=== PATIENT | female | born 1935 | race Caucasian/White ===

== ENCOUNTER 2024-01-13 12:16 | Inpatient (IN) | payer MEDICARE, BC, OTHER ==
--- NOTE | 2024-01-13 12:47 | ED ---
General Adult HPI - General Chief complaint: Fall Stated complaint: AMS Time Seen by Provider: 01/13/24 12:25 Source: patient, EMS, RN notes reviewed, old records reviewed Mode of arrival: EMS - History of Present Illness Initial comments: This is an 88-year-old female who presents to the emergency department after being found down by a neighbor. Patient herself states she fell down next to her recliner but according to EMS at the time they found her she was unable to figure out how she got on the ground. Patient is on Eliquis. Patient denies any pain at this time. Patient does have severe dementia according to the neighbors. Patient denies a headache patient denies neck pain patient has numbness weakness. Patient denies any chest pain difficulty breathing shortness of breath. Patient has any abdominal pain. Patient has any extremity pain. - Related Data Home Medications Medication Instructions Recorded Confirmed Apixaban [Eliquis] 5 mg PO BID 05/16/21 01/13/24 Aspirin EC [Ecotrin Low Dose] 81 mg PO DAILY 05/16/21 01/13/24 Furosemide [Lasix] 20 mg PO DAILY 05/16/21 01/13/24 Metoprolol Tartrate [Lopressor] 50 mg PO BID 05/16/21 01/13/24 Simvastatin [Zocor] 20 mg PO HS 05/16/21 01/13/24 allopurinoL [Zyloprim] 100 mg PO DAILY 05/16/21 01/13/24 hydrALAZINE HCL [Apresoline] 25 mg PO BID 01/13/24 01/13/24 Allergies Allergy/AdvReac Type Severity Reaction Status Date / Time No Known Allergies Allergy Verified 01/13/24 15:06 Review of Systems ROS Statement: Those systems with pertinent positive or pertinent negative responses have been documented in the HPI. ROS Other: All systems not noted in ROS Statement are negative. Past Medical History Past Medical History: Atrial Fibrillation Additional Past Medical History / Comment(s): Gout approx 20 years ago History of Any Multi-Drug Resistant Organisms: None Reported Past Surgical History: No Surgical Hx Reported Past Anesthesia/Blood Transfusion Reactions: No Reported Reaction Past Psychological History: No Psychological Hx Reported Smoking Status: Never smoker Past Alcohol Use History: None Reported Past Drug Use History: None Reported General Exam - General Exam Comments Initial Comments: GENERAL: Patient is well-developed and well-nourished. Patient is nontoxic and well- hydrated and is in no acute distress. ENT: Neck is soft and supple. No significant lymphadenopathy is noted. Oropharynx is clear. Moist mucous membranes. Neck has full range of motion without eliciting any pain. EYES: The sclera were anicteric and conjunctiva were pink and moist. Extraocular movements were intact and pupils were equal round and reactive to light. Eyelids were unremarkable. PULMONARY: Unlabored respirations. Good breath sounds bilaterally. No audible rales rhonchi or wheezing was noted. CARDIOVASCULAR: There is a regular rate and rhythm without any murmurs gallops or rubs. ABDOMEN: Soft and nontender with normal bowel sounds. SKIN: Skin is clear with no lesions or rashes and otherwise unremarkable. Left side of the head in the temporal region is mildly erythematous NEUROLOGIC: Patient is alert and oriented x 2. Cranial nerves II through XII are grossly intact. Motor and sensory are also intact. Normal speech, volume and content. Symmetrical smile. MUSCULOSKELETAL: Normal extremities with adequate strength and full range of motion. LYMPHATICS: No significant lymphadenopathy is noted PSYCHIATRIC: Normal psychiatric evaluation. Course Vital Signs 01/13/24 01/13/24 12:19 17:02 Temperature 97.8 F 97.6 F Pulse Rate 126 H 117 H Respiratory 18 18 Rate Blood Pressure 137/64 143/88 O2 Sat by Pulse 96 98 Oximetry Medical Decision Making - Medical Decision Making EKG shows atrial fibrillation with rapid ventricular response at 117 bpm QRS is 81 QT is 322 QTc is 392. Patient's EKG shows no ST segment ovation or depression. Was pt. sent in by a medical professional or institution (, PA, HOB MACHINE OPERATOR, urgent care, hospital, or usp...) When possible be specific @ -No Did you speak to anyone other than the patient for history (EMS, parent, family, police, friend...)? What history was obtained from this source @ -No Did you review nursing and triage notes (agree or disagree)? Why? @ -I reviewed and agree with nursing and triage notes Were old charts reviewed (outside hosp., previous admission, EMS record, old EKG, old radiological studies, urgent care reports/EKG's, usp records)? Report findings @ -No old charts were reviewed Differential Diagnosis? @ -Differential Altered Mental Status: Hypoglycemia, DKA, hypercapnia, ETOH, overdose, CO poisoning, trauma, myxedema coma, HTN encephalopathy, infection, encephalitis, psychosis, intercranial hemorrhage, hepatic encephalopathy, meningitis, CVA, this is not meant to be an all-inclusive list EKG interpreted by me (3pts min.). @ -As above X-rays interpreted by me (1pt min.). @ -Chest x-ray shows no acute abnormality CT interpreted by me (1pt min.). @ -CT of the brain and C-spine showed no acute abnormality U/S interpreted by me (1pt. min.). @ -None done What testing was considered but not performed or refused? (CT, X-rays, U/S, labs)? Why? @ -None What meds were considered but not given or refused? Why? @ -None Did you discuss the management of the patient with other professionals (rtini garcia i.eLeigh Robbins, PA, HOB MACHINE OPERATOR, lab, RT, psych nurse, social worker health services, traveling operator, teacher, chief investment officer, case checker)? Give summary @ -[facility] Was smoking cessation discussed for >3mins.? @ -No Was critical care preformed (if so, how long)? @ -No Were there social determinants of health that impacted care today? How? (Homelessness, low income, unemployed, alcoholism, drug addiction, transportation, low edu. Level, literacy, decrease access to med. care, residential, rehab)? @ -No Was there de-escalation of care discussed even if they declined (Discuss DNR or withdrawal of care, Hospice)? DNR status @ -No What co-morbidities impacted this encounter? (DM, HTN, Smoking, COPD, CAD, Cancer, CVA, ARF, Chemo, Hep., AIDS, mental health diagnosis, sleep apnea, morbid obesity)? @ -None Was patient admitted / discharged? Hospital course, mention meds given and route, prescriptions, significant lab abnormalities, going to OR and other pertinent info. @ -Patient was started on antibiotics for the urinary tract infection. Patient was also hydrated because her lab work indicated she was very dehydrated. Patient CPK was elevated and it will be repeated in the morning. [facility] admit the patient wrote admitting orders Undiagnosed new problem with uncertain prognosis? @ -No Drug Therapy requiring intensive monitoring for toxicity (Heparin, Nitro, Insulin, Cardizem)? @ -No Were any procedures done? @ -No Diagnosis/symptom? @ -Dehydration Acute, or Chronic, or Acute on Chronic? @ -Acute Uncomplicated (without systemic symptoms) or Complicated (systemic symptoms)? @ -Complicated Side effects of treatment? @ -No Exacerbation, Progression, or Severe Exacerbation? @ -No Poses a threat to life or bodily function? How? (Chest pain, [place], [place], pneumonia, PE, COPD, DKA, ARF, appy, cholecystitis, CVA, Diverticulitis, Homicidal, Suicidal, threat to staff... and all critical care pts) @ -No Diagnosis/symptom? @ -Elevated CPK Acute, or Chronic, or Acute on Chronic? @ -Acute Uncomplicated (without systemic symptoms) or Complicated (systemic symptoms)? @ -Complicated Side effects of treatment? @ -None Exacerbation, Progression, or Severe Exacerbation] @ -No Poses a threat to life or bodily function? @ -No Diagnosis/symptom? @ -Urinary tract Acute, or Chronic, or Acute on Chronic? @ -Acute Uncomplicated (without systemic symptoms) or Complicated (systemic symptoms)? @ -Uncomplicated Side effects of treatment? @ -None Exacerbation, Progression, or Severe Exacerbation] @ -No Poses a threat to life or bodily function? @ -No - Lab Data Result diagrams: 01/13/24 12:41 01/13/24 12:41 Lab Results 01/13/24 01/13/24 01/13/24 Range/Units 12:41 12:41 16:54 WBC 15.3 H (3.8-10.6) k/uL RBC 4.74 (3.80-5.40) m/uL Hgb 14.8 (11.4-16.0) gm/dL Hct 45.4 (34.0-46.0) % MCV 95.9 (80.0-100.0) fL MCH 31.2 (25.0-35.0) pg MCHC 32.6 (31.0-37.0) g/dL RDW 13.3 (11.5-15.5) % Plt Count 236 (150-450) k/uL MPV 9.1 Neutrophils % 89 % Lymphocytes % 5 % Monocytes % 5 % Eosinophils % 0 % Basophils % 0 % Neutrophils # 13.6 H (1.3-7.7) k/uL Lymphocytes # 0.8 L (1.0-4.8) k/uL Monocytes # 0.7 (0-1.0) k/uL Eosinophils # 0.0 (0-0.7) k/uL Basophils # 0.0 (0-0.2) k/uL Sodium 144 (137-145) mmol/L Potassium 4.7 (3.5-5.1) mmol/L Chloride 109 H (98-107) mmol/L Carbon Dioxide 23 (22-30) mmol/L Anion Gap 12 mmol/L BUN 53 H (7-17) mg/dL Creatinine 1.16 H (0.52-1.04) mg/dL Est GFR (CKD-EPI)AfAm 50 (>60 ml/min/1.73 sqM) Est GFR (CKD-EPI)NonAf 43 (>60 ml/min/1.73 sqM) Glucose 169 H (74-99) mg/dL Calcium 10.3 H (8.4-10.2) mg/dL Magnesium 2.1 (1.6-2.3) mg/dL Total Bilirubin 1.7 H (0.2-1.3) mg/dL AST 67 H (14-36) U/L ALT 30 (4-34) U/L Alkaline Phosphatase 66 (38-126) U/L Creatine Kinase 649 H (30-135) U/L Total Protein 7.1 (6.3-8.2) g/dL Albumin 4.4 (3.5-5.0) g/dL Urine Color Yellow Urine Appearance Clear (Clear) Urine pH 5.5 (5.0-8.0) Ur Specific [place] 1.026 (1.001-1.035) Urine Protein 1+ H (Negative) Urine Glucose (UA) Negative (Negative) Urine Ketones 1+ H (Negative) Urine Blood Negative (Negative) Urine Nitrite Negative (Negative) Urine Bilirubin Negative (Negative) Urine Urobilinogen <2.0 (<2.0) mg/dL Ur Leukocyte Esterase Large H (Negative) Urine RBC 5 (0-5) /hpf Urine WBC 40 H (0-5) /hpf Ur Squamous Epith Cells 1 (0-4) /hpf Urine Bacteria Rare H (None) /hpf Hyaline Casts 3 H (0-2) /lpf Urine Mucus Rare H (None) /hpf Disposition Clinical Impression: Fall, UTI (urinary tract infection), Dehydration, Elevated CPK Disposition: ADMITTED IP TO THIS HOSP Referrals: Conner Lujan MD [Primary Care Provider] - 1-2 days Time of Disposition: 17:33
[2024-01-13 12:51] LABS: Basophils % (A) 0 %; Eosinophils % (A) 0 %; HCT 45.4 % (34.0-46.0); HGB 14.8 gm/dL (11.4-16.0); Lymphocytes # (A) 0.8 k/uL (1.0-4.8); Lymphocytes % (A) 5 %; MCH 31.2 pg (25.0-35.0); MCHC 32.6 g/dL (31.0-37.0); MCV 95.9 fL (80.0-100.0); Mean Platelet Volume 9.1; Monocytes # (A) 0.7 k/uL (0-1.0); Monocytes % (A) 5 %; Neutrophils # (A) 13.6 k/uL (1.3-7.7); Neutrophils % (A) 89 %; Platelet Count 236 k/uL (150-450); RBC 4.74 m/uL (3.80-5.40); RDW 13.3 % (11.5-15.5); WBC 15.3 k/uL (3.8-10.6)
[2024-01-13 13:04] LABS: African American GFR (CKD) 50 (>60 ml/min/1.73 sqM); Albumin 4.4 g/dL (3.5-5.0); Anion Gap 12 mmol/L; Blood Urea Nitrogen 53 mg/dL (7-17); Calcium 10.3 mg/dL (8.4-10.2); Carbon Dioxide 23 mmol/L (22-30); Chloride 109 mmol/L (98-107); Creatine Kinase 649 U/L (30-135); Glucose 169 mg/dL (74-99); Non-African American GFR(CKD) 43 (>60 ml/min/1.73 sqM); Sodium 144 mmol/L (137-145); Total Bilirubin 1.7 mg/dL (0.2-1.3); Total Protein 7.1 g/dL (6.3-8.2)
[2024-01-13 13:13] LABS: ALT 30 U/L (4-34)
[2024-01-13 13:18] LABS: AST 67 U/L (14-36); Alkaline Phosphatase 66 U/L (38-126); Magnesium 2.1 mg/dL (1.6-2.3); Potassium 4.7 mmol/L (3.5-5.1)
--- NOTE | 2024-01-13 13:24 | CT ---
EXAMINATION TYPE: CT brain cspine wo con CT DLP: 1412.5 mGycm, Automated exposure control for dose reduction was used. DATE OF EXAM: 01/13/2024 1:16 PM COMPARISON: None.. CLINICAL INDICATION:Female, 88 years old with history of Trauma; Fall. TECHNIQUE: Brain: Multiple axial CT images of the brain were obtained without IV contrast. Cspine: Axial CT images from the skull base to the inferior aspect of T2 we obtained without intraven ous contrast. Coronal and sagittal reformatted images were also reviewed. FINDINGS: Brain: Extra-axial spaces: No abnormal extra-axial fluid collections. Ventricular system: Within normal limits Cerebral parenchyma: Cerebral atrophy. No acute intraparenchymal hemorrhage or mass effect. The brown -white junction is well differentiated. Scattered hypoattenuating areas are seen within the periventr icular white matter. Cerebellum: Unremarkable. Mass effect: No evidence of midline shift. Intracranial vasculature: Atherosclerotic calcifications of the intracranial vessels. Soft tissues: Left lateral parietal small scalp hematoma. Calvarium/osseous structures: No depressed skull fracture. Benign hyperostosis frontalis noted. Paranasal sinuses and mastoid air cells: Clear. Visualized orbits: Bilateral aphakia Cervical spine: Fracture: None. Osseous structures: Multilevel degenerative disc disease changes with endplate spurring and disc oste ophyte complex's. Vertebral alignment: Degenerative grade 1 anterolisthesis of C3 and C4 and C7 on T1. Spinal canal/Neural Foramina: Disc osteophyte complexes at C4-C5, C5-C6, and C6-C7 with at least mild spinal canal stenosis. Facet joint uncovertebral joint arthropathy scattered throughout the cervical spine with varying degrees of neural foraminal stenosis. Neck soft tissues: Prevertebral soft tissues are within normal limits. Other: The airway is patent. The lung apices are clear. Moderate bilateral carotid bulb calcification s with mild left retropharyngeal course. IMPRESSION: 1. No acute intracranial process. 2. Nonspecific white matter changes, likely secondary to chronic small vessel ischemic disease. 3. Tiny left parietal scalp hematoma. 4. No evidence of cervical spine fracture. 5. Moderate multilevel degenerative disc disease. [facility], , 01/13/2024 1:22 PM
--- NOTE | 2024-01-13 15:04 | XR ---
EXAMINATION TYPE: XR chest 2V DATE OF EXAM: 01/13/2024 2:53 PM CLINICAL INDICATION: Female, 88 years old with history of Difficulty breathing ; [facility] COMPARISON: Chest radiographs from 05/16/2021 TECHNIQUE: XR chest 2V Frontal view of the chest. FINDINGS: Lungs/Pleura: There is no evidence of pleural effusion, focal consolidation, or pneumothorax. Pulmonary vascularity: Unremarkable. Heart/mediastinum: Cardiomediastinal silhouette is unremarkable. Musculoskeletal: No acute osseous pathology. IMPRESSION: No acute cardiopulmonary disease/process. [facility], , 01/13/2024 3:02 PM
[2024-01-13 17:08] LABS: Appearance,Urine Clear (Clear); Bacteria,Urine Rare /hpf; Bilirubin,Urine Negative (Negative); Blood,Urine Negative (Negative); Color,Urine Yellow; Glucose,Urine (UA) Negative (Negative); Hyaline Casts,Urine 3 /lpf (0-2); Ketones,Urine 1+ (Negative); Leukocyte Esterase,Urine Large (Negative); Mucus,Urine Rare /hpf; Nitrite,Urine Negative (Negative); PH, Urine 5.5 (5.0-8.0); Protein,Urine 1+ (Negative); RBC,Urine 5 /hpf (0-5); Specific Gravity,Urine 1.026 (1.001-1.035); Squamous Epithelial Cell,Urine 1 /hpf (0-4); Urobilinogen,Urine <2.0 mg/dL (<2.0); WBC,Urine 40 /hpf (0-5)
[2024-01-13] MEDS ORDERED: cefTRIAXone IN SWFI 1,000 MG/10 ML SYRINGE IVP STA (17:27)
[2024-01-13] MEDS: SODIUM CHLORIDE 0.9% 1,000 ML IV ONE ×2 (18:24→18:26)
[2024-01-13] MEDS: ATORVASTATIN 10 MG TAB PO SCH (20:49)
[2024-01-13] MEDS: METOPROLOL TARTRATE 50 MG TAB PO SCH (20:49)
[2024-01-13] MEDS: hydrALAZINE HCL 25 MG TAB PO SCH (20:49)
[2024-01-13] MEDS: APIXABAN 5 MG TAB PO SCH (20:49)
--- NOTE | 2024-01-14 08:45 | P.HPIM ---
History of Present Illness Chief complaint: Dehydration, abdominal pain, and extremity pain History of present illness; 88-year-old female with a past medical history of hypertension, hyperlipidemia, A-fib (on Eliquis) presents to the hospital after being found down on the ground by a neighbor. Patient reports she fell down next to her recliner but per the ED note EMS at the time found her and she was unable to explain how she got on the ground. Per the ED note according to the neighbors the patient has dementia. Unclear how long patient was down, patient does not remember much of the events that preceded her being on the ground. Patient denies headache, neck pain, numbness, weakness, chest pain, SOB, but does report to abdominal pain and extremity pain. Initial lab work from the ER was significant for WBC 15.3, hemoglobin 14.8, MCV 95.9, neutrophils 13.6, sodium 144, creatinine 1.16, glucose 169, calcium 10.3, T. bili 1.7, AST 67, ALT 30, creatinine kinase 649, and UA significant for large leukocyte esterase, urine WBC 40. EKG done in the ER showed heart rate of 117 bpm, no ST segment elevation or depression seen, no T-wave inversions seen. A-fib with RVR, left axis deviation, septal TX probably old. ER CXR: No acute cardiopulmonary disease/process. ER CT Head/cervical spine: No acute intracranial process, chronic small vessel ischemic disease, tiny left parietal scalp hematoma, no evidence of cervical spine fracture, and moderate multilevel degenerative disc disease. Patient admitted to internal medicine service REVIEW OF SYSTEMS: CONSTITUTIONAL: No fever, no malaise, admits weakness. HEENT: No recent visual problems or hearing problems. Denied any sore throat. CARDIOVASCULAR: No chest pain, orthopnea, PND, no palpitations, no syncope. PULMONARY: No shortness of breath, no cough, no hemoptysis. GASTROINTESTINAL: No diarrhea, no nausea, no vomiting, no abdominal pain. NEUROLOGICAL: No headaches, no weakness, no numbness. HEMATOLOGICAL: Denies any bleeding or petechiae. GENITOURINARY: Admits to burning micturition but no increase in frequency, or urgency. MUSCULOSKELETAL/RHEUMATOLOGICAL: Denies any joint pain, swelling, or any muscle pain. Admits to extremity pain. ENDOCRINE: Denies any polyuria or polydipsia. The rest of the 14-point review of systems is negative. PHYSICAL EXAMINATION: GENERAL: The patient is alert and oriented x3, not in any acute distress. Well developed, well nourished. HEENT: Pupils are round and equally reacting to light. EOMI. No scleral icterus. No conjunctival pallor. Normocephalic, atraumatic. No pharyngeal erythema. No thyromegaly. CARDIOVASCULAR: S1 and S2 present. No murmurs, rubs, or gallops. PULMONARY: Chest is clear to auscultation b/l, no wheezing or crackles. ABDOMEN: Soft, nontender, nondistended, normoactive bowel sounds. No palpable organomegaly. MUSCULOSKELETAL: No joint swelling or deformity. EXTREMITIES: No cyanosis, clubbing, or pedal edema. NEUROLOGICAL: Gross neurological examination did not reveal any focal deficits. SKIN: No rashes. Assessment & Plan: Acute: # UTI: Pending urine culture, follow-up results Currently on Rocephin 2 g IVPB q. 24 HR Continue to monitor for worsening signs of infection #Rhabdomyolysis: Mild Patient found to have CK of 649, CK from today 1141 Continue IV fluids, but monitor for worsening signs of dyspnea or shortness of breath in the setting of potential CHF exacerbation while giving fluids Continue to monitor #Unwitnessed fall: Patient does not recall how she ended up on the ground Neurology on consult, appreciate further recommendations Fall precautions Continue to monitor Chronic: #A-fib with RVR: Continue home Eliquis 5 mg p.o. twice daily Continue to monitor #Systolic CHF: Continued home Lasix 20 mg p.o. daily #Hypertension: Continue home Lasix 20 mg p.o. daily and metoprolol 50 mg p.o. twice daily, and hydralazine 25 mg p.o. twice daily #Hyperlipidemia: Continue home Lipitor 10 mg p.o. at bedtime F: NS 75 cc/h E: None N: Regular diet DVT ppx: Eliquis 5 mg p.o. twice daily GI ppx: Protonix 40 mg p.o. AC breakfast Dispo: Pending clinical course Brice Meraz MD PGY-1 FM Dictation was produced using [employer] dictation software. please excuse any grammatical, word or spelling errors. Past Medical History Past Medical History: Atrial Fibrillation Additional Past Medical History / Comment(s): Gout approx 20 years ago History of Any Multi-Drug Resistant Organisms: None Reported Past Surgical History: No Surgical Hx Reported Past Anesthesia/Blood Transfusion Reactions: No Reported Reaction Past Psychological History: No Psychological Hx Reported Smoking Status: Never smoker Past Alcohol Use History: None Reported Past Drug Use History: None Reported Medications and Allergies Home Medications Medication Instructions Recorded Confirmed Type Apixaban [Eliquis] 5 mg PO BID 05/16/21 01/13/24 History Aspirin EC [Ecotrin Low Dose] 81 mg PO DAILY 05/16/21 01/13/24 History Furosemide [Lasix] 20 mg PO DAILY 05/16/21 01/13/24 History Metoprolol Tartrate [Lopressor] 50 mg PO BID 05/16/21 01/13/24 History Simvastatin [Zocor] 20 mg PO HS 05/16/21 01/13/24 History allopurinoL [Zyloprim] 100 mg PO DAILY 05/16/21 01/13/24 History hydrALAZINE HCL [Apresoline] 25 mg PO BID 01/13/24 01/13/24 History Allergies Allergy/AdvReac Type Severity Reaction Status Date / Time No Known Allergies Allergy Verified 01/13/24 15:06 Physical Exam Vitals: Vital Signs Temp Pulse Pulse Resp BP BP Pulse Ox 01/14/24 07:48 98.3 F 95 36 H 144/81 99 01/14/24 07:00 97.8 F 84 15 126/78 96 01/14/24 04:11 97.9 F 79 17 127/84 98 01/13/24 22:22 98.8 F 74 17 140/66 98 01/13/24 21:49 80 15 142/75 97 01/13/24 20:07 97.8 F 89 17 140/85 99 01/13/24 18:27 88 18 145/75 98 01/13/24 17:02 97.6 F 117 H 18 143/88 98 01/13/24 12:19 97.8 F 126 H 18 137/64 96 Intake and Output 01/13/24 01/14/24 01/14/24 22:59 06:59 14:59 Other: Voiding Method Bedside Commode Bedside Commode Weight 79.379 kg Results CBC & Chem 7: 01/14/24 08:50 01/14/24 08:50 Labs: Abnormal Lab Results - Last 24 Hours (Table) 01/13/24 01/13/24 01/13/24 Range/Units 12:41 12:41 16:54 WBC 15.3 H (3.8-10.6) k/uL Neutrophils # 13.6 H (1.3-7.7) k/uL Lymphocytes # 0.8 L (1.0-4.8) k/uL Chloride 109 H (98-107) mmol/L BUN 53 H (7-17) mg/dL Creatinine 1.16 H (0.52-1.04) mg/dL Glucose 169 H (74-99) mg/dL Calcium 10.3 H (8.4-10.2) mg/dL Total Bilirubin 1.7 H (0.2-1.3) mg/dL AST 67 H (14-36) U/L Creatine Kinase 649 H (30-135) U/L Urine Protein 1+ H (Negative) Urine Ketones 1+ H (Negative) Ur Leukocyte Esterase Large H (Negative) Urine WBC 40 H (0-5) /hpf Urine Bacteria Rare H (None) /hpf Hyaline Casts 3 H (0-2) /lpf Urine Mucus Rare H (None) /hpf
[2024-01-14 09:25] LABS: Basophils % (A) 0 %; Eosinophils # (A) 0.1 k/uL (0-0.7); Eosinophils % (A) 1 %; HCT 37.9 % (34.0-46.0); HGB 12.2 gm/dL (11.4-16.0); Lymphocytes # (A) 1.7 k/uL (1.0-4.8); Lymphocytes % (A) 18 %; MCV 96.9 fL (80.0-100.0); Mean Platelet Volume 9.4; Monocytes # (A) 0.7 k/uL (0-1.0); Monocytes % (A) 7 %; Neutrophils # (A) 6.5 k/uL (1.3-7.7); Neutrophils % (A) 70 %; Platelet Count 188 k/uL (150-450); RBC 3.92 m/uL (3.80-5.40); RDW 13.6 % (11.5-15.5); WBC 9.2 k/uL (3.8-10.6)
[2024-01-14] MEDS: allopurinoL 100 MG TAB PO SCH (09:48)
[2024-01-14] MEDS: ASPIRIN 81 MG PO SCH (09:48)
[2024-01-14] MEDS: FUROSEMIDE 20 MG TAB PO SCH (09:48)
[2024-01-14] MEDS: SODIUM CHLORIDE 0.9% 1,000 ML IV SCH (09:49)
[2024-01-14 10:04] LABS: ALT 22 U/L (4-34); African American GFR (CKD) 66 (>60 ml/min/1.73 sqM); Albumin 3.4 g/dL (3.5-5.0); Albumin/Globulin Ratio 1.4; Anion Gap 7 mmol/L; Blood Urea Nitrogen 39 mg/dL (7-17); Calcium 9.5 mg/dL (8.4-10.2); Carbon Dioxide 22 mmol/L (22-30); Chloride 112 mmol/L (98-107); Globulin 2.5 g/dL; Glucose 147 mg/dL (74-99); Non-African American GFR(CKD) 57 (>60 ml/min/1.73 sqM); Sodium 141 mmol/L (137-145); Total Bilirubin 1.8 mg/dL (0.2-1.3); Total Protein 5.9 g/dL (6.3-8.2)
[2024-01-14 10:07] LABS: AST 74 U/L (14-36); Alkaline Phosphatase 50 U/L (38-126); Magnesium 2.1 mg/dL (1.6-2.3); Potassium 4.3 mmol/L (3.5-5.1)
[2024-01-15] MEDS: PANTOPRAZOLE 40 MG TABLET PO SCH (06:43)
[2024-01-15 08:39] LABS: HCT 39.3 % (37.2-46.3); HGB 12.7 g/dL (12.0-15.0); MCHC 32.3 g/dL (32.0-37.0); MCV 95.9 FL (80.0-97.0); Mean Platelet Volume 12.4 FL (9.5-12.2); NRBC Per 100 WBC 0 X 10*3/uL (0.00-0.01); Platelet Count 180 X 10*3/uL (140-440); RDW 13.5 % (11.5-14.5); WBC 8.47 X 10*3/uL (4.50-10.00)
[2024-01-15 09:23] LABS: ALT 20 U/L (8-44); AST 49 U/L (13-35); Albumin 3.5 g/dL (3.8-4.9); Albumin/Globulin Ratio 1.75 Ratio (1.60-3.17); Alkaline Phosphatase 71 U/L (41-126); Blood Urea Nitrogen 36.5 mg/dL (9.0-27.0); Chloride 112 mmol/L (96-109); Creatine Kinase 632 U/L (26-186); Glucose 97 mg/dL (70-110); Potassium 3.7 mmol/L (3.5-5.5); Sodium 145 mmol/L (135-145); Total Bilirubin 0.5 mg/dL (0.3-1.2); Total Protein 5.5 g/dL (6.2-8.2)
--- NOTE | 2024-01-15 10:25 | CDI ---
Documentation Clarification Form Date: 01/15/2024 10:00:11 AM From: Karol Montes De Oca RN CCDS Phone: [phone] Admit Date: 01/14/2024 01:44:00 PM Patient Name: Sandra Pro Visit Number: [id number] Discharge Date: ATTENTION: The Clinical Documentation Specialists (CDI) and [facility] Coding Staff appreciate your assistance in clarifying documentation. Please respond to the clarification below the line at the bottom and electronically sign. The CDI & [facility] Coding staff will review the response and follow-up if needed. Please note: Queries are made part of the Legal Health Record. If you have any questions, please contact the author of this message via ITS. Doctor: Laisha: Rhabdomyolysis is documented . Additional clarification regarding the type of rhabdomyolysis is requested. History/Risk Factors: 88 year old female presents to the ED via EMS after being found down on the ground by a neighbor. She was next to her recliner and unable to explain how she got there. Medical history: Dementia, Afib RVR, Systolic CHF, HTN and HLD. 01/13, HP. Clinical Indicators: VSS, 01/12: B/P 137/64, HR 126; RR 18; SpO2 96% ra Creatinine Kinase: 01/12 649; 01/13 1141; 01/14 632. Treatment: 01/12 0.9ns 1L IV Fluid bolus x 1; 01/12 01/13 0.9NS IV 100cc/hr; 01/13 0.9NS IV 75cc/hr. Please clarify the type of rhabdomyolysis, if known: [ x ] Traumatic rhabdomyolysis due to fall [ ] Traumatic rhabdomyolysis due to prolonged immobility [ ] Other, please specify [ ] Unable to Determine (Template Last Revised: May 2020) MTDD
--- NOTE | 2024-01-15 10:37 | P.CNNES ---
History of Present Illness Consult date: 01/14/24 Requesting physician: Brice Meraz Reason for Consult: Change in mental status History of Present Illness: Patient is a 88-year-old female came to the hospital by ambulance yesterday at 12:16 PM for a fall and altered mental status. EMS flowsheet not available in the chart. Patient's daughter and son-in-law were also present, who also provided with a history. Patient apparently fell and was not able to get up by herself. Patient's 2 daughters call her daily, 1 in the morning and 1 in the evening. Patient's daughter tried to call her, and she did not answer the phone. Half an hour later, patient's daughter called again, when she did not respond, they called the neighbor, who went in and found patient laying in the living room floor. They activated the life alert and EMS arrived. Patient was noted to be in atrial fibrillation with rapid ventricular rate. Patient does have history of chronic A-fib. Patient did pass out but for short period of time. Patient's daughter mentions that she is very inactive, does not do anything. She does stay well-hydrated, drinks about 3 bottles of water and 1-2 boost every day. Patient had symptoms of some UTI about a month ago with dysuria, but she did not seek medical attention. Patient lives by herself and walks by herself although it is harder to for her to walk. Her house is small and she usually gets around house well, by touching and hanging. She does have a walker, but she does not use it. Patient has history of UTIs in the past as w luda. Vital signs on arrival blood pressure 137/64, pulse rate 126, temperature 97.8. Blood test shows normal hemoglobin WBC 15.3, which came down to 9.2. Platelets are normal. Electrolytes are normal, BUN was 53 creatinine 1.16, which came down to 39 and 0.91 respectively. Calcium was up to 10.3, but now 9.5. AST was 67, ALT 30. CK was 649. UA shows large amount of leukocytes esterase and 40 WBCs and rare bacteria. EKG showed atrial fibrillation with rapid ventricular response. CT head revealed no acute intracranial process. Nonspecific white matter changes, likely secondary to chronic small vessel ischemic disease. Tiny left scalp hematoma. CT of the cervical spine showed no evidence of cervical spine fracture. Moderate multilevel degenerative disc disease. Chest x-ray revealed no acute cardiopulmonary process. Patient currently on Eliquis 5 mg twice daily, Lasix, metoprolol, aspirin 81 mg, hydralazine, simvastatin 20 mg and allopurinol. Patient has been started on ceftriaxone 2 g every 24 hours. Patient denies any tobacco or alcohol use. Denies diabetes. Patient has some visual disturbance related to her cataract surgery and is progressively getting worse, but denies any recent worsening. Review of Systems All pertinent positive and negatives mentioned in the HPI. Patient denies any chest pain, shortness of breath. No double vision. Past Medical History Past Medical History: Atrial Fibrillation Additional Past Medical History / Comment(s): Gout approx 20 years ago History of Any Multi-Drug Resistant Organisms: None Reported Past Surgical History: No Surgical Hx Reported Past Anesthesia/Blood Transfusion Reactions: No Reported Reaction Past Psychological History: No Psychological Hx Reported Smoking Status: Never smoker Past Alcohol Use History: None Reported Past Drug Use History: None Reported Medications and Allergies Home Medications Medication Instructions Recorded Confirmed Type Apixaban [Eliquis] 5 mg PO BID 05/16/21 01/13/24 History Aspirin EC [Ecotrin Low Dose] 81 mg PO DAILY 05/16/21 01/13/24 History Furosemide [Lasix] 20 mg PO DAILY 05/16/21 01/13/24 History Metoprolol Tartrate [Lopressor] 50 mg PO BID 05/16/21 01/13/24 History Simvastatin [Zocor] 20 mg PO HS 05/16/21 01/13/24 History allopurinoL [Zyloprim] 100 mg PO DAILY 05/16/21 01/13/24 History hydrALAZINE HCL [Apresoline] 25 mg PO BID 01/13/24 01/13/24 History Allergies Allergy/AdvReac Type Severity Reaction Status Date / Time No Known Allergies Allergy Verified 01/13/24 15:06 Physical Examination - Vital Signs Vital Signs: Vital Signs Temp Pulse Pulse Resp BP BP Pulse Ox 01/14/24 14:41 98.5 F 76 18 142/82 99 01/14/24 11:37 97.6 F 81 18 142/71 99 01/14/24 10:20 95 01/14/24 07:48 98.3 F 95 36 H 144/81 99 01/14/24 07:00 97.8 F 84 15 126/78 96 01/14/24 04:11 97.9 F 79 17 127/84 98 01/13/24 22:22 98.8 F 74 17 140/66 98 01/13/24 21:49 80 15 142/75 97 01/13/24 20:07 97.8 F 89 17 140/85 99 01/13/24 18:27 88 18 145/75 98 Intake and Output 01/14/24 01/14/24 01/14/24 06:59 14:59 22:59 Other: Voiding Method Bedside Commode Toilet # Voids 1 Patient is an elderly female, in no acute distress. Patient is alert awake. Patient could not tell the month or the year, although she was able to tell that een is coming. She knows her family members very well. She believes that she is in a rehab place. Speech and language functions are normal. Patient can name and repeat very well. No aphasia or dysarthria. Attention, concentration is intact and fund of knowledge is limited. Detailed cognitive function testing deferred.. On cranial nerve examination, pupils are equal, round and reacting to light, visual syed are full on confrontation, with no neglect on double simultaneous stimulation. Extraocular muscles are intact with no nystagmus. Face is symmetric, tongue protrudes to the midline. Palatal elevation and sensation normal, hearing and shoulder shrug normal, facial sensation normal. On muscle strength testing, there is no pronator drift and the strength is normal in arms and legs distally and proximally, except hip flexion, which is about 4 to 4-bilaterally.. Deep tendon reflexes are symmetric 1+ and plantars downgoing. Sensory to touch is equal with no neglect on double simultaneous stimulation. Cerebellar function showed no ataxia for [id number] testing. No ataxia for [id number] testing on either side. Tone and bulk of muscles normal. Gait deferred.. On general examination, there is no carotid bruit or murmur, S1-S2 audible. Chest is clear on consultation. Abdomen is soft nontender. No organomegaly, bowel sounds present. Peripheral pulses are present. No peripheral edema. Results - Laboratory Findings CBC and BMP: 01/15/24 04:51 01/15/24 04:51 Abnormal Lab Findings: Abnormal Labs 01/13/24 01/13/24 01/13/24 12:41 12:41 16:54 WBC 15.3 H Neutrophils # 13.6 H Lymphocytes # 0.8 L Chloride 109 H BUN 53 H Creatinine 1.16 H Glucose 169 H Calcium 10.3 H Total Bilirubin 1.7 H AST 67 H Creatine Kinase 649 H Total Protein Albumin Urine Protein 1+ H Urine Ketones 1+ H Ur Leukocyte Esterase Large H Urine WBC 40 H Urine Bacteria Rare H Hyaline Casts 3 H Urine Mucus Rare H 01/14/24 01/14/24 04:10 08:50 WBC Neutrophils # Lymphocytes # Chloride 112 H BUN 39 H Creatinine Glucose 147 H Calcium Total Bilirubin 1.8 H AST 74 H Creatine Kinase 1141 A* Total Protein 5.9 L Albumin 3.4 L Urine Protein Urine Ketones Ur Leukocyte Esterase Urine WBC Urine Bacteria Hyaline Casts Urine Mucus Assessment and Plan Assessment: * Syncope and fall, likely due to vasovagal versus orthostasis. Reasons multifactorial as mentioned below * Acute UTI * Dehydration * Acute kidney injury, improving * Atrial fibrillation with rapid ventricular rate * Rhabdomyolysis due to fall * Memory disturbance, possible mild cognitive impairment. Plan: * Patient is being treated for acute UTI, currently on ceftriaxone 2 g every 24 hours. * Continue Eliquis 5 mg twice daily for atrial fibrillation * B12, folate, TSH. * Check orthostatics. * Carotid Doppler. * Patient probably may have underlying mild cognitive impairment. Recommend patient to follow-up in the neurology office for further evaluation of possible underlying cognitive impairment. * PT OT. * Neurology will follow. Thank you for the consult.
--- NOTE | 2024-01-15 14:34 | CA ---
Transthoracic Echo Report Name: Sandra Pro Age: 88 Gender: F : 1935 Exam Date: 01/15/2024 10:35 Exam Location: [facility] Ht (in): 67 Wt (lb): 175 Ordering Physician: Brice Meraz MD Attending/Referring Phys: Body Technician Hallie Ny RDCS Procedure CPT: Indications: chf Cardiac Hx: Technical Quality: Fair Contrast 1: Total Dose (mL): Contrast 2: Total Dose (mL): MEASUREMENTS (Male / Female) Normal Values 2D ECHO LV Diastolic Diameter PLAX 3.4 cm 4.2 - 5.9 / 3.9 - 5.3 cm LV Systolic Diameter PLAX 2.0 cm IVS Diastolic Thickness 1.1 cm 0.6 - 1.0 / 0.6 - 0.9 cm LVPW Diastolic Thickness 1.3 cm 0.6 - 1.0 / 0.6 - 0.9 cm LV Relative Wall Thickness 0.7 RV Internal Dim ED PLAX 2.3 cm LVOT Diameter 1.7 cm LA Systolic Diameter LX 5.3 cm 3.0 - 4.0 / 2.7 - 3.8 cm LV Diastolic Volume MOD BP 32.3 cm??? 67 - 155 / 56 - 104 cm??? LV Systolic Volume MOD BP 13.7 cm??? 22 - 58 / 19 - 49 cm??? LV Ejection Fraction MOD BP 57.5 % >= 55 % LV Cardiac Index MOD BP 1036.3 cm???/min???m??? LV Diastolic Volume MOD 4C 31.1 cm??? LV Systolic Volume MOD 4C 12.5 cm??? LV Ejection Fraction MOD 4C 59.8 % LV Cardiac Index MOD 4C 1036.2 cm???/min???m??? LV Diastolic Length 4C 5.6 cm LV Systolic Length 4C 4.6 cm LV Diastolic Volume MOD 2C 32.0 cm??? LV Systolic Volume MOD 2C 13.3 cm??? LV Ejection Fraction MOD 2C 58.4 % LV Cardiac Index MOD 2C 1042.3 cm???/min???m??? LV Diastolic Length 2C 6.0 cm LV Systolic Length 2C 5.6 cm LA Volume 90.0 cm??? 18 - 58 / 22 - 52 cm??? LA Volume Index 46.0 cm???/m??? 16 - 28 cm???/m??? M-MODE Aortic Root Diameter MM 2.6 cm LA Systolic Diameter MM 5.2 cm LA Ao Ratio MM 2.0 AV Cusp Separation MM 1.0 cm DOPPLER AV Peak Velocity 193.5 cm/s AV Peak Gradient 15.0 mmHg AV Mean Velocity 140.7 cm/s AV Mean Gradient 8.8 mmHg AV Velocity Time Integral 43.7 cm LVOT Peak Velocity 72.0 cm/s LVOT Peak Gradient 2.1 mmHg LVOT Velocity Time Integral 18.2 cm LVOT Stroke Volume 39.0 cm??? LVOT Stroke Volume Index 20.4 ml/m??? LVOT Cardiac Index 2175.1 cm???/min???m??? AV Area Cont Eq vti 0.9 cm??? AV Area Cont Eq pk 0.8 cm??? TR Peak Velocity 278.6 cm/s TR Peak Gradient 31.0 mmHg Right Ventricular Systolic Press 39.9 mmHg FINDINGS Left Ventricle Left ventricular ejection fraction is estimated at 55-60 %. Mildly increased septal wall thickness. Moderately increased posterior wall thickness. Normal left ventricular systolic function with no obvious regional wall motion abnormalities. Left ventricular cavity size normal. Right Ventricle Mild right ventricular dilatation. Mild pulmonary hypertension. Right Atrium Severe right atrial dilatation. Left Atrium Severely increased left atrial diameter. Severely increased left atrial volume. Mildly increased left atrial area. Mitral Valve Structurally normal mitral valve. Moderate mitral regurgitation. No mitral stenosis. Mitral annular calcification. Aortic Valve Diffuse thickening of the aortic valve cusps with reduced excursion. Mild aortic stenosis with a peak gradient of 15 mmHg and a mean gradient of 9 mmHg. Mild aortic regurgitation. Tricuspid Valve Structurally normal tricuspid valve. Moderate tricuspid regurgitation. No tricuspid stenosis. Pulmonic Valve Structurally normal pulmonic valve. Mild pulmonic regurgitation. No pulmonic stenosis. Pericardium Minimal pericardial effusion (normal variant). Aorta Normal size aortic root and proximal ascending aorta. CONCLUSIONS Left ventricular ejection fraction 55-60% Mildly increased left ventricular wall thickness RVSP 40 Moderate to severely dilated left and right atrium Mild aortic stenosis Mild aortic regurgitation Moderate mitral regurgitation Moderate tricuspid regurgitation Previewed by: Dr. Raffy Rosas DO (Electronically Signed) Final Date: 15 January 2024 14:33
--- NOTE | 2024-01-15 14:56 | US ---
EXAMINATION TYPE: US carotid duplex BILAT DATE OF EXAM: 01/15/2024 COMPARISON: NONE CLINICAL INDICATION: Female, 88 years old with history of syncope; syncope TECHNIQUE: Grayscale, color Doppler and spectral Doppler evaluation of the bilateral carotid systems and vertebral arteries.Indirect Doppler criteria was utilized. FINDINGS: EXAM MEASUREMENTS: RIGHT: Peak Systolic Velocity (PSV) cm/sec ----- Right CCA: 75.4 ----- Right ICA: 80.3 ----- Right ECA: 166 ICA/CCA ratio: 1.1 RIGHT: End Diastole cm/sec ----- Right CCA: 0 ----- Right ICA: 14.8 ----- Right ECA: 8.9 LEFT: Peak Systolic Velocity (PSV) cm/sec ----- Left CCA: 63.8 ----- Left ICA: 60.8 ----- Left ECA: 135 ICA/CCA ratio: 1.0 LEFT: End Diastole cm/sec ----- Left CCA: 1.01 ----- Left ICA: 4.05 ----- Left ECA: 0 VERTEBRALS (direction of flow): Right Vertebral: Antegrade Left Vertebral: Antegrade Rhythm: Normal PRACTICE ADMINISTRATOR NOTES: Bilateral plaque visualized. No significant stenosis seen IMPRESSION: Right: Less than 50% stenosis of the carotid bifurcation. Normal (no stenosis)=ICA PSV < 125 cm/s: ra pedro < 2.0: ICA EDV<40 cm/s. Left: Less than 50% stenosis of the carotid bifurcation. Normal (no stenosis)=ICA PSV < 125 cm/s: rat io < 2.0: ICA EDV<40 cm/s. Criteria for Assigning % of Stenosis / Diameter reduction (Estimation based on the indirect measurements of the internal carotid artery velocities (ICA PSV). 1. Normal (no stenosis)=ICA PSV < 125 cm/s: ratio < 2.0: ICA EDV<40 cm/s. 2. Less than 50% stenosis=ICA PSV < 125 cm/s: ratio < 2.0: ICA EDV<40 cm/s. 3. 50 to 69% stenosis=ICA PSV of 125 to 230 cm/s: ration 2.0 ? 4.0: ICA EDV 40-100 cm/s. 4. Greater than 70% stenosis to near occlusion= ICA PSV > 230 cm/s: ratio > 4.0: ICA EDV > 100 cm/s. 5. Near occlusion= ICA PSV velocities may be low or undetectable: variable ratio and ICA EDV. 6. Total occlusion=unable to detect flow. [facility], , 01/15/2024 12:47 PM
--- NOTE | 2024-01-15 14:57 | P.CRDCN ---
History of Present Illness History of present illness: HISTORY OF PRESENTING ILLNESS This is a pleasant 88-year-old with past medical history significant for atrial fibrillation, gout, dementia. Patient is a poor historian and much of the histo ry is supplied by chart. Patient normally has family members checking in on her and had attempted to call her however not answer the phone and therefore a neighbor came and checked on patient and she was found to be lying on the floor. EMS arrived and patient was found to be in A. fib with some RVR. Apparently she did lose consciousness temporarily while in the EMS. She does have a history of urinary tract infections and has been having some dysuria and felt this would go away on its own. She usually is somewhat weak eating something to help support her. She believes she fell over unclear how. Initial EKG shows A. fib with RVR however heart rates have been controlled since. She denies any recent chest pain or pressure. Currently today she feels somewhat better. She has seen Dr. Gibson in the past. She denies any hematochezia or melena. White blood cell count 15.3, BUN 53, creatinine 1.1, total bilirubin 1.7, calcium 10.3, AST 67, TSH 2.2, leukocyte esterase large and 40 white blood cells in the urine. Creatinine kinase 649, 1141. REVIEW OF SYSTEMS At the time of my exam: CONSTITUTIONAL: Denies fever or chills. CARDIOVASCULAR: Denies chest pain, shortness of breath, orthopnea, PND or palpitations. RESPIRATORY: Denies cough. GASTROINTESTINAL: Denies abdominal pain, diarrhea, constipation, nausea or vomiting. MUSCULOSKELETAL: Denies myalgias. NEUROLOGIC: Denies numbness, tingling or weakness. ENDOCRINE: Denies fatigue, weight change, polydipsia or polyurina. GENITOURINARY: Denies burning, hematuria or urgency with micturation. HEMATOLOGIC: Denies history of anemia or bleeding. PHYSICAL EXAMINATION Vital signs reviewed. CONSTITUTIONAL: No apparent distress. HEENT: Head is normocephalic. Pupils are equal, round. Sclerae anicteric. Mucous membranes of the mouth are moist. No JVD. No carotid bruit. CHEST EXAMINATION: Lungs are clear to auscultation. No chest wall tenderness is noted on palpation or with deep breathing. HEART EXAMINATION: Regular rate and rhythm. S1, S2 heard. No murmurs, gallops or rub. ABDOMEN: Soft, nontender. Positive bowel sounds. EXTREMITIES: 2+ peripheral pulses, no lower extremity edema and no calf tenderness. NEUROLOGIC EXAMINATION: Patient is awake, alert poor historian ASSESSMENT Fall being found on the ground, unclear history of mechanical versus syncope Urinary tract infection A. fib with RVR improved Hypertension Chronic diastolic heart failure PLAN Main presentation is of fall and question syncope. Likely related to urinary tract infection and weakness. Assess fall risk however continue with anticoagulation for now. Check repeat 2-D echo. Continue to monitor on monitor and likely outpatient monitor. No significant angina-type symptoms. A. fib better controlled on home metoprolol. Past Medical History Past Medical History: Atrial Fibrillation Additional Past Medical History / Comment(s): Gout approx 20 years ago History of Any Multi-Drug Resistant Organisms: None Reported Past Surgical History: No Surgical Hx Reported Past Anesthesia/Blood Transfusion Reactions: No Reported Reaction Past Psychological History: No Psychological Hx Reported Smoking Status: Never smoker Past Alcohol Use History: None Reported Past Drug Use History: None Reported Medications and Allergies Home Medications Medication Instructions Recorded Confirmed Type Apixaban [Eliquis] 5 mg PO BID 05/16/21 01/13/24 History Aspirin EC [Ecotrin Low Dose] 81 mg PO DAILY 05/16/21 01/13/24 History Furosemide [Lasix] 20 mg PO DAILY 05/16/21 01/13/24 History Metoprolol Tartrate [Lopressor] 50 mg PO BID 05/16/21 01/13/24 History Simvastatin [Zocor] 20 mg PO HS 05/16/21 01/13/24 History allopurinoL [Zyloprim] 100 mg PO DAILY 05/16/21 01/13/24 History hydrALAZINE HCL [Apresoline] 25 mg PO BID 01/13/24 01/13/24 History Allergies Allergy/AdvReac Type Severity Reaction Status Date / Time No Known Allergies Allergy Verified 01/13/24 15:06 Physical Exam Vitals: Vital Signs Temp Pulse Pulse Pulse Pulse Resp BP 01/15/24 11:10 98.4 F 79 73 72 135/82 01/15/24 08:00 17 01/15/24 07:10 97.6 F 88 17 01/15/24 02:00 97.4 F L 73 18 BP BP BP Pulse Ox 01/15/24 11:10 120/72 132/80 98 01/15/24 08:00 01/15/24 07:10 164/98 98 01/15/24 02:00 154/71 95 Intake and Output 01/14/24 01/15/24 01/15/24 22:59 06:59 14:59 Intake Total 118 Balance 118 Intake: Oral 118 Other: Voiding Method Toilet Toilet # Voids 1 Results 01/15/24 04:51 01/15/24 04:51 Cardiac Enzymes 01/15/24 Range/Units 04:51 AST 49 H (13-35) U/L CBC 01/15/24 Range/Units 04:51 WBC 8.47 (4.50-10.00) X 10*3/uL RBC 4.10 (4.10-5.20) X 10*6/uL Hgb 12.7 (12.0-15.0) g/dL Hct 39.3 (37.2-46.3) % Plt Count 180 (140-440) X 10*3/uL Comprehensive Metabolic Panel 01/15/24 Range/Units 04:51 Sodium 145 (135-145) mmol/L Potassium 3.7 (3.5-5.5) mmol/L Chloride 112 H (96-109) mmol/L Carbon Dioxide 22.0 (21.6-31.8) mmol/L BUN 36.5 H (9.0-27.0) mg/dL Creatinine 1.0 (0.6-1.5) mg/dL Glucose 97 (70-110) mg/dL Calcium 9.0 (8.7-10.3) mg/dL AST 49 H (13-35) U/L ALT 20 (8-44) U/L Alkaline Phosphatase 71 (41-126) U/L Total Protein 5.5 L (6.2-8.2) g/dL Albumin 3.5 L (3.8-4.9) g/dL Current Medications Generic Name Dose Route Start Last Admin Trade Name Freq PRN Reason Stop Dose Admin Allopurinol 100 mg 01/14/24 09:00 01/15/24 09:24 Allopurinol 100 Mg Tab PO 100 mg DAILY SLADE Administration Apixaban 5 mg 01/13/24 21:00 01/15/24 09:24 Apixaban 5 Mg Tab PO 5 mg BID SLADE Administration Protocol Aspirin 81 mg 01/14/24 09:00 01/15/24 09:24 Aspirin 81 Mg PO 81 mg DAILY SLADE Administration Atorvastatin Calcium 10 mg 01/13/24 21:00 01/14/24 19:48 Atorvastatin 10 Mg Tab PO 10 mg HS SLADE Administration Furosemide 20 mg 01/14/24 09:00 01/15/24 09:23 Furosemide 20 Mg Tab PO 20 mg DAILY SLADE Administration Hydralazine HCl 25 mg 01/13/24 21:00 01/15/24 09:23 Hydralazine Hcl 25 Mg Tab PO 25 mg BID SLADE Administration Ceftriaxone Sodium 2 gm/ 50 mls @ 100 mls/hr 01/14/24 18:00 01/15/24 11:03 Sodium Chloride IVPB 100 mls/hr Q24HR SLADE Administration Protocol Sodium Chloride 1,000 mls @ 75 mls/hr 01/14/24 09:30 01/14/24 19:49 Saline 0.9% IV 75 mls/hr .[id number] Administration Metoprolol Tartrate 50 mg 01/13/24 21:00 01/15/24 09:24 Metoprolol Tartrate 50 Mg Tab PO 50 mg BID SLADE Administration Pantoprazole Sodium 40 mg 01/15/24 07:30 01/15/24 06:43 Pantoprazole 40 Mg Tablet PO 40 mg [id number] SLADE Administration Intake and Output 01/14/24 01/15/24 01/15/24 22:59 06:59 14:59 Intake Total 118 Balance 118 Intake: Oral 118 Other: Voiding Method Toilet Toilet # Voids 1 01/15/24 04:51 01/15/24 04:51
--- NOTE | 2024-01-15 17:04 | P.PN ---
Subjective Chief complaint: Dehydration, abdominal pain, and extremity pain History of present illness; 88-year-old female with a past medical history of hypertension, hyperlipidemia, A-fib (on Eliquis) presents to the hospital after being found down on the ground by a neighbor. Patient reports she fell down next to her recliner but per the ED note EMS at the time found her and she was unable to explain how she got on the ground. Per the ED note according to the neighbors the patient has dementia. Unclear how long patient was down, patient does not remember much of the events that preceded her being on the ground. Patient denies headache, neck pain, numbness, weakness, chest pain, SOB, but does report to abdominal pain and extremity pain. Initial lab work from the ER was significant for WBC 15.3, hemoglobin 14.8, MCV 95.9, neutrophils 13.6, sodium 144, creatinine 1.16, glucose 169, calcium 10.3, T. bili 1.7, AST 67, ALT 30, creatinine kinase 649, and UA significant for large leukocyte esterase, urine WBC 40. EKG done in the ER showed heart rate of 117 bpm, no ST segment elevation or depression seen, no T-wave inversions seen. A-fib with RVR, left axis deviation, septal NE probably old. ER CXR: No acute cardiopulmonary disease/process. ER CT Head/cervical spine: No acute intracranial process, chronic small vessel ischemic disease, tiny left parietal scalp hematoma, no evidence of cervical spine fracture, and moderate multilevel degenerative disc disease. Subjective: 01/15/2024: Patient seen at bedside. No significant overnight events. Patient reports she feels slightly better than yesterday. CK decreased from yesterday. Pertinent positives and negatives discussed above, a complete review of systems was preformed and all the other sytems were negative. Vitals Signs Reveiwed. General: non toxic, no distress, appears at stated age, normal weight Derm: no unusual rashes/lesions, warm Head: atraumatic, normocephalic, symmetric Eyes: EOMI, no lid lag, anicteric sclera, pupils equal round reactive to light ENT: Nose and ears atraumatic Neck: No cervical lymphadenopathy, trachea midline, supple Mouth: no lip lesion, mucus membranes moist Cardiovascular: S1S2 reg, no murmur, positive dorsalis pedis pulse bilateral, no edema Lungs: Decreased air entry bilaterally, no rhonchi, no rales, no accessory muscle use Abdominal: soft, nontender to palpation, no guarding Ext: muscle strength 5 out of 5 in all 4 extremities grossly, no gross muscle atrophy, no contractures, Neuro: CN II-XI grossly intact, no gross focal neuro deficits Psych: Alert, oriented, appropriate affect Data Reveiwed Today: Patient Labs: WBC 8.47, hemoglobin 12.7, MCV 95.9, creatinine 1.0, AST 49, ALT 20, creatinine kinase 632, B12 42, folate 22.2, and TSH 2.250. Imaging: Echo from today showed EF of 55 to 60%, mildly increased left ventricular wall thickness, RVSP 40, moderate to severely dilated left and right atrium, mild aortic stenosis and regurg, moderate mitral regurg, and moderate tricuspid regurgitation. Assessment & Plan: Acute: # UTI: Pending urine culture, follow-up results Currently on Rocephin 2 g IVPB q. 24 HR (day 3) Continue to monitor for worsening signs of infection #Rhabdomyolysis: Mild Patient found to have CK of 649, CK from today 1141 Continue IV fluids, but monitor for worsening signs of dyspnea or shortness of breath in the setting of potential CHF exacerbation while giving fluids Continue to monitor #Unwitnessed fall: Patient does not recall how she ended up on the ground Neurology on consult, appreciate further recommendations Fall precautions Continue to monitor #A-fib with RVR: Continue home Eliquis 5 mg p.o. twice daily Cardiology on consult Echo showed EF of 55 to 60%, mildly increased left ventricular wall thickness, rest as above Continue to monitor ,Chronic: #Systolic CHF: Continued home Lasix 20 mg p.o. daily #Hypertension: Continue home Lasix 20 mg p.o. daily and metoprolol 50 mg p.o. twice daily, and hydralazine 25 mg p.o. twice daily #Hyperlipidemia: Continue home Lipitor 10 mg p.o. at bedtime F: NS 75 cc/h E: None N: Regular diet DVT ppx: Eliquis 5 mg p.o. twice daily GI ppx: Protonix 40 mg p.o. AC breakfast Dispo: Pending clinical course Brice Meraz MD PGY-1 FM Code Status: No code Objective - Vital Signs Vital signs: Vital Signs Temp 97.4 F L 01/15/24 02:00 Pulse 73 01/15/24 02:00 Resp 18 01/15/24 02:00 BP 154/71 01/15/24 02:00 Pulse Ox 95 01/15/24 02:00 FiO2 Intake & Output 01/14/24 01/15/24 01/15/24 18:59 06:59 18:59 Intake Total 118 Balance 118 Intake: Oral 118 Other: Voiding Method Toilet Toilet # Voids 2 1 - Labs CBC & Chem 7: 01/15/24 04:51 01/15/24 04:51 Labs: Abnormal Lab Results - Last 24 Hours (Table) 01/14/24 01/14/24 01/15/24 Range/Units 04:10 08:50 04:51 MPV 12.4 H (9.5-12.2) FL Chloride 112 H (98-107) mmol/L BUN 39 H (7-17) mg/dL Glucose 147 H (74-99) mg/dL Total Bilirubin 1.8 H (0.2-1.3) mg/dL AST 74 H (14-36) U/L Creatine Kinase 1141 A* (26-186) U/L Total Protein 5.9 L (6.3-8.2) g/dL Albumin 3.4 L (3.5-5.0) g/dL
[2024-01-16] MEDS: NYSTATIN 100,000 UNIT/GM POWD 15 GM TOPICAL SCH (06:29)
[2024-01-16 10:36] LABS: HCT 35.6 % (37.2-46.3); HGB 11.6 g/dL (12.0-15.0); MCH 31.2 pg (27.0-32.0); MCHC 32.6 g/dL (32.0-37.0); MCV 95.7 FL (80.0-97.0); Mean Platelet Volume 12.3 FL (9.5-12.2); NRBC Per 100 WBC 0 X 10*3/uL (0.00-0.01); Platelet Count 169 X 10*3/uL (140-440); RBC 3.72 X 10*6/uL (4.10-5.20); RDW 13.6 % (11.5-14.5); WBC 7.09 X 10*3/uL (4.50-10.00)
[2024-01-16 11:01] LABS: BUN/Creat Ratio 27.44 Ratio (12.00-20.00); Blood Urea Nitrogen 24.7 mg/dL (9.0-27.0); Calcium 8.7 mg/dL (8.7-10.3); Carbon Dioxide 21.9 mmol/L (21.6-31.8); Chloride 109 mmol/L (96-109); Glucose 95 mg/dL (70-110); Potassium 3.5 mmol/L (3.5-5.5); Sodium 143 mmol/L (135-145)
[2024-01-16 11:06] LABS: Creatine Kinase 297 U/L (26-186)
--- NOTE | 2024-01-16 11:38 | P.PN ---
Subjective Progress Note Date: 01/15/24 Patient was seen for follow-up. Patient is laying in the bed, offers no complaints. Objective - Vital Signs Vital signs: Vital Signs Temp 97.5 F L 01/15/24 15:00 Pulse 62 01/15/24 17:52 Resp 24 01/15/24 17:52 BP 120/72 01/15/24 15:00 Pulse Ox 98 01/15/24 15:00 FiO2 Intake & Output 01/15/24 01/15/24 01/16/24 06:59 18:59 06:59 Intake Total 118 Balance 118 Intake: Oral 118 Other: Voiding Method Toilet Toilet # Voids 1 3 - Exam Unchanged. Patient is pleasant laying in bed. - Labs CBC & Chem 7: 01/16/24 04:50 01/16/24 04:50 Labs: Abnormal Lab Results - Last 24 Hours (Table) 01/15/24 01/15/24 Range/Units 04:51 04:51 MPV 12.4 H (9.5-12.2) FL Chloride 112 H (96-109) mmol/L BUN 36.5 H (9.0-27.0) mg/dL Est GFR (CKD-EPI) 55 L (>=60) BUN/Creatinine Ratio 36.50 H (12.00-20.00) Ratio AST 49 H (13-35) U/L Creatine Kinase 632 H (26-186) U/L Total Protein 5.5 L (6.2-8.2) g/dL Albumin 3.5 L (3.8-4.9) g/dL Assessment and Plan Assessment: * Syncope and fall, likely due to vasovagal versus orthostasis. Reasons multifactorial as mentioned below * Acute UTI * Dehydration * Acute kidney injury, improving * Atrial fibrillation with rapid ventricular rate * Rhabdomyolysis due to fall * Memory disturbance, possible mild cognitive impairment. Plan: * Patient is being treated for acute UTI, currently on ceftriaxone 2 g every 24 hours. * Continue Eliquis 5 mg twice daily for atrial fibrillation * B12 482, folate 22.20, TSH 2.25. All normal. * Orthostatics were checked, negative. Supine blood pressure 132/80, sitting 135/82 and standing 120/72. * Carotid Doppler revealed less than 50% stenosis of carotid bifurcations. Antegrade flow in both vertebral arteries. * D echo revealed LVEF 55 to 60%. Mildly increased left ventricular wall thickness. Moderate to severely dilated left and right atrium. Mild AAS moderate MR, moderate TR. Cardiology consulted for abnormal 2D echo. * Patient probably may have underlying mild cognitive impairment. Recommend patient to follow-up in the neurology office for further evaluation of possi ble underlying cognitive impairment. * PT OT. * Neurologically clear for discharge, pending medical clearance.
--- NOTE | 2024-01-16 14:18 | P.PN ---
Subjective Progress Note Date: 01/16/24 HISTORY OF PRESENTING ILLNESS This is a pleasant 88-year-old with past medical history significant for atrial fibrillation, gout, dementia. Patient is a poor historian and much of the history is supplied by chart. Patient normally has family members checking in on her and had attempted to call her however not answer the phone and therefore a neighbor came and checked on patient and she was found to be lying on the floor. EMS arrived and patient was found to be in A. fib with some RVR. Apparently she did lose consciousness temporarily while in the EMS. She does have a history of urinary tract infections and has been having some dysuria and felt this would go away on its own. She usually is somewhat weak eating something to help support her. She believes she fell over unclear how. Initial EKG shows A. fib with RVR however heart rates have been controlled since. She denies any recent chest pain or pressure. Currently today she feels somewhat better. She has seen Dr. Gibson in the past. She denies any hematochezia or melena. White blood cell count 15.3, BUN 53, creatinine 1.1, total bilirubin 1.7, calcium 10.3, AST 67, TSH 2.2, leukocyte esterase large and 40 white blood cells in the urine. Creatinine kinase 649, 1141. 01/15 Patient is seen and examined. Echocardiogram reveals EF of 55 to 60%, mild increased left ventricular wall thickness, RVSP 40, moderate to severe dilated left and right atrium, mild AAS, mild AR, moderate MR, moderate TR. Blood pressure 151/79, heart rate 79, pulse ox 94% on room air. Repeat blood work reveals WBC 7, HGB11.6. Chemistry is pending. PHYSICAL EXAMINATION Vital signs reviewed. CONSTITUTIONAL: No apparent distress. HEENT: Head is normocephalic. Pupils are equal, round. Sclerae anicteric. Mucous membranes of the mouth are moist. No JVD. No carotid bruit. CHEST EXAMINATION: Lungs are clear to auscultation. No chest wall tenderness is noted on palpation or with deep breathing. HEART EXAMINATION: Regular rate and rhythm. S1, S2 heard. No murmurs, gallops or rub. ABDOMEN: Soft, nontender. Positive bowel sounds. EXTREMITIES: 2+ peripheral pulses, no lower extremity edema and no calf tenderness. NEUROLOGIC EXAMINATION: Patient is awake, alert poor historian ASSESSMENT Fall being found on the ground, unclear history of mechanical versus syncope Urinary tract infection A. fib with RVR improved Hypertension Chronic diastolic heart failure PLAN Main presentation is of fall and question syncope. Likely related to urinary tract infection and weakness. Assess fall risk however continue with anticoagulation for now. Continue to monitor on monitor and likely outpatient monitor. No significant angina-type symptoms. A. fib better controlled on home metoprolol. 30-day event monitor to be picked [facility] at [facility] office today. Patient is cleared for discharge and may follow-up in the office in 56 weeks. Nurse practitioner note has been reviewed, I agree with documented findings and plan of care. Patient was seen and examined. Objective - Vital Signs Vital signs: Vital Signs Temp 97.6 F 01/16/24 06:55 Pulse 79 01/16/24 06:55 Resp 16 01/16/24 06:55 BP 151/79 01/16/24 06:55 Pulse Ox 94 L 01/16/24 06:55 FiO2 Intake & Output 01/15/24 01/16/24 01/16/24 18:59 06:59 18:59 Intake Total 118 540 Balance 118 540 Intake: Oral 118 540 Other: Voiding Method Toilet Toilet # Voids 3 2 - Labs CBC & Chem 7: 01/16/24 04:50 01/16/24 04:50 Labs: Abnormal Lab Results - Last 24 Hours (Table) 01/15/24 Range/Units 04:51 Chloride 112 H (96-109) mmol/L BUN 36.5 H (9.0-27.0) mg/dL Est GFR (CKD-EPI) 55 L (>=60) BUN/Creatinine Ratio 36.50 H (12.00-20.00) Ratio AST 49 H (13-35) U/L Creatine Kinase 632 H (26-186) U/L Total Protein 5.5 L (6.2-8.2) g/dL Albumin 3.5 L (3.8-4.9) g/dL Microbiology - Last 24 Hours (Table) 01/14/24 16:54 Urine Culture - Final Urine,Clean Catch
--- NOTE | 2024-01-16 17:59 | P.PN ---
Subjective Chief complaint: Dehydration, abdominal pain, and extremity pain History of present illness; 88-year-old female with a past medical history of hypertension, hyperlipidemia, A-fib (on Eliquis) presents to the hospital after being found down on the ground by a neighbor. Patient reports she fell down next to her recliner but per the ED note EMS at the time found her and she was unable to explain how she got on the ground. Per the ED note according to the neighbors the patient has dementia. Unclear how long patient was down, patient does not remember much of the events that preceded her being on the ground. Patient denies headache, neck pain, numbness, weakness, chest pain, SOB, but does report to abdominal pain and extremity pain. Initial lab work from the ER was significant for WBC 15.3, hemoglobin 14.8, MCV 95.9, neutrophils 13.6, sodium 144, creatinine 1.16, glucose 169, calcium 10.3, T. bili 1.7, AST 67, ALT 30, creatinine kinase 649, and UA significant for large leukocyte esterase, urine WBC 40. EKG done in the ER showed heart rate of 117 bpm, no ST segment elevation or depression seen, no T-wave inversions seen. A-fib with RVR, left axis deviation, septal MN probably old. ER CXR: No acute cardiopulmonary disease/process. ER CT Head/cervical spine: No acute intracranial process, chronic small vessel ischemic disease, tiny left parietal scalp hematoma, no evidence of cervical spine fracture, and moderate multilevel degenerative disc disease. Subjective: 01/15/2024: Patient seen at bedside. No significant overnight events. Patient reports she feels slightly better than yesterday. CK decreased from yesterday. 01/15/2024: Patient seen at bedside and no significant overnight events. Patient's urine culture came back negative so we discontinue antibiotics. CK continues to decrease and creatinine/kidney function remains strong. Pertinent positives and negatives discussed above, a complete review of systems was preformed and all the other sytems were negative. Vitals Signs Reveiwed. General: non toxic, no distress, appears at stated age, normal weight Derm: no unusual rashes/lesions, warm Head: atraumatic, normocephalic, symmetric Eyes: EOMI, no lid lag, anicteric sclera, pupils equal round reactive to light ENT: Nose and ears atraumatic Neck: No cervical lymphadenopathy, trachea midline, supple Mouth: no lip lesion, mucus membranes moist Cardiovascular: S1S2 reg, no murmur, positive dorsalis pedis pulse bilateral, no edema Lungs: Decreased air entry bilaterally, no rhonchi, no rales, no accessory muscle use Abdominal: soft, nontender to palpation, no guarding Ext: muscle strength 5 out of 5 in all 4 extremities grossly, no gross muscle atrophy, no contractures, Neuro: CN II-XI grossly intact, no gross focal neuro deficits Psych: Alert, oriented, appropriate affect Data Reveiwed Today: Patient Labs: WBC 7.09, hemoglobin 11.6, MCV 95.7, creatinine 0.9, and creatinine kinase 297. Imaging: Carotid Doppler showed less than 50% stenosis at the carotid bifurcations. Anterograde flow in both vertebral arteries. Assessment & Plan: Acute: # UTI: Resolved Urine culture came back negative Discontinued antibiotics #Rhabdomyolysis: Mild CK has continued to downtrend Continue IV fluids, but monitor for worsening signs of dyspnea or shortness of breath in the setting of potential CHF exacerbation while giving fluids Continue to monitor #Unwitnessed fall: Patient does not recall how she ended up on the ground Neurology on consult, have cleared from a neurological standpoint for discharge Fall precautions Continue to monitor #A-fib with RVR: Continue home Eliquis 5 mg p.o. twice daily Cardiology on consult, have cleared for discharge from a Cardiologic standpoint and recommend 30-day event monitor to be picked up in the [facility] office. Echo showed EF of 55 to 60%, mildly increased left ventricular wall thickness Continue to monitor Chronic: #Systolic CHF: Continued home Lasix 20 mg p.o. daily #Hypertension: Continue home Lasix 20 mg p.o. daily and metoprolol 50 mg p.o. twice daily, and hydralazine 25 mg p.o. twice daily #Hyperlipidemia: Continue home Lipitor 10 mg p.o. at bedtime F: NS 75 cc/h E: None N: Regular diet DVT ppx: Eliquis 5 mg p.o. twice daily GI ppx: Protonix 40 mg p.o. AC breakfast Dispo: Likely discharge tomorrow when bed opens up at [facility]. Brice Meraz MD PGY-1 FM Code Status: No code Objective - Vital Signs Vital signs: Vital Signs Temp 97.4 F L 01/16/24 13:53 Pulse 56 L 01/16/24 15:56 Resp 18 01/16/24 13:53 BP 135/81 01/16/24 15:56 Pulse Ox 99 01/16/24 13:53 FiO2 Intake & Output 01/15/24 01/16/24 01/16/24 18:59 06:59 18:59 Intake Total 118 540 400 Balance 118 540 400 Intake: Oral 118 540 400 Other: Voiding Method Toilet Toilet Toilet # Voids 3 2 5 - Labs CBC & Chem 7: 01/16/24 04:50 01/16/24 04:50 Labs: Abnormal Lab Results - Last 24 Hours (Table) 01/16/24 01/16/24 Range/Units 04:50 04:50 RBC 3.72 L (4.10-5.20) X 10*6/uL Hgb 11.6 L (12.0-15.0) g/dL Hct 35.6 L (37.2-46.3) % MPV 12.3 H (9.5-12.2) FL Anion Gap 12.10 H (4.00-12.00) mmol/L BUN/Creatinine Ratio 27.44 H (12.00-20.00) Ratio Creatine Kinase 297 H (26-186) U/L Microbiology - Last 24 Hours (Table) 01/14/24 16:54 Urine Culture - Final Urine,Clean Catch
[2024-01-17 07:40] VITALS: RESP 17
[2024-01-17 07:42] VITALS: BP 141/85; PULSE 89; TEMP 97.4
[2024-01-17] MEDS ORDERED: ZINC OXIDE PASTE (Z-GUARD) 1 APPLIC TOPICAL PRN (13:32)
--- NOTE | 2024-01-17 13:48 | P.DS ---
Providers Date of admission: 01/14/24 13:44 Attending physician: Josr Mello Consults: 01/14/24 11:08 Consult Physician Routine Consulting Provider: Ashley Hoskins Consult Reason/Comments: change in mental status Do you want consulting provider notified?: Yes 01/14/24 11:13 Consult Physician Routine Consulting Provider: Raffy Rosas Consult Reason/Comments: chf Do you want consulting provider notified?: Yes [facility] care [facility]: [facility] Course: Discharge Diagnosis: UTI Rhabdomyolysis Unwitnessed fall A-fib with RVR Systolic CHF Hypertension Hyperlipidemia Hospital Course: Chief complaint: Dehydration, abdominal pain, and extremity pain History of present illness; 88-year-old female with a past medical history of hypertension, hyperlipidemia, A-fib (on Eliquis) presents to the hospital after being found down on the ground by a neighbor. Patient reports she fell down next to her recliner but per the ED note EMS at the time found her and she was unable to explain how she got on the ground. Per the ED note according to the neighbors the patient has dementia. Unclear how long patient was down, patient does not remember much of the events that preceded her being on the ground. Patient denies headache, neck pain, numbness, weakness, chest pain, SOB, but does report to abdominal pain and extremity pain. Initial lab work from the ER was significant for WBC 15.3, hemoglobin 14.8, MCV 95.9, neutrophils 13.6, sodium 144, creatinine 1.16, glucose 169, calcium 10.3, T. bili 1.7, AST 67, ALT 30, creatinine kinase 649, and UA significant for large leukocyte esterase, urine WBC 40. EKG done in the ER showed heart rate of 117 bpm, no ST segment elevation or depression seen, no T-wave inversions seen. A-fib with RVR, left axis deviation, septal NE probably old. ER CXR: No acute cardiopulmonary disease/process. ER CT Head/cervical spine: No acute intracranial process, chronic small vessel ischemic disease, tiny left parietal scalp hematoma, no evidence of cervical spine fracture, and moderate multilevel degenerative disc disease. Subjective: 01/15/2024: Patient seen at bedside. No significant overnight events. Patient reports she feels slightly better than yesterday. CK decreased from yesterday. 01/15/2024: Patient seen at bedside and no significant overnight events. Patient's urine culture came back negative so we discontinue antibiotics. CK continues to decrease and creatinine/kidney function remains strong. While admitted to the hospital the patient was seen by cardiology who got an echocardiogram which showed EF 55 to 60%, mildly increased left ventricular wall thickness, RVSP 40, moderate to severely dilated left and right atrium, mild aortic stenosis, mild aortic regurg, moderate mitral regurg, moderate tricuspid regurg. Patient also received a carotid Doppler study which showed on the right less than 50% stenosis of the carotid bifurcation, and less than 50% stenosis of the carotid bifurcation on the left. Patient was cleared from a cardiology standpoint with the request the patient wears a 30-day event monitor upon discharge. Patient was also seen by neurology who tested orthostatics, B12, folate, and TSH and were happy with the results so they cleared her from a neurological standpoint. Patient was also found to have an acute UTI while admitted she received Rocephin 2 g IVPB daily, never complained of any urinary symptoms, initially had a white count of 15.3 on admission which decreased to 9.2 on the second day of admission and remained within normal limits throughout her stay, as well as never had a fever while admitted so the Rocephin was eventually discontinued as it appeared the patient had cleared the UTI. Patient is medically and hemodynamically stable for discharge to [facility] for acute rehab. 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 Vital signs reveiwed and stable: General: non toxic, no distress, appears at stated age, normal weight Derm: no unusual rashes/lesions, warm Head: atraumatic, normocephalic, symmetric Eyes: EOMI, no lid lag, anicteric sclera, pupils equal round reactive to light ENT: Nose and ears atraumatic Neck: No cervical lymphadenopathy, trachea midline, supple Mouth: no lip lesion, mucus membranes moist Cardiovascular: S1S2 reg, no murmur, positive dorsalis pedis pulse bilateral, no edema Lungs: Decreased air entry bilaterally, no rhonchi, no rales, no accessory muscle use Abdominal: soft, nontender to palpation, no guarding Ext: muscle strength 5 out of 5 in all 4 extremities grossly, no gross muscle atrophy, no contractures, Neuro: CN II-XI grossly intact, no gross focal neuro deficits Psych: Alert, oriented, appropriate affect A total of greater than 30 minutes were spent preparing this complex discarge summary. Patient was discharged on 01/17/2024, 13: 11. Plan - Discharge Summary New Discharge Prescriptions: Continue allopurinoL [Zyloprim] 100 mg PO DAILY Simvastatin [Zocor] 20 mg PO HS Furosemide [Lasix] 20 mg PO DAILY Apixaban [Eliquis] 5 mg PO BID Metoprolol Tartrate [Lopressor] 50 mg PO BID Aspirin EC [Ecotrin Low Dose] 81 mg PO DAILY hydrALAZINE HCL [Apresoline] 25 mg PO BID Discharge Medication List Apixaban [Eliquis] 5 mg PO BID 05/16/21 [History] Aspirin EC [Ecotrin Low Dose] 81 mg PO DAILY 05/16/21 [History] Furosemide [Lasix] 20 mg PO DAILY 05/16/21 [History] Metoprolol Tartrate [Lopressor] 50 mg PO BID 05/16/21 [History] Simvastatin [Zocor] 20 mg PO HS 05/16/21 [History] allopurinoL [Zyloprim] 100 mg PO DAILY 05/16/21 [History] hydrALAZINE HCL [Apresoline] 25 mg PO BID 01/13/24 [History] Follow up Appointment(s)/Referral(s): [facility] [Provider Group] - 6 Weeks Conner Lujan MD [Primary Care Provider] - 1-2 days Patient Instructions/Handouts: Dehydration (DC) Activity/Diet/Wound Care/Special Instructions: 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
--- NOTE | 2024-02-02 15:28 | CDI ---
Documentation Clarification Form Date: 02/02/2024 03:08:25 PM From: Shraddha Sequeira RN, CCDS Phone: [phone] Admit Date: 01/14/2024 01:44:00 PM Patient Name: Sandra Pro Visit Number: [id number] Discharge Date: 01/17/2024 02:48:00 PM ATTENTION: The Clinical Documentation Specialists (CDI) and [facility] Coding Staff appreciate your assistance in clarifying documentation. Please respond to the clarification below the line at the bottom and electronically sign. The CDI & [facility] Coding staff will review the response and follow-up if needed. Please note: Queries are made part of the Legal Health Record. If you have any questions, please contact the author of this message via ITS. Doctor Marielos Interiano The patient had the documented symptom of Altered Mental Status in the progress notes. Additional clarification regarding the etiology/cause of this symptom is requested. History/Risk Factors: HTN, HLD, A fib on Eliquis. Presents after being found down on the ground. Admitted with UTI, unwitnessed fall and rhabdomyolysis. Clinical Indicators: ED: "Alert and oriented x2. Fall. AMS." Neurology: "came to the hospital by ambulance for a fall and altered mental status." 01/14 IM: "unwitnessed fall: Patient does not recall how she ended up on the ground. Alert, oriented, appropriate affect. Dehydration, abdominal pain, and extremity pain." Labs: 01/12 UA: large leukocyte esterase, 40 WBC, rare bacteria, hyaline casts, urine mucus Treatment: IV Rocephin 2gm Q24H 01/13-01/15; 1L 0.9 NS IV bolus x1 on 01/12 then 75mL/hr 01/13-01/16 Please clarify the etiology of the symptom of Altered Mental Status: [ ] Metabolic Encephalopathy due to UTI and dehydration [ x] Other condition (please specify)___toxic encephalopathy secondary to UTI [ ] Unable to determine MTDD
== END 2024-01-17 14:48 | DRG 564 ==
LOC: EC 12:16 → 6NMEDSUR 17:36 → OBSVTOIN 01-14 13:44
PROVIDERS: ADMIT Hospitalist; ATTEND Hospitalist
DX: T79.6XXA Traumatic ischemia of muscle, initial encounter (principal); G92.8 Other toxic encephalopathy; I48.20 Chronic atrial fibrillation, unspecified; N39.0 Urinary tract infection, site not specified; N17.9 Acute kidney failure, unspecified; I50.42 Chronic combined systolic (congestive) and diastolic (congestive) heart failure; E86.0 Dehydration; I11.0 Hypertensive heart disease with heart failure; E78.5 Hyperlipidemia, unspecified; W18.30XA Fall on same level, unspecified, initial encounter; Z66 Do not resuscitate; I08.1 Rheumatic disorders of both mitral and tricuspid valves; M10.9 Gout, unspecified; Z79.01 Long term (current) use of anticoagulants; Z79.899 Other long term (current) drug therapy; I25.2 Old myocardial infarction; Z79.82 Long term (current) use of aspirin; Z87.440 Personal history of urinary (tract) infections
CPT/HCPCS: 12002; 36415; 70450; 71046; 72125; 80048; 80053; 81001; 82550; 82607; 82746; 83735; 84443; 85025; 85027; 87086; 93005; 93306; 93880; 99283; 99285

== ENCOUNTER 2024-02-18 17:07 | Inpatient (IN) | payer MEDICARE, BC, OTHER ==
--- NOTE | 2024-02-18 17:46 | ED ---
General Adult HPI - General Chief complaint: Altered Mental Status Stated complaint: AMS Time Seen by Provider: 02/18/24 17:15 Source: patient, EMS, RN notes reviewed, old records reviewed Mode of arrival: EMS Limitations: altered mental status - History of Present Illness Initial comments: 88-year-old female from fdc for evaluation of confusion, hallucination and increased weakness. History from the patient is noncontributory. Family is apparently on their way to the emergency department at the time my initial evaluation. Patient had apparently been started on tramadol and Xanax last dose was given at 8 AM this morning. No further history available. - Related Data Home Medications Medication Instructions Recorded Confirmed Apixaban [Eliquis] 5 mg PO BID@0800,199905/16/21 02/18/24 Aspirin EC [Ecotrin Low Dose] 81 mg PO DAILY@0800 05/16/21 02/18/24 Furosemide [Lasix] 20 mg PO DAILY@0800 05/16/21 02/18/24 Metoprolol Tartrate [Lopressor] 50 mg PO BID@08,199905/16/21 02/18/24 Simvastatin [Zocor] 20 mg PO HS@199905/16/21 02/18/24 allopurinoL [Zyloprim] 100 mg PO DAILY@0800 05/16/21 02/18/24 hydrALAZINE HCL [Apresoline] 25 mg PO BID@0800,199901/13/24 02/18/24 ALPRAZolam [Xanax] 0.25 mg PO TID PRN 02/18/24 02/18/24 Acetaminophen [Tylenol] 650 mg PO Q4H PRN MDD 4000mg 02/18/24 02/18/24 Caldesene Powder 1 applic TOPICAL TID 02/18/24 02/18/24 Carbamide Peroxide [Debrox Otic] 10 drops BOTH EARS WE@79902/18/24 02/18/24 Ciprofloxacin HCl [Cipro] 500 mg PO BID@0802/18/24 02/18/24 Ensure 1 can PO BID@08,199902/18/24 02/18/24 Magnesium Hydroxide [Milk of 2,400 mg PO DAILY PRN 02/18/24 02/18/24 Magnesia] Melatonin 3 mg PO HS PRN 02/18/24 02/18/24 Menthol-Zinc Oxide Oint 1 applic TOPICAL TID 02/18/24 02/18/24 [Calmoseptine Ointment] Ocusoft Lid Pad Scrub 1 pad BOTH EYES DAILY@0800 02/18/24 02/18/24 Refresh Classic Pf 1.4-0.6% 2 drops BOTH EYES Q12H PRN 02/18/24 02/18/24 Sennosides [Senokot] 8.6 mg PO BID@0800,199902/18/24 02/18/24 bisacodyL [Dulcolax] 10 mg RECTAL DAILY PRN 02/18/24 02/18/24 traMADol HCL 25 mg PO Q8H PRN 02/18/24 02/18/24 Allergies Allergy/AdvReac Type Severity Reaction Status Date / Time No Known Allergies Allergy Verified 02/18/24 17:19 Review of Systems ROS Statement: Those systems with pertinent positive or pertinent negative responses have been documented in the HPI. ROS Other: All systems not noted in ROS Statement are negative. Past Medical History Past Medical History: Atrial Fibrillation, Heart Failure, Hypertension Additional Past Medical History / Comment(s): Gout approx 20 years ago History of Any Multi-Drug Resistant Organisms: None Reported Past Surgical History: No Surgical Hx Reported Past Anesthesia/Blood Transfusion Reactions: No Reported Reaction Past Psychological History: Anxiety Smoking Status: Never smoker Past Alcohol Use History: None Reported Past Drug Use History: None Reported General Exam Limitations: altered mental status General appearance: alert, anxious Head exam: Present: atraumatic, normocephalic Eye exam: Present: normal appearance, PERRL ENT exam: Present: mucous membranes dry Neck exam: Present: normal inspection. Absent: tenderness, meningismus Respiratory exam: Present: normal lung sounds bilaterally. Absent: respiratory distress, wheezes Cardiovascular Exam: Present: regular rate, irregular rhythm GI/Abdominal exam: Present: soft. Absent: distended, tenderness, guarding Neurological exam: Present: alert. Absent: oriented X3 Psychiatric exam: Present: agitated (Patient appears to be hallucinating) Skin exam: Present: warm, dry, intact Course Vital Signs 02/18/24 17:14 Temperature 97.4 F L Pulse Rate 74 Respiratory 20 Rate Blood Pressure 150/78 O2 Sat by Pulse 96 Oximetry Medical Decision Making - Medical Decision Making Was pt. sent in by a medical professional or institution ([facility], [facility], urgent care, hospital, or fdc...) When possible be specific @ -No Did you speak to anyone other than the patient for history (EMS, parent, family, police, friend...)? What history was obtained from this source @ -Patient's daughter Did you review nursing and triage notes (agree or disagree)? Why? @ -I reviewed and agree with nursing and triage notes Were old charts reviewed (outside hosp., previous admission, EMS record, old EKG, old radiological studies, urgent care reports/EKG's, fdc records)? Report findings @ -No old charts were reviewed Differential Altered Mental Status: Hypoglycemia, DKA, hypercapnia, ETOH, overdose, CO poisoning, trauma, myxedema coma, HTN encephalopathy, infection, encephalitis, psychosis, intercranial hemorrhage, hepatic encephalopathy, meningitis, CVA, this is not meant to be an all-inclusive list EKG interpreted by me (3pts min.). @ -[EKG: Atrial fibrillation rate of 89, QRS duration 85, QTc [address] segment changes X-rays interpreted by me (1pt min.). @ -Chest x-ray, mild CHF CT interpreted by me (1pt min.). @CT brain negative for intracranial hemorrhage or mass effect U/S interpreted by me (1pt. min.). @ -None done What testing was considered but not performed or refused? (CT, X-rays, U/S, labs)? Why? @ -None What meds were considered but not given or refused? Why? @ -None Did you discuss the management of the patient with other professionals (professionals i.e. [facility], [facility], lab, RT, psych nurse, high school social science teacher, engineering faculty member, teacher, commercial loan collection officer, case specialist)? Give summary @ -Dr. Bianchi will admit Was smoking cessation discussed for >3mins.? @ -No Was critical care preformed (if so, how long)? @ -No Were there social determinants of health that impacted care today? How? (Homelessness, low income, unemployed, alcoholism, drug addiction, transportation, low edu. Level, literacy, decrease access to med. care, fpc, rehab)? @ -No Was there de-escalation of care discussed even if they declined (Discuss DNR or withdrawal of care, Hospice)? DNR status @ -DNR What co-morbidities impacted this encounter? (DM, HTN, Smoking, COPD, CAD, Cancer, CVA, ARF, Chemo, Hep., AIDS, mental health diagnosis, sleep apnea, morbid obesity)? @ -Dementia Was patient admitted / discharged? Hospital course, mention meds given and route, prescriptions, significant lab abnormalities, going to OR and other pertinent info. @ -88-year-old female with steady decline over the past 1 month, worsening agitation and confusion over the past 3 days. Patient's daughter is able to giv e a detailed history. She was recently treated for UTI. Currently there is no signs of UTI. Normal CBC, normal CMP, negative head CT. Patient will be trialed on Seroquel and will be admitted. She may require higher level of care than the home where she currently resides. Undiagnosed new problem with uncertain prognosis? @ -No Drug Therapy requiring intensive monitoring for toxicity (Heparin, Nitro, Insulin, Cardizem)? @ -No Were any procedures done? @ -No Diagnosis/symptom? @Altered mental status, worsening agitation and hallucination Acute, or Chronic, or Acute on Chronic? @Acute Uncomplicated (without systemic symptoms) or Complicated (systemic symptoms)? @ -Default Side effects of treatment? @ -No Exacerbation, Progression, or Severe Exacerbation? @ -No Poses a threat to life or bodily function? How? (Chest pain, USA, ND, pneumonia, PE, COPD, DKA, ARF, appy, cholecystitis, CVA, Diverticulitis, Homicidal, Suicidal, threat to staff... and all critical care pts) @Yes, delirium in the elderly - Lab Data Result diagrams: 02/18/24 17:47 02/18/24 17:47 Lab Results 02/18/24 02/18/24 02/18/24 Range/Units 17:47 17:47 17:47 WBC 7.2 (3.8-10.6) k/uL RBC 4.14 (3.80-5.40) m/uL Hgb 12.8 (11.4-16.0) gm/dL Hct 38.9 (34.0-46.0) % MCV 93.9 (80.0-100.0) fL MCH 30.8 (25.0-35.0) pg MCHC 32.9 (31.0-37.0) g/dL RDW 13.8 (11.5-15.5) % Plt Count 228 (150-450) k/uL MPV 8.7 Neutrophils % 63 % Lymphocytes % 23 % Monocytes % 8 % Eosinophils % 3 % Basophils % 1 % Neutrophils # 4.6 (1.3-7.7) k/uL Lymphocytes # 1.6 (1.0-4.8) k/uL Monocytes # 0.6 (0-1.0) k/uL Eosinophils # 0.2 (0-0.7) k/uL Basophils # 0.0 (0-0.2) k/uL PT 11.7 (10.0-12.5) sec INR 1.1 (<1.2) APTT 27.2 (22.0-30.0) sec Sodium 138 (137-145) mmol/L Potassium 3.9 (3.5-5.1) mmol/L Chloride 107 (98-107) mmol/L Carbon Dioxide 25 (22-30) mmol/L Anion Gap 6 mmol/L BUN 37 H (7-17) mg/dL Creatinine 1.40 H (0.52-1.04) mg/dL Est GFR (CKD-EPI)AfAm 39 (>60 ml/min/1.73 sqM) Est GFR (CKD-EPI)NonAf 34 (>60 ml/min/1.73 sqM) Glucose 92 (74-99) mg/dL Calcium 9.8 (8.4-10.2) mg/dL Total Bilirubin 0.8 (0.2-1.3) mg/dL AST 35 (14-36) U/L ALT 22 (4-34) U/L Alkaline Phosphatase 82 (38-126) U/L Total Protein 6.5 (6.3-8.2) g/dL Albumin 3.9 (3.5-5.0) g/dL Urine Color Urine Appearance (Clear) Urine pH (5.0-8.0) Ur Specific [place] (1.001-1.035) Urine Protein (Negative) Urine Glucose (UA) (Negative) Urine Ketones (Negative) Urine Blood (Negative) Urine Nitrite (Negative) Urine Bilirubin (Negative) Urine Urobilinogen (<2.0) mg/dL Ur Leukocyte Esterase (Negative) 11/20/24 Range/Units 18:53 WBC (3.8-10.6) k/uL RBC (3.80-5.40) m/uL Hgb (11.4-16.0) gm/dL Hct (34.0-46.0) % MCV (80.0-100.0) fL MCH (25.0-35.0) pg MCHC (31.0-37.0) g/dL RDW (11.5-15.5) % Plt Count (150-450) k/uL MPV Neutrophils % % Lymphocytes % % Monocytes % % Eosinophils % % Basophils % % Neutrophils # (1.3-7.7) k/uL Lymphocytes # (1.0-4.8) k/uL Monocytes # (0-1.0) k/uL Eosinophils # (0-0.7) k/uL Basophils # (0-0.2) k/uL PT (10.0-12.5) sec INR (<1.2) APTT (22.0-30.0) sec Sodium (137-145) mmol/L Potassium (3.5-5.1) mmol/L Chloride (98-107) mmol/L Carbon Dioxide (22-30) mmol/L Anion Gap mmol/L BUN (7-17) mg/dL Creatinine (0.52-1.04) mg/dL Est GFR (CKD-EPI)AfAm (>60 ml/min/1.73 sqM) Est GFR (CKD-EPI)NonAf (>60 ml/min/1.73 sqM) Glucose (74-99) mg/dL Calcium (8.4-10.2) mg/dL Total Bilirubin (0.2-1.3) mg/dL AST (14-36) U/L ALT (4-34) U/L Alkaline Phosphatase (38-126) U/L Total Protein (6.3-8.2) g/dL Albumin (3.5-5.0) g/dL Urine Color Colorless Urine Appearance Clear (Clear) Urine pH 6.0 (5.0-8.0) Ur Specific [place] 1.012 (1.001-1.035) Urine Protein Negative (Negative) Urine Glucose (UA) Negative (Negative) Urine Ketones Negative (Negative) Urine Blood Negative (Negative) Urine Nitrite Negative (Negative) Urine Bilirubin Negative (Negative) Urine Urobilinogen <2.0 (<2.0) mg/dL Ur Leukocyte Esterase Negative (Negative) Disposition Clinical Impression: Altered mental status, Dementia, Delirium Disposition: ADMITTED IP TO THIS [facility] Condition: Stable Is patient prescribed a controlled substance at d/c from ED?: No Referrals: Laura Terrazas MD [Primary Care Provider] - 1-2 days Time of Disposition: 20:26
[2024-02-18 17:59] LABS: Basophils % (A) 1 %; Eosinophils # (A) 0.2 k/uL (0-0.7); Eosinophils % (A) 3 %; HCT 38.9 % (34.0-46.0); HGB 12.8 gm/dL (11.4-16.0); Lymphocytes # (A) 1.6 k/uL (1.0-4.8); Lymphocytes % (A) 23 %; MCH 30.8 pg (25.0-35.0); MCHC 32.9 g/dL (31.0-37.0); MCV 93.9 fL (80.0-100.0); Mean Platelet Volume 8.7; Monocytes # (A) 0.6 k/uL (0-1.0); Monocytes % (A) 8 %; Neutrophils # (A) 4.6 k/uL (1.3-7.7); Neutrophils % (A) 63 %; Platelet Count 228 k/uL (150-450); RBC 4.14 m/uL (3.80-5.40); RDW 13.8 % (11.5-15.5); WBC 7.2 k/uL (3.8-10.6)
[2024-02-18 18:07] LABS: ALT 22 U/L (4-34); AST 35 U/L (14-36); African American GFR (CKD) 39 (>60 ml/min/1.73 sqM); Albumin 3.9 g/dL (3.5-5.0); Alkaline Phosphatase 82 U/L (38-126); Anion Gap 6 mmol/L; Blood Urea Nitrogen 37 mg/dL (7-17); Calcium 9.8 mg/dL (8.4-10.2); Carbon Dioxide 25 mmol/L (22-30); Chloride 107 mmol/L (98-107); Glucose 92 mg/dL (74-99); Non-African American GFR(CKD) 34 (>60 ml/min/1.73 sqM); Potassium 3.9 mmol/L (3.5-5.1); Sodium 138 mmol/L (137-145); Total Bilirubin 0.8 mg/dL (0.2-1.3); Total Protein 6.5 g/dL (6.3-8.2)
[2024-02-18 18:10] LABS: INR 1.1 (<1.2); Partial Thromboplastin Time 27.2 sec (22.0-30.0); Prothrombin Time 11.7 sec (10.0-12.5)
[2024-02-18] MEDS: SODIUM CHLORIDE 0.9% 500 ML 500 ML IV ONE (18:16)
[2024-02-18] MEDS: LORazepam 2 MG/ML INJ IV STA (18:16)
--- NOTE | 2024-02-18 18:50 | XR ---
EXAMINATION TYPE: XR chest 1V portable DATE OF EXAM: 02/18/2024 6:41 PM COMPARISON: Prior chest radiograph dated 01/13/2024. CLINICAL INDICATION: Female, 88 years old with history of altered mental status; [facility] TECHNIQUE: XR chest 1V portable Frontal view of the chest. FINDINGS: Cardiomegaly, stable from prior study. Slight prominence of the interstitial markings bilaterally. Small partially layering left pleural effusion, new from prior study. No sizable right-sided pleural effusion. No acute focal consolidation. Next line pneumothorax. IMPRESSION: Cardiomegaly, likely pulmonary vascular congestion and small left pleural effusion. [facility], , 02/18/2024 6:47 PM
--- NOTE | 2024-02-18 18:58 | CT ---
EXAMINATION TYPE: CT brain wo con DATE OF EXAM: 02/18/2024 6:39 PM COMPARISON: Previous study dated 01/13/2024.. CLINICAL INDICATION: Female, 88 years old with history of Altered mental status, ams TECHNIQUE: Brain: Axial CT images of the brain were obtained with coronal and sagittal reformats created and rev iewed. Contrast used: None. Oral contrast used: None. CT DLP: 1096.4 mGycm, Automated exposure control for dose reduction was used. FINDINGS: Brain: No acute cranial hemorrhage, significant midline shift or evidence of acute mass effect. Ventricles a nd sulci mildly prominent compatible with mild generalized cerebral volume loss. Questionable/apparen t gas foci within the right frontal extra-axial space (axial series image 30) is essentially unchange d from prior study and is of unknown clinical significance, recommend clinical correlation. Basal cis terns appear patent. Patchy periventricular and subcortical white matter hypoattenuation likely refle ct chronic microvascular ischemic disease. No depressed calvarial fracture. Paulson-white matter differe ntiation appears generally preserved. No large scalp hematoma. Paranasal sinuses and mastoid air cell s are grossly patent. Previous bilateral cataract lens extraction noted. IMPRESSION: No acute intracranial abnormality. [facility], , 02/18/2024 6:55 PM
[2024-02-18 19:23] LABS: Appearance,Urine Clear (Clear); Bilirubin,Urine Negative (Negative); Blood,Urine Negative (Negative); Color,Urine Colorless; Glucose,Urine (UA) Negative (Negative); Ketones,Urine Negative (Negative); Leukocyte Esterase,Urine Negative (Negative); Nitrite,Urine Negative (Negative); Protein,Urine Negative (Negative); Specific Gravity,Urine 1.012 (1.001-1.035); Urobilinogen,Urine <2.0 mg/dL (<2.0)
[2024-02-18] MEDS ORDERED: NALOXONE 0.4 MG/ML 1 ML VIAL IV PRN (20:23)
[2024-02-18] MEDS: QUEtiapine 25 MG TAB PO SCH (21:20)
[2024-02-19] MEDS ORDERED: MELATONIN 3 MG TABLET PO PRN (07:56)
[2024-02-19] MEDS ORDERED: ALPRAZolam 0.25 MG TAB PO PRN (07:56)
[2024-02-19] MEDS ORDERED: bisacodyL 10 MG SUPP RECTAL PRN (07:56)
[2024-02-19] MEDS ORDERED: MAGNESIUM HYDROXIDE 2,400 MG/30 ML CUP PO PRN (07:56)
[2024-02-19] MEDS ORDERED: ARTIFICIAL TEARS-HYPROMELLOSE DROPS 15 ML BTL BOTH EYES PRN (07:56)
[2024-02-19] MEDS: APIXABAN 5 MG TAB PO SCH (08:43)
[2024-02-19] MEDS: hydrALAZINE HCL 25 MG TAB PO SCH (08:43)
[2024-02-19] MEDS: ASPIRIN 81 MG PO SCH (08:43)
[2024-02-19] MEDS: FUROSEMIDE 20 MG TAB PO SCH (08:44)
[2024-02-19] MEDS: allopurinoL 100 MG TAB PO SCH (08:44)
[2024-02-19] MEDS: SENNOSIDES 8.6 MG TAB PO SCH (08:44)
[2024-02-19] MEDS ORDERED: NON FORMULARY DRUG (Caldesene Powder 1 APPLIC) TOPICAL SCH (09:00)
[2024-02-19] MEDS: [UNRECOGNIZED DRUG - OTHER] BOTH EYES SCH (09:35)
[2024-02-19] MEDS: NON FORMULARY DRUG (Ensure 1 CAN Ml) PO SCH (09:35)
[2024-02-19] MEDS: HALOPERIDOL LACTATE 5 MG/ML 1 ML VIAL IM STA (11:03)
[2024-02-19] MEDS ORDERED: OLANZapine ODT 5 MG TAB PO PRN (14:08)
--- NOTE | 2024-02-19 14:18 | P.CN ---
Psychiatric Consult - . Consult date: 02/19/24 Consult:: 02/19/24 14:10 IDENTIFYING DATA: This patient is a 88-year-old female currently living at an assisted living facility REASON FOR REFERRAL: Psychiatry was consulted for confusion and agitation HISTORY OF PRESENT ILLNESS: The patient presented to the hospital with altered mental status. Patient currently stays at [facility] and has had increasing confusion, hallucinations and weakness. Notably recently was treated for a UTI. CT head showed no acute changes. Chest x-ray revealed cardiomegaly. Urinalysis was negative for UTI. EKG showed A-fib, QTc within normal limits. Attempted to interview patient in her room however had not received as needed Haldol and was sedated. Daughter and her were at bedside and provided all of the history. Daughter states patient was doing well, living independently up until January 16 when she fell at home and had to be hospitalized. She states patient was discharged to [facility] however was agitated there so she was transferred to [facility] and was doing well for a few weeks however began exhibiting agitation as well. Daughter states patient 2 days ago was started on Xanax 0.25 mg and tramadol as well and received Ativan overnight. Daughter states that patient has had some memory issues however prior to December was independent with her ADLs. She denied any past psychiatric history and described patient as being resilient, not crying after losing 2 s pouses or 2 grandkids. PAST PSYCHIATRIC HISTORY: Patient has no past psych history. Patient has never been on any psychiatric medications. Patient has never been patient. Patient never had any psychiatric outpatient follow-up. Patient never had any history of suicide attempts in the past. PAST MEDICAL HISTORY: A-fib, hypertension. ALLERGIES: as per EMR. CHEMICAL DEPENDENCY HISTORY: as per HPI. FAMILY PSYCHIATRIC/SUBSTANCE USE HISTORY: Denies SOCIAL HISTORY: Patient was recently living independently however has been staying at [facility] assisted living. Patient has 3 daughters. Patient is . MENTAL STATUS EXAM: General Appearance: Patient appears to be stated age is somnolent. Patient appears to have fair hygiene and grooming wearing hospital gown. Behavior: Patient is calmly lying in bed, in a deep sleep. Speech: Unable to assess Mood/Affect: Labile affect as patient reportedly has been pulling at lines and aggressive with staff Suicidality/Homicidality: Able to assess Perceptions: Patient reportedly has had hallucinations Though content/process: Able to assess Judgment and insight: Poor IMPRESSIONS: Delirium, likely prolonged PLAN: -At this time patient DOES NOT meet criteria for inpatient psychiatric admission. -Delirium precautions recommended with patient including - avoiding use of narcotics and [employer] sedatives, limit anticholinergic medications when possible, frequent re-orientation, minimize use of restraints, open window shades during the day and close them at night -Would recommend the following medication changes/additions: Will discontinue Xanax as this was recently added and will worsen confusion. Will increase Seroquel to 25 mg daily and 50 mg at bedtime and add Zyprexa p.o./IM 5 mg twice daily as needed for acute safety concerns -Communicated plan to patient's nurse -Will continue to follow along -Please contact with any questions. 02/19/24 14:15
--- NOTE | 2024-02-19 16:29 | P.CNNES ---
History of Present Illness Consult date: 02/19/24 Requesting physician: Kumar Bianchi Reason for Consult: mental status changes History of Present Illness: This is an 88-year-old woman who presents from nursing facility for evaluation of confusion and hallucination and increased weakness. History is obtained from medical record. According to the emergency department physician's note patient was apparently started on tramadol and Xanax and last dose was given was 8 AM yesterday morning seems to the patient has been declining over the past 1 month with worsening agitation confusion over the past 3 days and she was recently treated for urinary tract infection. According to the nursing staff the patient was very agitated restless as a result she was given Haldol 2 mg IM once in the morning and upon seeing her she was severely sleepy. She also received Ativan 1 mg once yesterday in the ED. My colleague, Dr. Hoskins seen the patient her recent hospital visit on 01/16/2024 and he stated the patient syncope and fall was likely due to vasovagal versus orthostatic and she had acute urinary tract infection as well as acute kidney injury. Refer to his note for further details. Some of the workup during this hospital visit consisted of: Reviewed the lab workup and that her creatinine and BUN is mildly elevated Urinalysis is unremarkable for any acute tract infection CT head is reported as no acute intracranial abnormality. I personally reviewed the CT and agree with the report. Review of Systems As per HPI. Past Medical History Past Medical History: Atrial Fibrillation, Heart Failure, Hypertension Additional Past Medical History / Comment(s): Gout approx 20 years ago History of Any Multi-Drug Resistant Organisms: None Reported Past Surgical History: No Surgical Hx Reported Past Anesthesia/Blood Transfusion Reactions: No Reported Reaction Past Psychological History: Anxiety Smoking Status: Never smoker Past Alcohol Use History: None Reported Past Drug Use History: None Reported Medications and Allergies Home Medications Medication Instructions Recorded Confirmed Type Apixaban [Eliquis] 5 mg PO BID@0805/16/21 02/18/24 History Aspirin EC [Ecotrin Low Dose] 81 mg PO DAILY@0800 05/16/21 02/18/24 History Furosemide [Lasix] 20 mg PO DAILY@0800 05/16/21 02/18/24 History Metoprolol Tartrate [Lopressor] 50 mg PO BID@05/16/21 02/18/24 History Simvastatin [Zocor] 20 mg PO HS@199905/16/21 02/18/24 History allopurinoL [Zyloprim] 100 mg PO DAILY@0805/16/21 02/18/24 History hydrALAZINE HCL [Apresoline] 25 mg PO BID@799,199901/13/24 02/18/24 History ALPRAZolam [Xanax] 0.25 mg PO TID PRN 02/18/24 02/18/24 History Acetaminophen [Tylenol] 650 mg PO Q4H PRN MDD 4000mg 02/18/24 02/18/24 History Caldesene Powder 1 applic TOPICAL TID 02/18/24 02/18/24 History Carbamide Peroxide [Debrox Otic] 10 drops BOTH EARS WE@0802/18/24 02/18/24 History Ciprofloxacin HCl [Cipro] 500 mg PO BID@799,199902/18/24 02/18/24 History Ensure 1 can PO BID@799,199902/18/24 02/18/24 History Magnesium Hydroxide [Milk of 2,400 mg PO DAILY PRN 02/18/24 02/18/24 History Magnesia] Melatonin 3 mg PO HS PRN 02/18/24 02/18/24 History Menthol-Zinc Oxide Oint 1 applic TOPICAL TID 02/18/24 02/18/24 History [Calmoseptine Ointment] Ocusoft Lid Pad Scrub 1 pad BOTH EYES DAILY@0800 02/18/24 02/18/24 History Refresh Classic Pf 1.4-0.6% 2 drops BOTH EYES Q12H PRN 02/18/24 02/18/24 History Sennosides [Senokot] 8.6 mg PO BID@08,199902/18/24 02/18/24 History bisacodyL [Dulcolax] 10 mg RECTAL DAILY PRN 02/18/24 02/18/24 History traMADol HCL 25 mg PO Q8H PRN 02/18/24 02/18/24 History Allergies Allergy/AdvReac Type Severity Reaction Status Date / Time No Known Allergies Allergy Verified 02/18/24 17:19 Physical Examination - Vital Signs Vital Signs: Vital Signs Temp Pulse Pulse Resp BP BP BP 02/19/24 15:14 97.4 F L 92 16 121/61 02/19/24 13:37 73 17 02/19/24 10:19 73 17 02/19/24 07:00 97.3 F L 73 17 161/86 02/19/24 04:36 97.4 F L 107 H 19 141/88 02/18/24 22:54 98.4 F 100 18 96/59 02/18/24 22:33 88 18 93/61 02/18/24 17:14 97.4 F L 74 20 150/78 Pulse Ox 02/19/24 15:14 92 L 02/19/24 13:37 02/19/24 10:19 02/19/24 07:00 100 02/19/24 04:36 93 L 02/18/24 22:54 94 L 02/18/24 22:33 93 L 02/18/24 17:14 96 Intake and Output 02/19/24 02/19/24 02/19/24 06:59 14:59 22:59 Intake Total 0 Balance 0 Intake: Oral 0 Other: Voiding Method External Catheter External Catheter # Voids 0 Weight 70.307 kg General: Lying in bed and does not appear in acute distress. Neuro: Severely limited since severely drowsy and recently received antipsychotic (Haldol) and yesterday recently Benzo (Ativan). With painful stimuli she says ouch. Results - Laboratory Findings CBC and BMP: 02/18/24 17:47 02/18/24 17:47 Abnormal Lab Findings: Abnormal Labs 02/18/24 17:47 BUN 37 H Creatinine 1.40 H Assessment and Plan Assessment: This is an 88-year-old woman who presents to the emergency department from her nursing facility because of hallucination, confusion agitation over the past 3 days. It seems that she was declining over the past 1 month. She had a recent urinary tract infection. She had a syncopal episode and my colleague felt was due to vasovagal versus orthostatic as well as had urinary tract infection. Acute confusion, agitation and hallucination: Unsure if patient has underlying dementia. Has a component of metabolic encephalopathy Recent syncopal episode and my colleague felt was due to vasovagal versus orthostatic Recent acute urinary tract infection Reported history of disturbance and it was felt also by my colleague possible mild cognitive impairment Atrial fibrillation on Eliquis Hypertension Plan: I ordered a routine EEG. Patient had a recent TSH, vitamin B12, folate and it does not need to be repeated. Recommend neuropsych evaluation as an outpatient Psychiatry is consulted and they started the patient on Zyprexa 5 mg 1 tablet twice daily as needed for agitation as well as Seroquel milligram nightly and 25 mg daily. Defer the rest of the medical management to primary other specialist. Thank you for the consultation. Time with Patient: Greater than 30
--- NOTE | 2024-02-19 16:40 | P.HPIM ---
History of Present Illness H&P Date: 02/19/24 Sandra Pro, is an 88-year-old female who was brought into [facility] emergency room, due to mental status changes confusion and agitation. She was evaluated in the emergency room vital examination on presentation revealed a temperature of 97.4 pulse 74 respiration 20 blood pressure 150/78 pulse ox 96% on room air Laboratory data reveals a white blood count of 7.2 hemoglobin 12.8 platelet count 228 BUN 37 creatinine 1.4 Testing in the emergency room revealed chest x-ray done in the emergency room revealed cardiomegaly with pulmonary vascular congestion and small left pleural effusion, CT scan of the brain without contrast done in the emergency room revealed no acute intracranial abnormality Patient was admitted to medical floor for further evaluation and treatment Past Medical History Past Medical History: Atrial Fibrillation, Heart Failure, Hypertension Additional Past Medical History / Comment(s): Gout approx 20 years ago History of Any Multi-Drug Resistant Organisms: None Reported Past Surgical History: No Surgical Hx Reported Past Anesthesia/Blood Transfusion Reactions: No Reported Reaction Past Psychological History: Anxiety Smoking Status: Never smoker Past Alcohol Use History: None Reported Past Drug Use History: None Reported Medications and Allergies Home Medications Medication Instructions Recorded Confirmed Type Apixaban [Eliquis] 5 mg PO BID@0800,199905/16/21 02/18/24 History Aspirin EC [Ecotrin Low Dose] 81 mg PO DAILY@0800 05/16/21 02/18/24 History Furosemide [Lasix] 20 mg PO DAILY@0800 05/16/21 02/18/24 History Metoprolol Tartrate [Lopressor] 50 mg PO BID@08,199905/16/21 02/18/24 History Simvastatin [Zocor] 20 mg PO HS@199905/16/21 02/18/24 History allopurinoL [Zyloprim] 100 mg PO DAILY@0800 05/16/21 02/18/24 History hydrALAZINE HCL [Apresoline] 25 mg PO BID@799,199901/13/24 02/18/24 History ALPRAZolam [Xanax] 0.25 mg PO TID PRN 02/18/24 02/18/24 History Acetaminophen [Tylenol] 650 mg PO Q4H PRN MDD 4000mg 02/18/24 02/18/24 History Caldesene Powder 1 applic TOPICAL TID 02/18/24 02/18/24 History Carbamide Peroxide [Debrox Otic] 10 drops BOTH EARS WE@0800 02/18/24 02/18/24 History Ciprofloxacin HCl [Cipro] 500 mg PO BID@08,199902/18/24 02/18/24 History Ensure 1 can PO BID@08,199902/18/24 02/18/24 History Magnesium Hydroxide [Milk of 2,400 mg PO DAILY PRN 02/18/24 02/18/24 History Magnesia] Melatonin 3 mg PO HS PRN 02/18/24 02/18/24 History Menthol-Zinc Oxide Oint 1 applic TOPICAL TID 02/18/24 02/18/24 History [Calmoseptine Ointment] Ocusoft Lid Pad Scrub 1 pad BOTH EYES DAILY@0800 02/18/24 02/18/24 History Refresh Classic Pf 1.4-0.6% 2 drops BOTH EYES Q12H PRN 02/18/24 02/18/24 History Sennosides [Senokot] 8.6 mg PO BID@0800,199902/18/24 02/18/24 History bisacodyL [Dulcolax] 10 mg RECTAL DAILY PRN 02/18/24 02/18/24 History traMADol HCL 25 mg PO Q8H PRN 02/18/24 02/18/24 History Allergies Allergy/AdvReac Type Severity Reaction Status Date / Time No Known Allergies Allergy Verified 02/18/24 17:19 Physical Exam Vitals: Vital Signs Temp Pulse Pulse Resp BP BP Pulse Ox 02/19/24 04:36 97.4 F L 107 H 19 141/88 93 L 02/18/24 22:54 98.4 F 100 18 96/59 94 L 02/18/24 22:33 88 18 93/61 93 L 02/18/24 17:14 97.4 F L 74 20 150/78 96 Intake and Output 02/18/24 02/19/24 02/19/24 22:59 06:59 14:59 Other: Voiding Method External Catheter # Voids 0 Weight 70.307 kg 70.307 kg In general patient is alert, confused in no distress HEENT head normocephalic and atraumatic Neck is supple no JVD no goiter no lymphadenopathy no carotid bruit Chest examination is clear to auscultation no crackles no wheezing Cardiac exam reveals irregular heart sounds S1 and S2 with 3/6 systolic murmur in the left sternal border Abdomen is soft nontender no organomegaly with normal bowel sounds Extremity exam reveals no edema no cyanosis or clubbing Neurological examination reveals no gross focal deficits Results CBC & Chem 7: 02/18/24 17:47 02/18/24 17:47 Labs: Abnormal Lab Results - Last 24 Hours (Table) 02/18/24 Range/Units 17:47 BUN 37 H (7-17) mg/dL Creatinine 1.40 H (0.52-1.04) mg/dL Assessment and Plan Plan: Acute confusion with agitation Recent admission with syncopal episode 1 month ago Recent urinary tract infection, resolved urine now is clear Underlying history of atrial fibrillation Underlying history of hypertension At this time patient was seen and examined Home medications reviewed and reordered Neurology consultation and psychiatry consultation requested Will follow closely recheck labs in the a.m. For DVT prophylaxis patient is on Eliquis
[2024-02-19] MEDS: OLANZapine 10 MG VIAL IM PRN (17:04)
[2024-02-19] MEDS: ATORVASTATIN 10 MG TAB PO SCH (22:20)
[2024-02-19] MEDS: QUEtiapine 50 MG TAB PO SCH (22:21)
[2024-02-20 08:48] LABS: Basophils # (A) 0.02 X 10*3/uL (0.00-0.10); Basophils % (A) 0.2 %; Eosinophils # (A) 0.08 X 10*3/uL (0.04-0.35); Eosinophils % (A) 0.8 %; HCT 40.9 % (37.2-46.3); HGB 12.9 g/dL (12.0-15.0); Lymphocytes # (A) 1.19 X 10*3/uL (0.90-5.00); Lymphocytes % (A) 11.9 %; MCH 30.6 pg (27.0-32.0); MCHC 31.5 g/dL (32.0-37.0); MCV 97.1 FL (80.0-97.0); Monocytes # (A) 0.77 X 10*3/uL (0.20-1.00); Monocytes % (A) 7.7 %; NRBC Per 100 WBC 0 X 10*3/uL (0.00-0.01); Neutrophils # (A) 7.92 X 10*3/uL (1.80-7.70); Neutrophils % (A) 79.1 %; Platelet Count 220 X 10*3/uL (140-440); RBC 4.21 X 10*6/uL (4.10-5.20); RDW 14.1 % (11.5-14.5); WBC 10.01 X 10*3/uL (4.50-10.00)
[2024-02-20 09:00] LABS: ALT 22 U/L (8-44); AST 33 U/L (13-35); Albumin 3.7 g/dL (3.8-4.9); Albumin/Globulin Ratio 1.76 Ratio (1.60-3.17); Alkaline Phosphatase 82 U/L (41-126); BUN/Creat Ratio 25.18 Ratio (12.00-20.00); Blood Urea Nitrogen 27.7 mg/dL (9.0-27.0); Calcium 9.6 mg/dL (8.7-10.3); Carbon Dioxide 20.3 mmol/L (21.6-31.8); Chloride 109 mmol/L (96-109); Globulin 2.1 g/dL (1.6-3.3); Glucose 90 mg/dL (70-110); Sodium 145 mmol/L (135-145); Total Bilirubin 0.7 mg/dL (0.3-1.2); Total Protein 5.8 g/dL (6.2-8.2)
--- NOTE | 2024-02-20 09:11 | P.PN ---
Subjective Progress Note Date: 02/20/24 Sandra Pro, is an 88-year-old female who was brought into [facility] emergency room, due to mental status changes confusion and agitation. She was evaluated in the emergency room vital examination on presentation revealed a temperature of 97.4 pulse 74 respiration 20 blood pressure 150/78 pulse ox 96% on room air Laboratory data reveals a white blood count of 7.2 hemoglobin 12.8 platelet count 228 BUN 37 creatinine 1.4 Testing in the emergency room revealed chest x-ray done in the emergency room revealed cardiomegaly with pulmonary vascular congestion and small left pleural effusion, CT scan of the brain without contrast done in the emergency room revealed no acute intracranial abnormality Patient was admitted to medical floor for further evaluation and treatment On 02/20/2024 patient remains confused in bed. Patient was evaluated by psychiatry services Xiao and Seroquel had been added. EEG also ordered per neurology. Current vital signs temp 97.7, heart 62, respiratory rate 132/78 with a pulse ox of 96% on room air Objective - Vital Signs Vital signs: Vital Signs Temp 97.7 F 02/20/24 07:40 Pulse 62 02/20/24 07:40 Resp 20 02/20/24 07:40 BP 132/78 02/20/24 07:40 Pulse Ox 96 02/20/24 07:40 FiO2 Intake & Output 02/19/24 02/20/24 02/20/24 18:59 06:59 18:59 Intake Total 0 0 Output Total 600 350 Balance -600 -350 Intake: Oral 0 0 Output: Urine 600 350 Uretheral (Caba) 600 Other: Voiding Method External Catheter Indwelling Catheter - Exam In general patient is alert, confused in no distress HEENT head normocephalic and atraumatic Neck is supple no JVD no goiter no lymphadenopathy no carotid bruit Chest examination is clear to auscultation no crackles no wheezing Cardiac exam reveals irregular heart sounds S1 and S2 with 3/6 systolic murmur in the left sternal border Abdomen is soft nontender no organomegaly with normal bowel sounds Extremity exam reveals no edema no cyanosis or clubbing Neurologica confused - Labs CBC & Chem 7: 02/20/24 02:55 02/20/24 02:55 Labs: Abnormal Lab Results - Last 24 Hours (Table) 02/20/24 02/20/24 Range/Units 02:55 02:55 WBC 10.01 H (4.50-10.00) X 10*3/uL MCV 97.1 H (80.0-97.0) FL MCHC 31.5 L (32.0-37.0) g/dL Neutrophils # 7.92 H (1.80-7.70) X 10*3/uL Carbon Dioxide 20.3 L (21.6-31.8) mmol/L Anion Gap 15.70 H (4.00-12.00) mmol/L BUN 27.7 H (9.0-27.0) mg/dL Est GFR (CKD-EPI) 49 L (>=60) BUN/Creatinine Ratio 25.18 H (12.00-20.00) Ratio Total Protein 5.8 L (6.2-8.2) g/dL Albumin 3.7 L (3.8-4.9) g/dL Assessment and Plan Assessment: Acute confusion with agitation Recent admission with syncopal episode 1 month ago Recent urinary tract infection, resolved urine now is clear Underlying history of atrial fibrillation Underlying history of hypertension At this time patient was seen and examined Home medications reviewed and reordered Neurology consultation and psychiatry consultation requested Will follow closely recheck labs in the a.m. For DVT prophylaxis patient is on Eliquis
[2024-02-20] MEDS: QUEtiapine 25 MG TAB PO SCH (10:21)
--- NOTE | 2024-02-20 14:33 | P.PN ---
Subjective Progress Note Date: 02/20/24 I am following up with the patient and she continues to be confused per the nursing staff aids. Objective - Vital Signs Vital signs: Vital Signs Temp 97.4 F L 02/20/24 12:37 Pulse 89 02/20/24 12:37 Resp 20 02/20/24 14:00 BP 120/74 02/20/24 12:37 Pulse Ox 99 02/20/24 12:37 FiO2 Intake & Output 02/19/24 02/20/24 02/20/24 18:59 06:59 18:59 Intake Total 0 0 Output Total 600 350 225 Balance -600 -350 -225 Intake: Oral 0 0 Output: Urine 600 350 225 Uretheral (Caba) 600 Other: Voiding Method External Catheter Indwelling Catheter Indwelling Catheter - Exam General: Does not appear in acute distress. Neuro: Very Limited. Is stupor but would briefly open her eye. She would garble then close her eyes eye and fall asleep. No jerking of extremities. Some of the workup during this hospital visit consisted of: Reviewed the lab workup and that her creatinine and BUN is mildly elevated Urinalysis is unremarkable for any acute tract infection CT head is reported as no acute intracranial abnormality. I personally reviewed the CT and agree with the report. - Labs CBC & Chem 7: 02/20/24 02:55 02/20/24 02:55 Labs: Abnormal Lab Results - Last 24 Hours (Table) 02/20/24 02/20/24 Range/Units 02:55 02:55 WBC 10.01 H (4.50-10.00) X 10*3/uL MCV 97.1 H (80.0-97.0) FL MCHC 31.5 L (32.0-37.0) g/dL Neutrophils # 7.92 H (1.80-7.70) X 10*3/uL Carbon Dioxide 20.3 L (21.6-31.8) mmol/L Anion Gap 15.70 H (4.00-12.00) mmol/L BUN 27.7 H (9.0-27.0) mg/dL Est GFR (CKD-EPI) 49 L (>=60) BUN/Creatinine Ratio 25.18 H (12.00-20.00) Ratio Total Protein 5.8 L (6.2-8.2) g/dL Albumin 3.7 L (3.8-4.9) g/dL Assessment and Plan Assessment: This is an 88-year-old woman who presents to the emergency department from her nursing facility because of hallucination, confusion agitation over the past 3 days. It seems that she was declining over the past 1 month. She had a recent urinary tract infection. She had a syncopal episode and my colleague felt was due to vasovagal versus orthostatic as well as had urinary tract infection. Acute confusion, agitation and hallucination: Unsure if patient has underlying dementia. Has a component of metabolic encephalopathy Recent syncopal episode and my colleague felt was due to vasovagal versus orthostatic Recent acute urinary tract infection Reported history of disturbance and it was felt also by my colleague possible mild cognitive impairment Atrial fibrillation on Eliquis Hypertension Plan: Pending routine EEG. Patient had a recent TSH, vitamin B12, folate and it does not need to be repeated. Recommend neuropsych evaluation as an outpatient Psychiatry is consulted and they started the patient on Zyprexa 5 mg 1 tablet twice daily as needed for agitation as well as Seroquel milligram nightly and 25 mg daily. Defer the rest of the medical management to primary other specialist. Time with Patient: Less than 30
--- NOTE | 2024-02-20 14:43 | P.PN ---
Progress Note - Text Progress Note Date: 02/20/24 IDENTIFYING DATA: Patient is an 88-year-old female currently living at an assisted living facility REASON FOR CONSULT: Confusion and agitation INTERVAL HISTORY: Patient seen and evaluated. Daughter at bedside. Patient has refused her medications and continues to have poor oral intake. She received as needed Zyprexa 5 IM yesterday however has not received any thus far today. Patient very somnolent on examination. Daughter states that she is looking into a memory care facility for patient. MENTAL STATUS EXAM: General Appearance: Patient appears to be stated age. Patient appears to have poor hygiene and grooming wearing hospital gown with no eye contact. Behavior: Patient is calmly lying in bed, asleep. Mood/Affect: Unable to assess Suicidality/Homicidality: Unable to assess Perceptions: Reportedly was having hallucinations Judgment and insight: Poor IMPRESSIONS: Delirium, prolonged Dementia, unspecified PLAN: -At this time patient DOES NOT meet criteria for inpatient psychiatric admission. -Delirium precautions recommended with patient including - avoiding use of narcotics and [employer] sedatives, limit anticholinergic medications when possible, frequent re-orientation, minimize use of restraints, open window shades during the day and close them at night -Would recommend the following medication changes/additions: Continue to offer Seroquel 25 mg daily and 50 mg at bedtime, Zyprexa 5 mg p.o./IM as needed 3 times daily for acute safety concerns. Please avoid benzodiazepines given patient's altered mentation and worsening confusion -Will continue to follow along -Please contact with any questions.
[2024-02-20] MEDS: traMADol 50 MG TAB PO PRN (20:03)
--- NOTE | 2024-02-20 23:16 | EEG ---
ELECTROENCEPHALOGRAM REPORT CLINICAL HISTORY: This is an 88-year-old woman with altered mental status. The video EEG is obtained to evaluate for seizure epileptiform activity. RELEVANT MEDICATIONS: 1. Zyprexa. 2. Seroquel. EEG TYPE: A routine 21-channel EEG with video using the 10/20 electrode placement system. DESCRIPTION: Wakefulness is only obtained. During awake state, the background consists of low-to- moderate voltage of 7 hertz activity intermixed with delta activity. There is no physiological stage 2 sleep architecture. There is no focal slowing. There is diffuse myogenic artifact seen mostly in the bilateral frontal region. Interictal and ictal is none. ACTIVATION PROCEDURE: Photic stimulation and hyperventilation are not performed. CLINICAL INTERPRETATION: This is an abnormal routine EEG. The background slowing is suggestive of moderate encephalopathy. Otherwise, there is no focal slowing, epileptiform discharge, or seizure on the EEG. Clinical correlation is recommended. KAVON / ASTER: [id number] / MTDD
--- NOTE | 2024-02-21 10:03 | P.PN ---
Subjective Progress Note Date: 02/21/24 Sandra Pro, is an 88-year-old female who was brought into [facility] emergency room, due to mental status changes confusion and agitation. She was evaluated in the emergency room vital examination on presentation revealed a temperature of 97.4 pulse 74 respiration 20 blood pressure 150/78 pulse ox 96% on room air Laboratory data reveals a white blood count of 7.2 hemoglobin 12.8 platelet count 228 BUN 37 creatinine 1.4 Testing in the emergency room revealed chest x-ray done in the emergency room revealed cardiomegaly with pulmonary vascular congestion and small left pleural effusion, CT scan of the brain without contrast done in the emergency room revealed no acute intracranial abnormality Patient was admitted to medical floor for further evaluation and treatment On 02/20/2024 patient remains confused in bed. Patient was evaluated by psychiatry services Xiao and Seroquel had been added. EEG also ordered per neurology. Current vital signs temp 97.7, heart 62, respiratory rate 132/78 with a pulse ox of 96% on room air On 02/21/2024 patient remains confused in bed more sleepy today. Patient's grand granddaughter at bedside. Per patient's granddaughter patient is less agitated since the initiation of Seroquel. Neurology and psychiatry services are following. Family requesting patient be started on antibiotics because she was getting treated for UTI outpatient. UA was negative but due to sudden change of mental status changes will start on Rocephin obtain urine culture. Blood culture also will be ordered. Will also start patient on gentle hydration due to poor oral intake. Current vital signs temp 98.1, heart rate 84, respiratory rate 20, blood pressure 124/89 with a pulse ox of 99% on room air Objective - Vital Signs Vital signs: Vital Signs Temp 98.1 F 02/20/24 15:00 Pulse 97 02/20/24 19:44 Resp 18 02/20/24 19:44 BP 154/78 02/20/24 19:44 Pulse Ox 95 02/21/24 08:20 FiO2 Intake & Output 02/20/24 02/21/24 02/21/24 18:59 06:59 18:59 Output Total 225 500 Balance -225 -500 Output: Urine 225 500 Uretheral (Caba) 200 Other: Voiding Method Indwelling Catheter Indwelling Catheter # Bowel Movements 0 - Exam In general patient is alert, confused in no distress HEENT head normocephalic and atraumatic Neck is supple no JVD no goiter no lymphadenopathy no carotid bruit Chest examination is clear to auscultation no crackles no wheezing Cardiac exam reveals irregular heart sounds S1 and S2 with 3/6 systolic murmur in the left sternal border Abdomen is soft nontender no organomegaly with normal bowel sounds Extremity exam reveals no edema no cyanosis or clubbing Neurologica confused - Labs CBC & Chem 7: 02/20/24 02:55 02/20/24 02:55 Assessment and Plan Assessment: Acute confusion with agitation Recent admission with syncopal episode 1 month ago Recent urinary tract infection, resolved urine now is clear Underlying history of atrial fibrillation Underlying history of hypertension At this time patient was seen and examined Home medications reviewed and reordered Neurology consultation and psychiatry consultation requested Will follow closely recheck labs in the a.m. For DVT prophylaxis patient is on Eliquis
[2024-02-21] MEDS: SODIUM CHLORIDE 0.9% 1,000 ML IV SCH ×2 (10:33→16:59)
[2024-02-21 10:41] LABS: ALT 15 U/L (8-44); AST 26 U/L (13-35); Albumin 3.8 g/dL (3.8-4.9); Albumin/Globulin Ratio 1.65 Ratio (1.60-3.17); Alkaline Phosphatase 78 U/L (41-126); BUN/Creat Ratio 21.62 Ratio (12.00-20.00); Blood Urea Nitrogen 34.6 mg/dL (9.0-27.0); Calcium 10.2 mg/dL (8.7-10.3); Carbon Dioxide 18.8 mmol/L (21.6-31.8); Chloride 109 mmol/L (96-109); Globulin 2.3 g/dL (1.6-3.3); Glucose 133 mg/dL (70-110); Potassium 4.4 mmol/L (3.5-5.5); Sodium 145 mmol/L (135-145); Total Bilirubin 0.9 mg/dL (0.3-1.2); Total Protein 6.1 g/dL (6.2-8.2)
[2024-02-21 10:47] LABS: Basophils # (A) 0.03 X 10*3/uL (0.00-0.10); Basophils % (A) 0.3 %; Eosinophils # (A) 0.01 X 10*3/uL (0.04-0.35); Eosinophils % (A) 0.1 %; HGB 12.9 g/dL (12.0-15.0); Lymphocytes # (A) 1.69 X 10*3/uL (0.90-5.00); MCH 30.7 pg (27.0-32.0); MCHC 31.5 g/dL (32.0-37.0); MCV 97.6 FL (80.0-97.0); Mean Platelet Volume 12.3 FL (9.5-12.2); Monocytes # (A) 1.13 X 10*3/uL (0.20-1.00); Monocytes % (A) 10.7 %; NRBC Per 100 WBC 0 X 10*3/uL (0.00-0.01); Neutrophils # (A) 7.67 X 10*3/uL (1.80-7.70); Neutrophils % (A) 72.7 %; Platelet Count 228 X 10*3/uL (140-440); RDW 14.5 % (11.5-14.5); WBC 10.55 X 10*3/uL (4.50-10.00)
--- NOTE | 2024-02-21 15:23 | P.PN ---
Subjective Progress Note Date: 02/21/24 I am following up with the patient and she is accompanied with her sister. Patient states that she believes that the patient has underlying history of dementia over the past few years in which the patient has retained long-term memory but her short-term memory is being affected. It seems that the patient had a syncopal episode about a month ago according to the sister but was doing well other than that and was doing well up until 4 days ago in which she drastically declined and now she is very confused agitated restless. Also the sister stated that recently she had an episode that she bended to her knees and she was shaken and now she has no movement of her legs Objective - Vital Signs Vital signs: Vital Signs Temp 98.1 F 02/20/24 15:00 Pulse 97 02/20/24 19:44 Resp 16 02/21/24 10:44 BP 135/84 02/21/24 10:44 Pulse Ox 93 L 02/21/24 10:44 FiO2 Intake & Output 02/20/24 02/21/24 02/21/24 18:59 06:59 18:59 Output Total 225 500 25 Balance -225 -500 -25 Output: Urine 225 500 25 Uretheral (Caba) 200 Other: Voiding Method Indwelling Catheter Indwelling Catheter Indwelling Catheter # Bowel Movements 0 - Exam General: Does not appear in acute distress. Neuro: Very Limited. Severely drowsy but briefly responding appropriately to her name and she followed very minimal few simple commands such as showing a thumbs up and sticking her tongue otherwise she is severely encephalopathic. No jerking of the any extremities Some of the workup during this hospital visit consisted of: Reviewed the lab workup and that her creatinine and BUN is mildly elevated Urinalysis is unremarkable for any acute tract infection CT head is reported as no acute intracranial abnormality. I personally reviewed the CT and agree with the report. Routine EEG is abnormal. The Background slowing suggestive of moderate encephalopathy. Otherwise there is no focal slowing, OptiForm discharge or seizure on the EEG - Labs CBC & Chem 7: 02/21/24 05:26 02/21/24 05:26 Labs: Abnormal Lab Results - Last 24 Hours (Table) 02/21/24 02/21/24 Range/Units 05:26 05:26 WBC 10.55 H (4.50-10.00) X 10*3/uL MCV 97.6 H (80.0-97.0) FL MCHC 31.5 L (32.0-37.0) g/dL MPV 12.3 H (9.5-12.2) FL Monocytes # 1.13 H (0.20-1.00) X 10*3/uL Eosinophils # 0.01 L (0.04-0.35) X 10*3/uL Carbon Dioxide 18.8 L (21.6-31.8) mmol/L Anion Gap 17.20 H (4.00-12.00) mmol/L BUN 34.6 H (9.0-27.0) mg/dL Creatinine 1.6 H (0.6-1.5) mg/dL Est GFR (CKD-EPI) 31 L (>=60) BUN/Creatinine Ratio 21.62 H (12.00-20.00) Ratio Glucose 133 H (70-110) mg/dL Total Protein 6.1 L (6.2-8.2) g/dL Assessment and Plan Assessment: This is an 88-year-old woman who presents to the emergency department from her nursing facility because of hallucination, confusion agitation over the past 3 days. It seems that she was declining over the past 1 month. She had a recent urinary tract infection. She had a syncopal episode and my colleague felt was due to vasovagal versus orthostatic as well as had urinary tract infection. Recent Episode of leg shaking with confusion unsure if patient had seizure-like activity especially with her underlying history of dementia Acute confusion, agitation and hallucination: Unsure if patient has underlying dementia. Has a component of metabolic encephalopathy Recent syncopal episode and my colleague felt was due to vasovagal versus orthostatic Recent acute urinary tract infection Reported history of disturbance and it was felt also by my colleague possible mild cognitive impairment. 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 Atrial fibrillation on Eliquis Hypertension Plan: Start the patient empirically on Vimpat 50 mg twice daily. I will avoid Keppra because of side effects of mood irritability especially with the patient restlessness. I will get a repeat EEG and that is to be scheduled on 02/23/2024. Patient had a recent TSH, vitamin B12, folate and it does not need to be repeated. Recommend neuropsych evaluation as an outpatient Psychiatry is consulted and they started the patient on Zyprexa 5 mg 1 tablet twice daily as needed for agitation as well as Seroquel milligram nightly and 25 mg daily. Defer the rest of the medical management to primary other specialist. The plan is discussed with patient's sister who is at bedside. Time with Patient: Less than 30
[2024-02-21] MEDS: Lacosamide IV (ages 17+ yrs) 200 MG/20 ML ML IVP SCH (16:27)
[2024-02-22 08:02] LABS: African American GFR (CKD) 45 (>60 ml/min/1.73 sqM); Non-African American GFR(CKD) 39 (>60 ml/min/1.73 sqM)
[2024-02-22] MEDS: ACETAMINOPHEN TAB 325 MG TAB PO PRN (08:05)
--- NOTE | 2024-02-22 11:39 | P.PN ---
Subjective Progress Note Date: 02/22/24 I am following-up with patient and per her nurse, she is showing some improvement today compared to yesterday. Objective - Vital Signs Vital signs: Vital Signs Temp 100.5 F H 02/22/24 07:25 Pulse 100 02/22/24 07:25 Resp 18 02/22/24 07:25 BP 135/72 02/22/24 07:25 Pulse Ox 95 02/22/24 07:25 FiO2 Intake & Output 02/21/24 02/22/24 02/22/24 18:59 06:59 18:59 Intake Total 0 Output Total 325 50 Balance -325 -50 Intake: Oral 0 Output: Urine 325 50 Other: Voiding Method Indwelling Catheter Indwelling Catheter - Exam General: Does not appear in acute distress. Neuro: Very Limited. Moderate to Severely drowsy but seems a bit more awakeable today. Is oriented to self. She was able to identify objects such as a cup, phone and for the pen she said pencil. She is able to follow few simple commands such as sticking her tongue out smiling showed me minimal thumbs up. Otherwise rest of examination is limited. Some of the workup during this hospital visit consisted of: Reviewed the lab workup and that her creatinine and BUN is mildly elevated Urinalysis is unremarkable for any acute tract infection CT head is reported as no acute intracranial abnormality. I personally reviewed the CT and agree with the report. Routine EEG is abnormal. The Background slowing suggestive of moderate encephalopathy. Otherwise there is no focal slowing, OptiForm discharge or seizure on the EEG - Labs CBC & Chem 7: 02/21/24 05:26 02/22/24 07:27 Labs: Abnormal Lab Results - Last 24 Hours (Table) 02/22/24 Range/Units 07:27 Creatinine 1.26 H (0.52-1.04) mg/dL Assessment and Plan Assessment: This is an 88-year-old woman who presents to the emergency department from her nursing facility because of hallucination, confusion agitation over the past 3 days. It seems that she was declining over the past 1 month. She had a recent urinary tract infection. She had a syncopal episode and my colleague felt was due to vasovagal versus orthostatic as well as had urinary tract infection. Recent Episode of leg shaking with confusion unsure if patient had seizure-like activity especially with her underlying history of dementia---today there is slight improvement Acute confusion, agitation and hallucination: Unsure if patient has underlying dementia. Has a component of metabolic encephalopathy Recent syncopal episode and my colleague felt was due to vasovagal versus orthostatic Recent acute urinary tract infection Reported history of disturbance and it was felt also by my colleague possible mild cognitive impairment. 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 Atrial fibrillation on Eliquis Hypertension Plan: Start the patient empirically on Vimpat 50 mg twice daily on 02/21/2024. I will avoid Keppra because of side effects of mood irritability especially with the patient restlessness. I will get a repeat EEG and that is to be scheduled on 02/23/2024. I will get MRI brain. Patient had a recent TSH, vitamin B12, folate and it does not need to be repeated. Recommend neuropsych evaluation as an outpatient Psychiatry is consulted and they started the patient on Zyprexa 5 mg 1 tablet twice daily as needed for agitation as well as Seroquel milligram nightly and 25 mg daily. Defer the rest of the medical management to primary other specialist. The plan is discussed with patient's nurse. Dr. Hunter will resume neurology service tomorrow A.M. Time with Patient: Less than 30
--- NOTE | 2024-02-22 15:45 | P.PN ---
Subjective Progress Note Date: 02/22/24 Sandra Pro, is an 88-year-old female who was brought into [facility] emergency room, due to mental status changes confusion and agitation. She was evaluated in the emergency room vital examination on presentation revealed a temperature of 97.4 pulse 74 respiration 20 blood pressure 150/78 pulse ox 96% on room air Laboratory data reveals a white blood count of 7.2 hemoglobin 12.8 platelet count 228 BUN 37 creatinine 1.4 Testing in the emergency room revealed chest x-ray done in the emergency room revealed cardiomegaly with pulmonary vascular congestion and small left pleural effusion, CT scan of the brain without contrast done in the emergency room revealed no acute intracranial abnormality Patient was admitted to medical floor for further evaluation and treatment On 02/20/2024 patient remains confused in bed. Patient was evaluated by psychiatry services Zyprexa and Seroquel had been added. EEG also ordered per neurology. Current vital signs temp 97.7, heart 62, respiratory rate 132/78 with a pulse ox of 96% on room air On 02/21/2024 patient remains confused in bed more sleepy today. Patient's grand granddaughter at bedside. Per patient's granddaughter patient is less agitated since the initiation of Seroquel. Neurology and psychiatry services are following. Family requesting patient be started on antibiotics because she was getting treated for UTI outpatient. UA was negative but due to sudden change of mental status changes will start on Rocephin obtain urine culture. Blood culture also will be ordered. Will also start patient on gentle hydration due to poor oral intake. Current vital signs temp 98.1, heart rate 84, respiratory rate 20, blood pressure 124/89 with a pulse ox of 99% on room air On 02/22/2024 patient was seen and examined on the medical floor she is somnolent responsive answering few questions by yes or no, no new episodes of agitation today, she remains on Zyprexa 5 mg twice daily as needed and Seroquel 50 mg at bedtime and 25 mg in the morning, patient is also maintained on IV ceftriaxone for urinary tract infection Objective - Vital Signs Vital signs: Vital Signs Temp 100.5 F H 02/22/24 07:25 Pulse 100 02/22/24 07:25 Resp 18 02/22/24 07:25 BP 135/72 02/22/24 07:25 Pulse Ox 95 02/22/24 07:25 FiO2 Intake & Output 02/21/24 02/22/24 02/22/24 18:59 06:59 18:59 Intake Total 0 Output Total 325 50 Balance -325 -50 Intake: Oral 0 Output: Urine 325 50 Other: Voiding Method Indwelling Catheter Indwelling Catheter - Exam In general patient is alert, confused in no distress HEENT head normocephalic and atraumatic Neck is supple no JVD no goiter no lymphadenopathy no carotid bruit Chest examination is clear to auscultation no crackles no wheezing Cardiac exam reveals irregular heart sounds S1 and S2 with 3/6 systolic murmur in the left sternal border Abdomen is soft nontender no organomegaly with normal bowel sounds Extremity exam reveals no edema no cyanosis or clubbing Neurologica confused - Labs CBC & Chem 7: 02/21/24 05:26 02/22/24 07:27 Labs: Abnormal Lab Results - Last 24 Hours (Table) 02/22/24 Range/Units 07:27 Creatinine 1.26 H (0.52-1.04) mg/dL Assessment and Plan Assessment: Acute confusion with agitation Recent admission with syncopal episode 1 month ago Recent urinary tract infection, resolved urine now is clear Underlying history of atrial fibrillation Underlying history of hypertension At this time patient was seen and examined Home medications reviewed and reordered Neurology consultation and psychiatry consultation requested Will follow closely recheck labs in the a.m. For DVT prophylaxis patient is on Eliquis
[2024-02-22] MEDS: SODIUM CHLORIDE 0.9% 1,000 ML IV STA (16:12)
[2024-02-23 08:59] LABS: Basophils # (A) 0.01 X 10*3/uL (0.00-0.10); Basophils % (A) 0.1 %; Eosinophils # (A) 0.24 X 10*3/uL (0.04-0.35); Eosinophils % (A) 2.6 %; HCT 35.9 % (37.2-46.3); HGB 11.3 g/dL (12.0-15.0); Lymphocytes # (A) 1.66 X 10*3/uL (0.90-5.00); Lymphocytes % (A) 18.1 %; MCH 30.7 pg (27.0-32.0); MCHC 31.5 g/dL (32.0-37.0); MCV 97.6 FL (80.0-97.0); Mean Platelet Volume 12.5 FL (9.5-12.2); Monocytes # (A) 0.94 X 10*3/uL (0.20-1.00); Monocytes % (A) 10.2 %; NRBC Per 100 WBC 0 X 10*3/uL (0.00-0.01); Neutrophils # (A) 6.32 X 10*3/uL (1.80-7.70); Neutrophils % (A) 68.8 %; Platelet Count 194 X 10*3/uL (140-440); RBC 3.68 X 10*6/uL (4.10-5.20); RDW 14.3 % (11.5-14.5); WBC 9.19 X 10*3/uL (4.50-10.00)
[2024-02-23 09:45] LABS: ALT 16 U/L (8-44); AST 25 U/L (13-35); Albumin 3.3 g/dL (3.8-4.9); Albumin/Globulin Ratio 1.65 Ratio (1.60-3.17); Alkaline Phosphatase 62 U/L (41-126); BUN/Creat Ratio 33.09 Ratio (12.00-20.00); Blood Urea Nitrogen 36.4 mg/dL (9.0-27.0); Calcium 9.4 mg/dL (8.7-10.3); Carbon Dioxide 23.4 mmol/L (21.6-31.8); Chloride 114 mmol/L (96-109); Glucose 112 mg/dL (70-110); Potassium 3.5 mmol/L (3.5-5.5); Sodium 149 mmol/L (135-145); Total Bilirubin 0.5 mg/dL (0.3-1.2); Total Protein 5.3 g/dL (6.2-8.2)
--- NOTE | 2024-02-23 10:20 | MR ---
EXAMINATION TYPE: MR brain wo con DATE OF EXAM: 02/23/2024 COMPARISON: NONE CLINICAL INDICATION: Female, 88 years old with history of altered mental status PHH, Altered mental s tatus. TECHNIQUE: T1-weighted sagittal, T2, FLAIR, and diffusion axial, and T2 coronal coronal views of the brain are submitted. FINDINGS: There is no evidence of acute ischemia. Moderate degenerative change. Abnormal signal in the white matter is nonspecific but most typical of remote microvascular ischemia. There is no midline shift or mass effect. Mild changes of chronic sinusitis. Orbits are symmetric. Mastoid air cells are clear. Craniocervical junction maintained.. IMPRESSION: 1. No acute intracranial process. 2. Degenerative remote ischemic changes. [facility], , 02/23/2024 10:18 AM
--- NOTE | 2024-02-23 14:26 | P.PN ---
Subjective Progress Note Date: 02/23/24 Principal diagnosis: Altered Mental Satus with Leg Shaking Episode Ms. Pro is an 88-year-old female with history of atrial fibrillation (on Eliquis) congestive heart failure, hypertension, gout, and anxiety. She was admitted to [facility] on February 19 with symptoms of confusion as well as agitation. Chest x-ray revealed evidence of cardiomegaly with congestion and left-sided effusion of minimal nature. She suffered an episode of syncope 1 month ago. She has had a recent urinary tract infection but now as of February 17 her urinalysis was read is clean. She has recently been changed on some medications that she discontinued Xanax and is now been prescribed Seroquel as well as Zyprexa by psychiatry. When seen by neurology on February 18 she had recently been started on Ultram as well as Xanax with some declining function for about the past month which have been increased over the past 3 days. She has completed her urinary tract infection antibiotics on January 15. February 21 she appeared much slightly improved but had an episode of leg shaking while walking with physical therapy this was also while she was bending over and could have represented orthostatic process. She was she was started on Vimpat at that time and an EEG was performed today which is pending at this time. New Exam: The patient appears moderately to severely confused. She has difficulty remembering my name after approximately 1 minute. She is not aware she is in the hospital. She is able to follow some simple commands but has difficulties with others. She does not appear significantly dysarthric or aphasic at this time. Neurologic exam reveals normal cranial nerves with normal strength in her arms. Legs may be slightly weak at 4+/5. Sensory examination is intact there is no evident, there is no evidence of dysmetria on [id number], and reflex examination reveals 1+ symmetric reflexes. Studies: MRI of the brain from February 22 reveals evidence of small vessel disease without acute change. Other laboratories include thyroid-stimulating hormone of 2.75 B12 level of 4.82 and folate level 22.2. New Conclusion Ms. Pro is an 88-year-old female with recent evidence of altered mental status as well as leg shaking episodes possibly concerning for seizure. Today she is moderately severely confused. MRI does not reveal any evidence of vascular disease and EEG is pending. Plan: 1. I will read her EEG shortly and dictate results. Number next the patient has been placed on Seroquel 25 mg during the day and 50 mg nightly to regulate her sleep. Number next the patient continues on Rocephin 1 g every 24 hours as well as Vimpat 50 mg twice daily for possible seizure prophylaxis. Number next neurology will continue to follow the patient on a daily basis as of now. Objective - Vital Signs Vital signs: Vital Signs Temp 97.2 F L 02/23/24 14:00 Pulse 84 02/23/24 14:00 Resp 17 02/23/24 14:00 BP 141/82 02/23/24 14:00 Pulse Ox 99 02/23/24 14:00 FiO2 Intake & Output 02/22/24 02/23/24 02/23/24 18:59 06:59 18:59 Intake Total 60 Output Total 1550 450 400 Balance -1550 -390 -400 Intake: Oral 60 Output: Urine 1550 450 400 Other: Voiding Method Indwelling Catheter # Bowel Movements 0 - Labs CBC & Chem 7: 02/23/24 05:20 02/23/24 05:20 Labs: Abnormal Lab Results - Last 24 Hours (Table) 02/23/24 02/23/24 Range/Units 05:20 05:20 RBC 3.68 L (4.10-5.20) X 10*6/uL Hgb 11.3 L (12.0-15.0) g/dL Hct 35.9 L (37.2-46.3) % MCV 97.6 H (80.0-97.0) FL MCHC 31.5 L (32.0-37.0) g/dL MPV 12.5 H (9.5-12.2) FL Sodium 149 H (135-145) mmol/L Chloride 114 H (96-109) mmol/L BUN 36.4 H (9.0-27.0) mg/dL Est GFR (CKD-EPI) 49 L (>=60) BUN/Creatinine Ratio 33.09 H (12.00-20.00) Ratio Glucose 112 H (70-110) mg/dL Total Protein 5.3 L (6.2-8.2) g/dL Albumin 3.3 L (3.8-4.9) g/dL Microbiology - Last 24 Hours (Table) 02/21/24 11:33 Blood Culture - Preliminary Blood 02/21/24 15:35 Urine Culture - Final Urine,Catheterized
[2024-02-23 15:01] VITALS: BMI 30.2
--- NOTE | 2024-02-23 17:49 | P.PN ---
Subjective Progress Note Date: 02/23/24 Sandra Pro, is an 88-year-old female who was brought into [facility] emergency room, due to mental status changes confusion and agitation. She was evaluated in the emergency room vital examination on presentation revealed a temperature of 97.4 pulse 74 respiration 20 blood pressure 150/78 pulse ox 96% on room air Laboratory data reveals a white blood count of 7.2 hemoglobin 12.8 platelet count 228 BUN 37 creatinine 1.4 Testing in the emergency room revealed chest x-ray done in the emergency room revealed cardiomegaly with pulmonary vascular congestion and small left pleural effusion, CT scan of the brain without contrast done in the emergency room revealed no acute intracranial abnormality Patient was admitted to medical floor for further evaluation and treatment On 02/20/2024 patient remains confused in bed. Patient was evaluated by psychiatry services Zyprexa and Seroquel had been added. EEG also ordered per neurology. Current vital signs temp 97.7, heart 62, respiratory rate 132/78 with a pulse ox of 96% on room air On 02/21/2024 patient remains confused in bed more sleepy today. Patient's grand granddaughter at bedside. Per patient's granddaughter patient is less agitated since the initiation of Seroquel. Neurology and psychiatry services are following. Family requesting patient be started on antibiotics because she was getting treated for UTI outpatient. UA was negative but due to sudden change of mental status changes will start on Rocephin obtain urine culture. Blood culture also will be ordered. Will also start patient on gentle hydration due to poor oral intake. Current vital signs temp 98.1, heart rate 84, respiratory rate 20, blood pressure 124/89 with a pulse ox of 99% on room air On 02/22/2024 patient was seen and examined on the medical floor she is somnolent responsive answering few questions by yes or no, no new episodes of agitation today, she remains on Zyprexa 5 mg twice daily as needed and Seroquel 50 mg at bedtime and 25 mg in the morning, patient is also maintained on IV ceftriaxone for urinary tract infection On 02/23/2024 patient was seen and examined on the medical floor, she is more alert and oriented today there is no fever or chills no headache or dizziness no chest pain no shortness of breath no cough no nausea or vomiting no abdominal pain no diarrhea no urinary symptoms, sodium is elevated at 149 will change IV fluid to 0.45 at 75 cc/h, will do a trial of removing Caba catheter, MRI of the brain within normal limits discussed with patient and her family in details, EEG done today is still pending, will recheck in a.m. Objective - Vital Signs Vital signs: Vital Signs Temp 97.2 F L 02/23/24 14:00 Pulse 84 02/23/24 14:00 Resp 17 02/23/24 14:00 BP 141/82 02/23/24 14:00 Pulse Ox 99 02/23/24 14:00 FiO2 Intake & Output 02/22/24 02/23/24 02/23/24 18:59 06:59 18:59 Intake Total 60 Output Total 1550 450 400 Balance -1550 -390 -400 Intake: Oral 60 Output: Urine 1550 450 400 Other: Voiding Method Indwelling Catheter # Bowel Movements 0 - Exam In general patient is alert, confused in no distress HEENT head normocephalic and atraumatic Neck is supple no JVD no goiter no lymphadenopathy no carotid bruit Chest examination is clear to auscultation no crackles no wheezing Cardiac exam reveals irregular heart sounds S1 and S2 with 3/6 systolic murmur in the left sternal border Abdomen is soft nontender no organomegaly with normal bowel sounds Extremity exam reveals no edema no cyanosis or clubbing Neurologica confused - Labs CBC & Chem 7: 02/23/24 05:20 02/23/24 05:20 Labs: Abnormal Lab Results - Last 24 Hours (Table) 02/23/24 02/23/24 Range/Units 05:20 05:20 RBC 3.68 L (4.10-5.20) X 10*6/uL Hgb 11.3 L (12.0-15.0) g/dL Hct 35.9 L (37.2-46.3) % MCV 97.6 H (80.0-97.0) FL MCHC 31.5 L (32.0-37.0) g/dL MPV 12.5 H (9.5-12.2) FL Sodium 149 H (135-145) mmol/L Chloride 114 H (96-109) mmol/L BUN 36.4 H (9.0-27.0) mg/dL Est GFR (CKD-EPI) 49 L (>=60) BUN/Creatinine Ratio 33.09 H (12.00-20.00) Ratio Glucose 112 H (70-110) mg/dL Total Protein 5.3 L (6.2-8.2) g/dL Albumin 3.3 L (3.8-4.9) g/dL Microbiology - Last 24 Hours (Table) 02/21/24 11:33 Blood Culture - Preliminary Blood 02/21/24 15:35 Urine Culture - Final Urine,Catheterized Assessment and Plan Assessment: Acute confusion with agitation Recent admission with syncopal episode 1 month ago Recent urinary tract infection, resolved urine now is clear Underlying history of atrial fibrillation Underlying history of hypertension At this time patient was seen and examined Home medications reviewed and reordered Neurology consultation and psychiatry consultation requested Will follow closely recheck labs in the a.m. For DVT prophylaxis patient is on Eliquis
[2024-02-23] MEDS: SODIUM CHLORIDE 0.45% 1,000 ML IV SCH (18:47)
[2024-02-23] MEDS: LACTULOSE 20 GM/30 ML CUP PO ONE (18:47)
[2024-02-24 05:28] LABS: Basophils % (A) 1 %; Eosinophils # (A) 0.3 k/uL (0-0.7); Eosinophils % (A) 4 %; HCT 40.4 % (34.0-46.0); HGB 12.3 gm/dL (11.4-16.0); Hypochromasia Marked; Lymphocytes # (A) 1.5 k/uL (1.0-4.8); Lymphocytes % (A) 23 %; MCH 31.8 pg (25.0-35.0); MCHC 30.5 g/dL (31.0-37.0); Macrocytosis Slight; Mean Platelet Volume 9.5; Monocytes # (A) 0.5 k/uL (0-1.0); Monocytes % (A) 7 %; Neutrophils # (A) 4.1 k/uL (1.3-7.7); Neutrophils % (A) 62 %; Platelet Count 166 k/uL (150-450); RBC 3.88 m/uL (3.80-5.40); RDW 13.7 % (11.5-15.5); WBC 6.5 k/uL (3.8-10.6)
[2024-02-24 05:29] LABS: MCV 104.1 fL (80.0-100.0)
[2024-02-24 05:40] LABS: ALT 23 U/L (4-34); AST 34 U/L (14-36); African American GFR (CKD) 70 (>60 ml/min/1.73 sqM); Albumin 2.9 g/dL (3.5-5.0); Albumin/Globulin Ratio 1.2; Alkaline Phosphatase 64 U/L (38-126); Anion Gap 7 mmol/L; Blood Urea Nitrogen 33 mg/dL (7-17); Calcium 9.3 mg/dL (8.4-10.2); Carbon Dioxide 18 mmol/L (22-30); Chloride 115 mmol/L (98-107); Globulin 2.5 g/dL; Glucose 92 mg/dL (74-99); Non-African American GFR(CKD) 61 (>60 ml/min/1.73 sqM); Potassium 3.2 mmol/L (3.5-5.1); Sodium 140 mmol/L (137-145); Total Bilirubin 0.7 mg/dL (0.2-1.3); Total Protein 5.4 g/dL (6.3-8.2)
--- NOTE | 2024-02-24 10:17 | P.PN ---
Subjective Progress Note Date: 02/24/24 Sandra Pro, is an 88-year-old female who was brought into [facility] emergency room, due to mental status changes confusion and agitation. She was evaluated in the emergency room vital examination on presentation revealed a temperature of 97.4 pulse 74 respiration 20 blood pressure 150/78 pulse ox 96% on room air Laboratory data reveals a white blood count of 7.2 hemoglobin 12.8 platelet count 228 BUN 37 creatinine 1.4 Testing in the emergency room revealed chest x-ray done in the emergency room revealed cardiomegaly with pulmonary vascular congestion and small left pleural effusion, CT scan of the brain without contrast done in the emergency room revealed no acute intracranial abnormality Patient was admitted to medical floor for further evaluation and treatment On 02/20/2024 patient remains confused in bed. Patient was evaluated by psychiatry services Zyprexa and Seroquel had been added. EEG also ordered per neurology. Current vital signs temp 97.7, heart 62, respiratory rate 132/78 with a pulse ox of 96% on room air On 02/21/2024 patient remains confused in bed more sleepy today. Patient's grand granddaughter at bedside. Per patient's granddaughter patient is less agitated since the initiation of Seroquel. Neurology and psychiatry services are following. Family requesting patient be started on antibiotics because she was getting treated for UTI outpatient. UA was negative but due to sudden change of mental status changes will start on Rocephin obtain urine culture. Blood culture also will be ordered. Will also start patient on gentle hydration due to poor oral intake. Current vital signs temp 98.1, heart rate 84, respiratory rate 20, blood pressure 124/89 with a pulse ox of 99% on room air On 02/22/2024 patient was seen and examined on the medical floor she is somnolent responsive answering few questions by yes or no, no new episodes of agitation today, she remains on Zyprexa 5 mg twice daily as needed and Seroquel 50 mg at bedtime and 25 mg in the morning, patient is also maintained on IV ceftriaxone for urinary tract infection On 02/23/2024 patient was seen and examined on the medical floor, she is more alert and oriented today there is no fever or chills no headache or dizziness no chest pain no shortness of breath no cough no nausea or vomiting no abdominal pain no diarrhea no urinary symptoms, sodium is elevated at 149 will change IV fluid to 0.45 at 75 cc/h, will do a trial of removing Caba catheter, MRI of the brain within normal limits discussed with patient and her family in details, EEG done today is still pending, will recheck in a.m. On 02/24/2024 patient remains on the medical floor she is alert remains confused. Patient nydia on fluid and IV Rocephin neurology and psychiatry services are following. PT and OT services consulted social work consulted for discharge planning. Patient denies chest pain or shortness of breath. Patient denies nausea vomiting or diarrhea. Patient denies any urinary burning or frequency Objective - Vital Signs Vital signs: Vital Signs Temp 98.3 F 02/24/24 07:49 Pulse 109 H 02/24/24 07:49 Resp 16 02/24/24 07:49 BP 137/83 02/24/24 07:49 Pulse Ox 96 02/24/24 07:49 FiO2 Intake & Output 02/23/24 02/24/24 02/24/24 18:59 06:59 18:59 Output Total 600 Balance -600 Weight 70.307 kg Output: Urine 600 Other: Voiding Method Diaper External Catheter # Voids 0 - Exam In general patient is alert, confused in no distress HEENT head normocephalic and atraumatic Neck is supple no JVD no goiter no lymphadenopathy no carotid bruit Chest examination is clear to auscultation no crackles no wheezing Cardiac exam reveals irregular heart sounds S1 and S2 with 3/6 systolic murmur in the left sternal border Abdomen is soft nontender no organomegaly with normal bowel sounds Extremity exam reveals no edema no cyanosis or clubbing Neurologica confused - Labs CBC & Chem 7: 02/24/24 05:04 02/24/24 05:04 Labs: Abnormal Lab Results - Last 24 Hours (Table) 02/24/24 02/24/24 Range/Units 05:04 05:04 MCV 104.1 H D (80.0-100.0) fL MCHC 30.5 L (31.0-37.0) g/dL Potassium 3.2 L (3.5-5.1) mmol/L Chloride 115 H (98-107) mmol/L Carbon Dioxide 18 L (22-30) mmol/L BUN 33 H (7-17) mg/dL Total Protein 5.4 L (6.3-8.2) g/dL Albumin 2.9 L (3.5-5.0) g/dL Microbiology - Last 24 Hours (Table) 02/21/24 11:33 Blood Culture - Preliminary Blood Assessment and Plan Assessment: Acute confusion with agitation Recent admission with syncopal episode 1 month ago Recent urinary tract infection, resolved urine now is clear Underlying history of atrial fibrillation Underlying history of hypertension At this time patient was seen and examined Home medications reviewed and reordered Neurology consultation and psychiatry consultation requested Will follow closely recheck labs in the a.m. For DVT prophylaxis patient is on Eliquis
[2024-02-24] MEDS ORDERED: Potassium Replacement Protocol 1 EACH MISC MISCELLANE PRN (12:29)
--- NOTE | 2024-02-24 12:49 | P.PN ---
Subjective Progress Note Date: 02/24/24 Principal diagnosis: Altered Mental Status/ Possible Seizure Ms. Pro is an 88-year-old female with history of atrial fibrillation (on Eliquis) congestive heart failure, hypertension, gout, and anxiety. She was admitted to [facility] on February 19 with symptoms of confusion as well as agitation. Chest x-ray revealed evidence of cardiomegaly with congestion and left-sided effusion of minimal nature. She suffered an episode of syncope 1 month ago. She has had a recent urinary tract infection but now as of February 17 her urinalysis was read is clean. She has recently been changed on some medications that she discontinued Xanax and is now been prescribed Seroquel as well as Zyprexa by psychiatry. When seen by neurology on February 18 she had recently been started on Ultram as well as Xanax with some declining function for about the past month which have been increased over the past 3 days. She has completed her urinary tract infection antibiotics on January 15. February 21 she appeared much slightly improved but had an episode of leg shaking while walking with physical therapy this was also while she was bending over and could have represented orthostatic process. She was started on Vimpat 50 mg twice daily at that time and an EEG was performed On February 22, which showed a background rhythm of 9 to 10 Hz alpha to low beta rhythm without reactivity or epileptiform discharges. On examination today February 23, the family notes that the patient is more confused than yesterday. She did not sleep well last night and is tired this morning. She appears very sleepy and is difficult to arouse though this can be achieved. She is not oriented to hospital and not able to follow more than simple commands. Exam: The patient is somewhat difficult to arouse but is able to stay awake when verbally stimulated. She does not know she is at the hospital though she is able to speak well as an name objects as well as follow simple commands. Cranial nerves II through XII appear intact confrontation bilaterally. Motor examination reveals roughly 4-5 roughly 4+/5 strength with her bilateral upper extremities. Bilateral lower extremities are approximately 3 out of 5 bilaterally. Sensory examination does not reveal any evidence sensory deficit is on [id number]. Reflex exmination feels trace reflexes bilaterally. Pertinent studies: EEG from yesterday revealed a background rhythm of 9 to 10 Hz without reactivity or photic driving. This is indicative of possible mild encephalopathy but no epileptiform activity is noted. MRI of the brain revealed small vessel disease with no evidence of acute infarction. Conclusion: Ms. Pro is a 88-year-old female with history of atrial fibrillation, CHF, hypertension, and gout. She recently had an urinary tract infection for which she was treated with antibiotics. She was admitted to [facility] on February 19 with confusion as well as agitation and suffered 1 episo de of leg shaking while bending over. EEG did not reveal any evidence of epileptiform activity. She was placed on Seroquel 25 mg every morning and 2050 mg nightly with difficult sleep at night. She is also on Vimpat 50 mg twice daily for seizure prophylaxis. Plan: 1. I will taper her Vimpat at 50 mg daily for the next 3 days and then discontinue 2. I will discontinue her a.m. and p.m. Seroquel and prescribed 75 mg of Seroquel in the p.m. to help regulate her sleep and an effect effort to Keppra more awake during the day. 3. Neurology will continue to follow her in house and make further recommendations as needed. Objective - Vital Signs Vital signs: Vital Signs Temp 98.3 F 02/24/24 07:49 Pulse 109 H 02/24/24 07:49 Resp 16 02/24/24 07:49 BP 137/83 02/24/24 07:49 Pulse Ox 96 02/24/24 07:49 FiO2 Intake & Output 02/23/24 02/24/24 02/24/24 18:59 06:59 18:59 Output Total 600 0 Balance -600 0 Weight 70.307 kg Output: Urine 600 Post Void Residual 0 Other: Voiding Method Diaper Diaper External Catheter External Catheter # Voids 0 - Labs CBC & Chem 7: 02/24/24 05:04 02/24/24 05:04 Labs: Abnormal Lab Results - Last 24 Hours (Table) 02/24/24 02/24/24 Range/Units 05:04 05:04 MCV 104.1 H D (80.0-100.0) fL MCHC 30.5 L (31.0-37.0) g/dL Potassium 3.2 L (3.5-5.1) mmol/L Chloride 115 H (98-107) mmol/L Carbon Dioxide 18 L (22-30) mmol/L BUN 33 H (7-17) mg/dL Total Protein 5.4 L (6.3-8.2) g/dL Albumin 2.9 L (3.5-5.0) g/dL Microbiology - Last 24 Hours (Table) 02/21/24 11:33 Blood Culture - Preliminary Blood
[2024-02-24] MEDS: POTASSIUM CHLORIDE ER 20 MEQ TAB.ER PO SCH (14:03)
--- NOTE | 2024-02-24 14:52 | EEG ---
ELECTROENCEPHALOGRAM REPORT CURRENT MEDICATIONS: Include, 1. Acetaminophen. 2. Allopurinol. 3. Eliquis. 4. Artificial tears. 5. Aspirin. 6. Lipitor. 7. Dulcolax. 8. Rocephin. 9. Lasix. 10.Hydralazine. 11.Vimpat. 12.Milk of magnesia. 13.Zyprexa. 14.Seroquel. 15.Senokot. 16.Ultram. CHARACTERIZATION OF RECORD: This 24-minute electroencephalogram was characterized by the background rhythm of 9 to 10 Hertz alpha to low beta rhythm with some superimposed 6 to 7 Hertz theta rhythm. This rhythm was not occipitally dominant nor reactive to eye opening or eye closure. Photic stimulation was performed, it did not result in driving response in any frequency. No distinct sleep features were noted during this electroencephalogram. During this electroencephalogram, there was no evidence of focal slowing, focal spikes, sharp waves, or epileptiform discharges. CONCLUSION: This is a mildly abnormal electroencephalogram secondary to mild background slowing possibly consistent with the patient's stated age. There were no epileptiform discharges noted. MMODL / IJN: [id number] /
[2024-02-24] MEDS: NYSTATIN 100,000 UNIT/ML SUSP 500,000 UNIT/5 ML CUP PO SCH (17:29)
[2024-02-24] MEDS: QUEtiapine 25 MG TAB PO SCH (20:12)
[2024-02-25 08:41] LABS: Basophils # (A) 0.04 X 10*3/uL (0.00-0.10); Basophils % (A) 0.6 %; Eosinophils # (A) 0.35 X 10*3/uL (0.04-0.35); Eosinophils % (A) 4.8 %; HCT 38.1 % (37.2-46.3); HGB 12.4 g/dL (12.0-15.0); Lymphocytes # (A) 1.57 X 10*3/uL (0.90-5.00); Lymphocytes % (A) 21.7 %; MCH 31.5 pg (27.0-32.0); MCHC 32.5 g/dL (32.0-37.0); MCV 96.7 FL (80.0-97.0); Mean Platelet Volume 12.4 FL (9.5-12.2); Monocytes % (A) 9.7 %; NRBC Per 100 WBC 0 X 10*3/uL (0.00-0.01); Neutrophils # (A) 4.54 X 10*3/uL (1.80-7.70); Neutrophils % (A) 62.9 %; Platelet Count 200 X 10*3/uL (140-440); RBC 3.94 X 10*6/uL (4.10-5.20); RDW 13.7 % (11.5-14.5); WBC 7.22 X 10*3/uL (4.50-10.00)
[2024-02-25] MEDS: Lacosamide IV (ages 17+ yrs) 200 MG/20 ML ML IVP SCH (09:07)
[2024-02-25] MEDS: CARBAMIDE PEROXIDE 6.5% DROPS 15 ML BTL BOTH EARS SCH (09:08)
--- NOTE | 2024-02-25 09:09 | P.PN ---
Subjective Progress Note Date: 02/25/24 Principal diagnosis: Altered Mental Status/ Possible Seizure Ms. Pro is an 88-year-old female with history of atrial fibrillation (on Eliquis) congestive heart failure, hypertension, gout, and anxiety. She was admitted to [facility] on February 19 with symptoms of confusion as well as agitation. Chest x-ray revealed evidence of cardiomegaly with congestion and left-sided effusion of minimal nature. She suffered an episode of syncope 1 month ago. She has had a recent urinary tract infection but now as of February 17 her urinalysis was read is clean. She has recently been changed on some medications that she discontinued Xanax and is now been prescribed Seroquel as well as Zyprexa by psychiatry. When seen by neurology on February 18 she had recently been started on Ultram as well as Xanax with some declining function for about the past month which have been increased over the past 3 days. She has completed her urinary tract infection antibiotics on January 15. February 21 she appeared much slightly improved but had an episode of leg shaking while walking with physical therapy this was also while she was bending over and could have represented orthostatic process. She was started on Vimpat 50 mg twice daily at that time and an EEG was performed On February 22, which showed a background rhythm of 9 to 10 Hz alpha to low beta rhythm without reactivity or epileptiform discharges. On examination February 23, the family notes that the patient is more confused than yesterday. She did not sleep well last night and is tired this morning. She appears very sleepy and is difficult to arouse though this can be achieved. She is not oriented to hospital and not able to follow more than simple commands.. She was also started on Seroquel at 75 mg nightly to regulate her sleep.Her EEG from February 22 was read as negative, therefore her Vimpat was tapered with 50 mg every morning x 3 days On examination today February 05, 2024, she is sleepy and somewhat poorly responsive although she is arousable. She will moan and attempt to make answers to questions. She is able to follow some simple commands such as raise her arms however, she is not able to follow more complex commands such as show thumbs up. Her neurologic exam is grossly nonfocal. Her nurse did say that she slept well last night with the addition of Seroquel 75 mg nightly. She was able to eat her breakfast this morning. We will continue with the current plan of Seroquel 75 mg nightly and tapering the Vimpat. She has 2 more days of Vimpat including today. Neurology will continue to follow her and make recommendations as needed. Objective - Vital Signs Vital signs: Vital Signs Temp 98.3 F 02/25/24 07:50 Pulse 94 02/25/24 07:50 Resp 14 02/25/24 07:50 BP 121/77 02/25/24 07:50 Pulse Ox 97 02/25/24 07:50 FiO2 Intake & Output 02/24/24 02/25/24 02/25/24 18:59 06:59 18:59 Output Total 650 1000 Balance -650 -1000 Output: Urine 650 1000 Post Void Residual 0 Other: Voiding Method Diaper Diaper External Catheter External Catheter - Labs CBC & Chem 7: 02/25/24 03:59 02/24/24 05:04 Labs: Abnormal Lab Results - Last 24 Hours (Table) 02/25/24 Range/Units 03:59 RBC 3.94 L (4.10-5.20) X 10*6/uL MPV 12.4 H (9.5-12.2) FL Microbiology - Last 24 Hours (Table) 02/21/24 11:33 Blood Culture - Preliminary Blood
[2024-02-25 09:10] LABS: ALT 19 U/L (8-44); AST 30 U/L (13-35); Albumin 3.4 g/dL (3.8-4.9); Albumin/Globulin Ratio 1.55 Ratio (1.60-3.17); Alkaline Phosphatase 69 U/L (41-126); BUN/Creat Ratio 27.67 Ratio (12.00-20.00); Blood Urea Nitrogen 24.9 mg/dL (9.0-27.0); Calcium 9.7 mg/dL (8.7-10.3); Carbon Dioxide 21.4 mmol/L (21.6-31.8); Chloride 110 mmol/L (96-109); Globulin 2.2 g/dL (1.6-3.3); Glucose 89 mg/dL (70-110); Sodium 142 mmol/L (135-145); Total Bilirubin 0.5 mg/dL (0.3-1.2); Total Protein 5.6 g/dL (6.2-8.2)
--- NOTE | 2024-02-25 11:03 | P.PN ---
Subjective Progress Note Date: 02/25/24 Sandra Pro, is an 88-year-old female who was brought into [facility] emergency room, due to mental status changes confusion and agitation. She was evaluated in the emergency room vital examination on presentation revealed a temperature of 97.4 pulse 74 respiration 20 blood pressure 150/78 pulse ox 96% on room air Laboratory data reveals a white blood count of 7.2 hemoglobin 12.8 platelet count 228 BUN 37 creatinine 1.4 Testing in the emergency room revealed chest x-ray done in the emergency room revealed cardiomegaly with pulmonary vascular congestion and small left pleural effusion, CT scan of the brain without contrast done in the emergency room revealed no acute intracranial abnormality Patient was admitted to medical floor for further evaluation and treatment On 02/20/2024 patient remains confused in bed. Patient was evaluated by psychiatry services Zyprexa and Seroquel had been added. EEG also ordered per neurology. Current vital signs temp 97.7, heart 62, respiratory rate 132/78 with a pulse ox of 96% on room air On 02/21/2024 patient remains confused in bed more sleepy today. Patient's grand granddaughter at bedside. Per patient's granddaughter patient is less agitated since the initiation of Seroquel. Neurology and psychiatry services are following. Family requesting patient be started on antibiotics because she was getting treated for UTI outpatient. UA was negative but due to sudden change of mental status changes will start on Rocephin obtain urine culture. Blood culture also will be ordered. Will also start patient on gentle hydration due to poor oral intake. Current vital signs temp 98.1, heart rate 84, respiratory rate 20, blood pressure 124/89 with a pulse ox of 99% on room air On 02/22/2024 patient was seen and examined on the medical floor she is somnolent responsive answering few questions by yes or no, no new episodes of agitation today, she remains on Zyprexa 5 mg twice daily as needed and Seroquel 50 mg at bedtime and 25 mg in the morning, patient is also maintained on IV ceftriaxone for urinary tract infection On 02/23/2024 patient was seen and examined on the medical floor, she is more alert and oriented today there is no fever or chills no headache or dizziness no chest pain no shortness of breath no cough no nausea or vomiting no abdominal pain no diarrhea no urinary symptoms, sodium is elevated at 149 will change IV fluid to 0.45 at 75 cc/h, will do a trial of removing Caba catheter, MRI of the brain within normal limits discussed with patient and her family in details, EEG done today is still pending, will recheck in a.m. On 02/24/2024 patient remains on the medical floor she is alert remains confused. Patient nydia on fluid and IV Rocephin neurology and psychiatry services are following. PT and OT services consulted social work consulted for discharge planning. Patient denies chest pain or shortness of breath. Patient denies nausea vomiting or diarrhea. Patient denies any urinary burning or frequency On 02/25/2024 patient is resting comfortably in bed. Patient was started on prophylactic Vimpat per neurology services. DC planning in place to return to [facility] unit. At this time patient denies chest pain or shortness of breath. Patient denies nausea vomiting or diarrhea. Patient denies any urinary burning or frequency Objective - Vital Signs Vital signs: Vital Signs Temp 98.3 F 02/25/24 07:50 Pulse 94 02/25/24 07:50 Resp 14 02/25/24 07:50 BP 121/77 02/25/24 07:50 Pulse Ox 97 02/25/24 07:50 FiO2 Intake & Output 02/24/24 02/25/24 02/25/24 18:59 06:59 18:59 Output Total 650 1000 Balance -650 -1000 Output: Urine 650 1000 Post Void Residual 0 Other: Voiding Method Diaper Diaper Diaper External Catheter External Catheter External Catheter - Exam In general patient is alert, confused in no distress HEENT head normocephalic and atraumatic Neck is supple no JVD no goiter no lymphadenopathy no carotid bruit Chest examination is clear to auscultation no crackles no wheezing Cardiac exam reveals irregular heart sounds S1 and S2 with 3/6 systolic murmur in the left sternal border Abdomen is soft nontender no organomegaly with normal bowel sounds Extremity exam reveals no edema no cyanosis or clubbing Neurologica confused - Labs CBC & Chem 7: 02/25/24 03:59 02/25/24 03:59 Labs: Abnormal Lab Results - Last 24 Hours (Table) 02/25/24 02/25/24 Range/Units 03:59 03:59 RBC 3.94 L (4.10-5.20) X 10*6/uL MPV 12.4 H (9.5-12.2) FL Chloride 110 H (96-109) mmol/L Carbon Dioxide 21.4 L (21.6-31.8) mmol/L BUN/Creatinine Ratio 27.67 H (12.00-20.00) Ratio Total Protein 5.6 L (6.2-8.2) g/dL Albumin 3.4 L (3.8-4.9) g/dL Albumin/Globulin Ratio 1.55 L (1.60-3.17) Ratio Microbiology - Last 24 Hours (Table) 02/21/24 11:33 Blood Culture - Preliminary Blood Assessment and Plan Assessment: Acute confusion with agitation Recent admission with syncopal episode 1 month ago Recent urinary tract infection, resolved urine now is clear Underlying history of atrial fibrillation Underlying history of hypertension At this time patient was seen and examined Home medications reviewed and reordered Neurology consultation and psychiatry consultation requested Will follow closely recheck labs in the a.m. For DVT prophylaxis patient is on Eliquis
--- NOTE | 2024-02-26 09:06 | P.PN ---
Subjective Progress Note Date: 02/26/24 Principal diagnosis: Altered Mental Status with Leg Shaking gayatri Pro is an 88-year-old female with history of atrial fibrillation (on Eliquis) congestive heart failure, hypertension, gout, and anxiety. She was admitted to [facility] on February 19 with symptoms of confusion as well as agitation. Chest x-ray revealed evidence of cardiomegaly with congestion and left-sided effusion of minimal nature. She suffered an episode of syncope 1 month ago. She has had a recent urinary tract infection but now as of February 17 her urinalysis was read is clean. She has recently been changed on some medications that she discontinued Xanax and is now been prescribed Seroquel as well as Zyprexa by psychiatry. When seen by neurology on February 18 she had recently been started on Ultram as well as Xanax with some declining function for about the past month which have been increased over the past 3 days. She has completed her urinary tract infection antibiotics on January 15. February 21 she appeared much slightly improved but had an episode of leg shaking while walking with physical therapy this was also while she was bending over and could have represented orthostatic process. She was started on Vimpat 50 mg twice daily at that time and an EEG was performed On February 22, which showed a background rhythm of 9 to 10 Hz alpha to low beta rhythm without reactivity or epileptiform discharges. On examination February 23, the family notes that the patient is more confused than yesterday. She did not sleep well last night and is tired this morning. She appears very sleepy and is difficult to arouse though this can be achieved. She is not oriented to hospital and not able to follow more than simple commands.. She was also started on Seroquel at 75 mg nightly to regulate her sleep.Her EEG from February 22 was read as negative, therefore her Vimpat was tapered with 50 mg every morning x 3 days On examination February 25, 2024, she is sleepy and somewhat poorly responsive although she is arousable. She will moan and attempt to make answers to questions. She is able to follow some simple commands such as raise her arms however, she is not able to follow more complex commands such as show thumbs up. Her neurologic exam is grossly nonfocal. Her nurse did say that she slept well last night with the addition of Seroquel 75 mg nightly. She was able to eat her breakfast this morning. We will continue with the current plan of Seroquel 75 mg nightly and tapering the Vimpat. She has 2 more days of Vimpat including today. On the morning of February 26, 2024 the patient is again sleepy and difficult to arouse. However the nursing staff notes that she was awake significantly last night. She did receive her dose of 75 mg Seroquel and slept well. However, again, the patient is somewhat difficult to arouse though she grimaces and withdraws all 4 extremities and equal manner and does not appear to have any evidence of facial droop. I would recommend continuing with her Seroquel 75 mg nightly and she continues on a Vimpat taper at this time. Neurology will continue to follow her but likely will be on an intermittent basis from this point forward. Objective - Vital Signs Vital signs: Vital Signs Temp 98.8 F 02/26/24 04:50 Pulse 91 02/26/24 04:50 Resp 18 02/26/24 04:50 BP 125/76 02/26/24 04:50 Pulse Ox 94 L 02/26/24 04:50 FiO2 Intake & Output 02/25/24 02/26/24 02/26/24 18:59 06:59 18:59 Output Total 1000 650 Balance -1000 -650 Weight 70.307 kg Output: Urine 1000 650 Other: Voiding Method Diaper Diaper External Catheter External Catheter - Labs CBC & Chem 7: 02/25/24 03:59 02/25/24 03:59 Labs: Abnormal Lab Results - Last 24 Hours (Table) 02/25/24 Range/Units 03:59 Chloride 110 H (96-109) mmol/L Carbon Dioxide 21.4 L (21.6-31.8) mmol/L BUN/Creatinine Ratio 27.67 H (12.00-20.00) Ratio Total Protein 5.6 L (6.2-8.2) g/dL Albumin 3.4 L (3.8-4.9) g/dL Albumin/Globulin Ratio 1.55 L (1.60-3.17) Ratio
[2024-02-26 10:37] LABS: Basophils # (A) 0.05 X 10*3/uL (0.00-0.10); Basophils % (A) 0.6 %; Eosinophils # (A) 0.43 X 10*3/uL (0.04-0.35); Eosinophils % (A) 5.3 %; HCT 38.5 % (37.2-46.3); Lymphocytes # (A) 2.07 X 10*3/uL (0.90-5.00); Lymphocytes % (A) 25.4 %; MCH 30.3 pg (27.0-32.0); MCHC 31.2 g/dL (32.0-37.0); MCV 97.2 FL (80.0-97.0); Mean Platelet Volume 12.9 FL (9.5-12.2); Monocytes # (A) 0.88 X 10*3/uL (0.20-1.00); Monocytes % (A) 10.8 %; NRBC Per 100 WBC 0 X 10*3/uL (0.00-0.01); Neutrophils # (A) 4.68 X 10*3/uL (1.80-7.70); Neutrophils % (A) 57.4 %; Platelet Count 209 X 10*3/uL (140-440); RBC 3.96 X 10*6/uL (4.10-5.20); RDW 13.8 % (11.5-14.5); WBC 8.15 X 10*3/uL (4.50-10.00)
--- NOTE | 2024-02-26 10:58 | P.PN ---
Subjective Progress Note Date: 02/26/24 Sandra Pro, is an 88-year-old female who was brought into [facility] emergency room, due to mental status changes confusion and agitation. She was evaluated in the emergency room vital examination on presentation revealed a temperature of 97.4 pulse 74 respiration 20 blood pressure 150/78 pulse ox 96% on room air Laboratory data reveals a white blood count of 7.2 hemoglobin 12.8 platelet count 228 BUN 37 creatinine 1.4 Testing in the emergency room revealed chest x-ray done in the emergency room revealed cardiomegaly with pulmonary vascular congestion and small left pleural effusion, CT scan of the brain without contrast done in the emergency room revealed no acute intracranial abnormality Patient was admitted to medical floor for further evaluation and treatment On 02/20/2024 patient remains confused in bed. Patient was evaluated by psychiatry services Zyprexa and Seroquel had been added. EEG also ordered per neurology. Current vital signs temp 97.7, heart 62, respiratory rate 132/78 with a pulse ox of 96% on room air On 02/21/2024 patient remains confused in bed more sleepy today. Patient's grand granddaughter at bedside. Per patient's granddaughter patient is less agitated since the initiation of Seroquel. Neurology and psychiatry services are following. Family requesting patient be started on antibiotics because she was getting treated for UTI outpatient. UA was negative but due to sudden change of mental status changes will start on Rocephin obtain urine culture. Blood culture also will be ordered. Will also start patient on gentle hydration due to poor oral intake. Current vital signs temp 98.1, heart rate 84, respiratory rate 20, blood pressure 124/89 with a pulse ox of 99% on room air On 02/22/2024 patient was seen and examined on the medical floor she is somnolent responsive answering few questions by yes or no, no new episodes of agitation today, she remains on Zyprexa 5 mg twice daily as needed and Seroquel 50 mg at bedtime and 25 mg in the morning, patient is also maintained on IV ceftriaxone for urinary tract infection On 02/23/2024 patient was seen and examined on the medical floor, she is more alert and oriented today there is no fever or chills no headache or dizziness no chest pain no shortness of breath no cough no nausea or vomiting no abdominal pain no diarrhea no urinary symptoms, sodium is elevated at 149 will change IV fluid to 0.45 at 75 cc/h, will do a trial of removing Caba catheter, MRI of the brain within normal limits discussed with patient and her family in details, EEG done today is still pending, will recheck in a.m. On 02/24/2024 patient remains on the medical floor she is alert remains confused. Patient nydia on fluid and IV Rocephin neurology and psychiatry services are following. PT and OT services consulted social work consulted for discharge planning. Patient denies chest pain or shortness of breath. Patient denies nausea vomiting or diarrhea. Patient denies any urinary burning or frequency On 02/25/2024 patient is resting comfortably in bed. Patient was started on prophylactic Vimpat per neurology services. DC planning in place to return to [facility]. At this time patient denies chest pain or shortness of breath. Patient denies nausea vomiting or diarrhea. Patient denies any urinary burning or frequency On 02/26/2024 patient was seen and examined on the medical floor she is alert and oriented x 3 in no apparent distress she is answering questions appropriately she ate part of her breakfast this morning there is no fever or chills no headache or dizziness no chest pain no shortness of breath no cough no nausea or vomiting no abdominal pain no diarrhea and no urinary symptoms. Objective - Vital Signs Vital signs: Vital Signs Temp 98.8 F 02/26/24 04:50 Pulse 91 02/26/24 04:50 Resp 18 02/26/24 04:50 BP 125/76 02/26/24 04:50 Pulse Ox 94 L 02/26/24 04:50 FiO2 Intake & Output 02/25/24 02/26/24 02/26/24 18:59 06:59 18:59 Output Total 1000 650 Balance -1000 -650 Weight 70.307 kg Output: Urine 1000 650 Other: Voiding Method Diaper Diaper External Catheter External Catheter - Exam In general patient is alert, confused in no distress HEENT head normocephalic and atraumatic Neck is supple no JVD no goiter no lymphadenopathy no carotid bruit Chest examination is clear to auscultation no crackles no wheezing Cardiac exam reveals irregular heart sounds S1 and S2 with 3/6 systolic murmur in the left sternal border Abdomen is soft nontender no organomegaly with normal bowel sounds Extremity exam reveals no edema no cyanosis or clubbing Neurologica confused - Labs CBC & Chem 7: 02/26/24 05:08 02/25/24 03:59 Assessment and Plan Assessment: Acute confusion with agitation Recent admission with syncopal episode 1 month ago Recent urinary tract infection, resolved urine now is clear Underlying history of atrial fibrillation Underlying history of hypertension At this time patient was seen and examined Home medications reviewed and reordered Neurology consultation and psychiatry consultation requested Will follow closely recheck labs in the a.m. For DVT prophylaxis patient is on Eliquis
[2024-02-26 11:59] LABS: ALT 18 U/L (8-44); AST 32 U/L (13-35); Albumin 3.3 g/dL (3.8-4.9); Albumin/Globulin Ratio 1.57 Ratio (1.60-3.17); Alkaline Phosphatase 71 U/L (41-126); BUN/Creat Ratio 24.67 Ratio (12.00-20.00); Blood Urea Nitrogen 22.2 mg/dL (9.0-27.0); Calcium 9.5 mg/dL (8.7-10.3); Carbon Dioxide 18.7 mmol/L (21.6-31.8); Chloride 106 mmol/L (96-109); Globulin 2.1 g/dL (1.6-3.3); Glucose 87 mg/dL (70-110); Sodium 140 mmol/L (135-145); Total Bilirubin 0.5 mg/dL (0.3-1.2); Total Protein 5.4 g/dL (6.2-8.2)
--- NOTE | 2024-02-27 10:13 | P.PN ---
Subjective Progress Note Date: 02/27/24 Sandra Pro, is an 88-year-old female who was brought into [facility] emergency room, due to mental status changes confusion and agitation. She was evaluated in the emergency room vital examination on presentation revealed a temperature of 97.4 pulse 74 respiration 20 blood pressure 150/78 pulse ox 96% on room air Laboratory data reveals a white blood count of 7.2 hemoglobin 12.8 platelet count 228 BUN 37 creatinine 1.4 Testing in the emergency room revealed chest x-ray done in the emergency room revealed cardiomegaly with pulmonary vascular congestion and small left pleural effusion, CT scan of the brain without contrast done in the emergency room revealed no acute intracranial abnormality Patient was admitted to medical floor for further evaluation and treatment On 02/20/2024 patient remains confused in bed. Patient was evaluated by psychiatry services Zyprexa and Seroquel had been added. EEG also ordered per neurology. Current vital signs temp 97.7, heart 62, respiratory rate 132/78 with a pulse ox of 96% on room air On 02/21/2024 patient remains confused in bed more sleepy today. Patient's grand granddaughter at bedside. Per patient's granddaughter patient is less agitated since the initiation of Seroquel. Neurology and psychiatry services are following. Family requesting patient be started on antibiotics because she was getting treated for UTI outpatient. UA was negative but due to sudden change of mental status changes will start on Rocephin obtain urine culture. Blood culture also will be ordered. Will also start patient on gentle hydration due to poor oral intake. Current vital signs temp 98.1, heart rate 84, respiratory rate 20, blood pressure 124/89 with a pulse ox of 99% on room air On 02/22/2024 patient was seen and examined on the medical floor she is somnolent responsive answering few questions by yes or no, no new episodes of agitation today, she remains on Zyprexa 5 mg twice daily as needed and Seroquel 50 mg at bedtime and 25 mg in the morning, patient is also maintained on IV ceftriaxone for urinary tract infection On 02/23/2024 patient was seen and examined on the medical floor, she is more alert and oriented today there is no fever or chills no headache or dizziness no chest pain no shortness of breath no cough no nausea or vomiting no abdominal pain no diarrhea no urinary symptoms, sodium is elevated at 149 will change IV fluid to 0.45 at 75 cc/h, will do a trial of removing Caba catheter, MRI of the brain within normal limits discussed with patient and her family in details, EEG done today is still pending, will recheck in a.m. On 02/24/2024 patient remains on the medical floor she is alert remains confused. Patient nydia on fluid and IV Rocephin neurology and psychiatry services are following. PT and OT services consulted social work consulted for discharge planning. Patient denies chest pain or shortness of breath. Patient denies nausea vomiting or diarrhea. Patient denies any urinary burning or frequency On 02/25/2024 patient is resting comfortably in bed. Patient was started on prophylactic Vimpat per neurology services. DC planning in place to return to [facility]. At this time patient denies chest pain or shortness of breath. Patient denies nausea vomiting or diarrhea. Patient denies any urinary burning or frequency On 02/26/2024 patient was seen and examined on the medical floor she is alert and oriented x 3 in no apparent distress she is answering questions appropriately she ate part of her breakfast this morning there is no fever or chills no headache or dizziness no chest pain no shortness of breath no cough no nausea or vomiting no abdominal pain no diarrhea and no urinary symptoms. On 02/27/2024 patient's more alert still confused resting comfortably in bed. Patient having low-grade temp of 99.9. Will order chest x-ray to rule out pneumonia. Patient has been on Rocephin for 5 hide 5 days will DC at this time and if patient starts having diarrhea test for C. difficile. Discharge planning in progress. At this time patient denies chest pain or shortness of breath. Patient denies nausea vomiting or diarrhea. Patient denies any urinary burning or frequency Objective - Vital Signs Vital signs: Vital Signs Temp 98.8 F 02/27/24 07:36 Pulse 120 H 02/27/24 07:36 Resp 16 02/27/24 07:36 BP 171/75 02/27/24 07:36 Pulse Ox 95 02/27/24 07:36 FiO2 Intake & Output 02/26/24 02/27/24 02/27/24 18:59 06:59 18:59 Intake Total 300 240 Output Total 1800 650 Balance -1500 -410 Intake: Oral 300 240 Output: Urine 1800 650 Other: Voiding Method Diaper Diaper External Catheter External Catheter # Bowel Movements 0 - Exam In general patient is alert, confused in no distress HEENT head normocephalic and atraumatic Neck is supple no JVD no goiter no lymphadenopathy no carotid bruit Chest examination is clear to auscultation no crackles no wheezing Cardiac exam reveals irregular heart sounds S1 and S2 with 3/6 systolic murmur in the left sternal border Abdomen is soft nontender no organomegaly with normal bowel sounds Extremity exam reveals no edema no cyanosis or clubbing Neurologica confused - Labs CBC & Chem 7: 02/26/24 05:08 02/26/24 05:08 Labs: Abnormal Lab Results - Last 24 Hours (Table) 02/26/24 02/26/24 Range/Units 05:08 05:08 RBC 3.96 L (4.10-5.20) X 10*6/uL MCV 97.2 H (80.0-97.0) FL MCHC 31.2 L (32.0-37.0) g/dL MPV 12.9 H (9.5-12.2) FL Eosinophils # 0.43 H (0.04-0.35) X 10*3/uL Carbon Dioxide 18.7 L (21.6-31.8) mmol/L Anion Gap 15.30 H (4.00-12.00) mmol/L BUN/Creatinine Ratio 24.67 H (12.00-20.00) Ratio Total Protein 5.4 L (6.2-8.2) g/dL Albumin 3.3 L (3.8-4.9) g/dL Albumin/Globulin Ratio 1.57 L (1.60-3.17) Ratio Microbiology - Last 24 Hours (Table) 02/21/24 11:33 Blood Culture - Final Blood Assessment and Plan Assessment: Acute confusion with agitation Recent admission with syncopal episode 1 month ago Recent urinary tract infection, resolved urine now is clear Underlying history of atrial fibrillation Underlying history of hypertension At this time patient was seen and examined Home medications reviewed and reordered Neurology consultation and psychiatry consultation requested Will follow closely recheck labs in the a.m. For DVT prophylaxis patient is on Eliquis
[2024-02-27 10:34] LABS: Basophils # (A) 0.04 X 10*3/uL (0.00-0.10); Basophils % (A) 0.5 %; Eosinophils % (A) 2.3 %; HGB 12.4 g/dL (12.0-15.0); Lymphocytes # (A) 1.54 X 10*3/uL (0.90-5.00); Lymphocytes % (A) 17.7 %; MCH 29.5 pg (27.0-32.0); MCV 95.2 FL (80.0-97.0); Mean Platelet Volume 12.3 FL (9.5-12.2); Monocytes # (A) 0.71 X 10*3/uL (0.20-1.00); Monocytes % (A) 8.2 %; NRBC Per 100 WBC 0 X 10*3/uL (0.00-0.01); Neutrophils # (A) 6.19 X 10*3/uL (1.80-7.70); Platelet Count 226 X 10*3/uL (140-440); RDW 13.8 % (11.5-14.5); WBC 8.71 X 10*3/uL (4.50-10.00)
[2024-02-27 10:50] LABS: ALT 22 U/L (8-44); AST 30 U/L (13-35); Albumin 3.6 g/dL (3.8-4.9); Albumin/Globulin Ratio 1.57 Ratio (1.60-3.17); Alkaline Phosphatase 80 U/L (41-126); BUN/Creat Ratio 21.55 Ratio (12.00-20.00); Blood Urea Nitrogen 23.7 mg/dL (9.0-27.0); Calcium 9.8 mg/dL (8.7-10.3); Carbon Dioxide 21.8 mmol/L (21.6-31.8); Chloride 108 mmol/L (96-109); Globulin 2.3 g/dL (1.6-3.3); Glucose 97 mg/dL (70-110); Potassium 3.6 mmol/L (3.5-5.5); Sodium 142 mmol/L (135-145); Total Bilirubin 0.5 mg/dL (0.3-1.2); Total Protein 5.9 g/dL (6.2-8.2)
[2024-02-28 09:35] LABS: Basophils # (A) 0.06 X 10*3/uL (0.00-0.10); Basophils % (A) 0.5 %; Eosinophils # (A) 0.26 X 10*3/uL (0.04-0.35); Eosinophils % (A) 2.2 %; HCT 39.8 % (37.2-46.3); HGB 12.7 g/dL (12.0-15.0); Lymphocytes # (A) 2.01 X 10*3/uL (0.90-5.00); Lymphocytes % (A) 17.3 %; MCH 30.7 pg (27.0-32.0); MCHC 31.9 g/dL (32.0-37.0); MCV 96.1 FL (80.0-97.0); Mean Platelet Volume 12.6 FL (9.5-12.2); Monocytes # (A) 1.11 X 10*3/uL (0.20-1.00); Monocytes % (A) 9.5 %; NRBC Per 100 WBC 0 X 10*3/uL (0.00-0.01); Neutrophils # (A) 8.16 X 10*3/uL (1.80-7.70); Neutrophils % (A) 70.2 %; Platelet Count 254 X 10*3/uL (140-440); RBC 4.14 X 10*6/uL (4.10-5.20); WBC 11.63 X 10*3/uL (4.50-10.00)
[2024-02-28 10:28] LABS: ALT 23 U/L (8-44); AST 32 U/L (13-35); Albumin 3.7 g/dL (3.8-4.9); Albumin/Globulin Ratio 1.54 Ratio (1.60-3.17); Alkaline Phosphatase 85 U/L (41-126); Blood Urea Nitrogen 19.1 mg/dL (9.0-27.0); Calcium 9.8 mg/dL (8.7-10.3); Carbon Dioxide 20.2 mmol/L (21.6-31.8); Chloride 106 mmol/L (96-109); Globulin 2.4 g/dL (1.6-3.3); Glucose 100 mg/dL (70-110); Potassium 3.4 mmol/L (3.5-5.5); Sodium 140 mmol/L (135-145); Total Bilirubin 0.7 mg/dL (0.3-1.2); Total Protein 6.1 g/dL (6.2-8.2)
--- NOTE | 2024-02-28 11:28 | P.PN ---
Subjective Progress Note Date: 02/28/24 Principal diagnosis: Altered mental status with leg shaking episode and history of urinary tract infection. gayatri Pro is an 88-year-old female with history of atrial fibrillation (on Eliquis) congestive heart failure, hypertension, gout, and anxiety. She was admitted to [facility] on February 19 with symptoms of confusion as well as agitation. Chest x-ray revealed evidence of cardiomegaly with congestion and left-sided effusion of minimal nature. She suffered an episode of syncope 1 month ago. She has had a recent urinary tract infection but now as of February 17 her urinalysis was read is clean. She has recently been changed on some medications that she discontinued Xanax and is now been prescribed Seroquel as well as Zyprexa by psychiatry. When seen by neurology on February 18 she had recently been started on Ultram as well as Xanax with some declining function for about the past month which have been increased over the past 3 days. She has completed her urinary tract infection antibiotics on January 15. February 21 she appeared much slightly improved but had an episode of leg shaking while walking with physical therapy this was also while she was bending over and could have represented orthostatic process. She was started on Vimpat 50 mg twice daily at that time and an EEG was performed On February 22, which showed a background rhythm of 9 to 10 Hz alpha to low beta rhythm without reactivity or epileptiform discharges. On examination February 23, the family notes that the patient is more confused than yesterday. She did not sleep well last night and is tired this morning. She appears very sleepy and is difficult to arouse though this can be achieved. She is not oriented to hospital and not able to follow more than simple commands.. She was also started on Seroquel at 75 mg nightly to regulate her sleep.Her EEG from February 22 was read as negative, therefore her Vimpat was tapered with 50 mg every morning x 3 days On examination February 25, 2024, she is sleepy and somewhat poorly responsive although she is arousable. She will moan and attempt to make answers to questions. She is able to follow some simple commands such as raise her arms however, she is not able to follow more complex commands such as show thumbs up. Her neurologic exam is grossly nonfocal. Her nurse did say that she slept well last night with the addition of Seroquel 75 mg nightly. She was able to eat her breakfast this morning. We will continue with the current plan of Seroquel 75 mg nightly and tapering the Vimpat. She has 2 more days of Vimpat including today. On the morning of February 26, 2024 the patient is again sleepy and difficult to arouse. However the nursing staff notes that she was awake significantly last night. She did receive her dose of 75 mg Seroquel and slept well. However, again, the patient is somewhat difficult to arouse though she grimaces and withdraws all 4 extremities and equal manner and does not appear to have any evidence of facial droop. I would recommend continuing with her Seroquel 75 mg nightly and she continues on a Vimpat taper at this time. Neurology will continue to follow her but likely will be on an intermittent basis from this point forward. When seen on February 27, 2024. The patient appears fairly sleepy but otherwise arousable. She is still not oriented to place but will follow some simple commands. She does not appear to have any evidence of facial droop and extremities appear to move symmetrically though her lower extremities only have strength approximately 3 out of 5. The patient appears to be be making very very gradual improvement and neurology will continue to follow on her on an intermittent basis. Objective - Vital Signs Vital signs: Vital Signs Temp 97.6 F 02/28/24 07:12 Pulse 109 H 02/28/24 07:12 Resp 15 02/28/24 07:12 BP 135/74 02/28/24 07:12 Pulse Ox 97 02/28/24 07:12 FiO2 Intake & Output 02/27/24 02/28/24 02/28/24 18:59 06:59 18:59 Intake Total 120 Output Total 600 700 Balance -600 -580 Intake: Oral 120 Output: Urine 600 700 Other: Voiding Method Diaper Diaper External Catheter External Catheter - Labs CBC & Chem 7: 02/28/24 04:41 02/28/24 04:41 Labs: Abnormal Lab Results - Last 24 Hours (Table) 02/28/24 02/28/24 Range/Units 04:41 04:41 WBC 11.63 H (4.50-10.00) X 10*3/uL MCHC 31.9 L (32.0-37.0) g/dL MPV 12.6 H (9.5-12.2) FL Neutrophils # 8.16 H (1.80-7.70) X 10*3/uL Monocytes # 1.11 H (0.20-1.00) X 10*3/uL Potassium 3.4 L (3.5-5.5) mmol/L Carbon Dioxide 20.2 L (21.6-31.8) mmol/L Anion Gap 13.80 H (4.00-12.00) mmol/L Est GFR (CKD-EPI) 55 L (>=60) Total Protein 6.1 L (6.2-8.2) g/dL Albumin 3.7 L (3.8-4.9) g/dL Albumin/Globulin Ratio 1.54 L (1.60-3.17) Ratio
[2024-02-28] MEDS ORDERED: Potassium Replacement Protocol 1 EACH MISC MISCELLANE PRN (11:37)
--- NOTE | 2024-02-28 11:40 | P.PN ---
Subjective Progress Note Date: 02/28/24 Sandra Pro, is an 88-year-old female who was brought into [facility] emergency room, due to mental status changes confusion and agitation. She was evaluated in the emergency room vital examination on presentation revealed a temperature of 97.4 pulse 74 respiration 20 blood pressure 150/78 pulse ox 96% on room air Laboratory data reveals a white blood count of 7.2 hemoglobin 12.8 platelet count 228 BUN 37 creatinine 1.4 Testing in the emergency room revealed chest x-ray done in the emergency room revealed cardiomegaly with pulmonary vascular congestion and small left pleural effusion, CT scan of the brain without contrast done in the emergency room revealed no acute intracranial abnormality Patient was admitted to medical floor for further evaluation and treatment On 02/20/2024 patient remains confused in bed. Patient was evaluated by psychiatry services Zyprexa and Seroquel had been added. EEG also ordered per neurology. Current vital signs temp 97.7, heart 62, respiratory rate 132/78 with a pulse ox of 96% on room air On 02/21/2024 patient remains confused in bed more sleepy today. Patient's grand granddaughter at bedside. Per patient's granddaughter patient is less agitated since the initiation of Seroquel. Neurology and psychiatry services are following. Family requesting patient be started on antibiotics because she was getting treated for UTI outpatient. UA was negative but due to sudden change of mental status changes will start on Rocephin obtain urine culture. Blood culture also will be ordered. Will also start patient on gentle hydration due to poor oral intake. Current vital signs temp 98.1, heart rate 84, respiratory rate 20, blood pressure 124/89 with a pulse ox of 99% on room air On 02/22/2024 patient was seen and examined on the medical floor she is somnolent responsive answering few questions by yes or no, no new episodes of agitation today, she remains on Zyprexa 5 mg twice daily as needed and Seroquel 50 mg at bedtime and 25 mg in the morning, patient is also maintained on IV ceftriaxone for urinary tract infection On 02/23/2024 patient was seen and examined on the medical floor, she is more alert and oriented today there is no fever or chills no headache or dizziness no chest pain no shortness of breath no cough no nausea or vomiting no abdominal pain no diarrhea no urinary symptoms, sodium is elevated at 149 will change IV fluid to 0.45 at 75 cc/h, will do a trial of removing Caba catheter, MRI of the brain within normal limits discussed with patient and her family in details, EEG done today is still pending, will recheck in a.m. On 02/24/2024 patient remains on the medical floor she is alert remains confused. Patient nydia on fluid and IV Rocephin neurology and psychiatry services are following. PT and OT services consulted social work consulted for discharge planning. Patient denies chest pain or shortness of breath. Patient denies nausea vomiting or diarrhea. Patient denies any urinary burning or frequency On 02/25/2024 patient is resting comfortably in bed. Patient was started on prophylactic Vimpat per neurology services. DC planning in place to return to [facility]. At this time patient denies chest pain or shortness of breath. Patient denies nausea vomiting or diarrhea. Patient denies any urinary burning or frequency On 02/26/2024 patient was seen and examined on the medical floor she is alert and oriented x 3 in no apparent distress she is answering questions appropriately she ate part of her breakfast this morning there is no fever or chills no headache or dizziness no chest pain no shortness of breath no cough no nausea or vomiting no abdominal pain no diarrhea and no urinary symptoms. On 02/27/2024 patient's more alert still confused resting comfortably in bed. Patient having low-grade temp of 99.9. Will order chest x-ray to rule out pneumonia. Patient has been on Rocephin for 5 hide 5 days will DC at this time and if patient starts having diarrhea test for C. difficile. Discharge planning in progress. At this time patient denies chest pain or shortness of breath. Patient denies nausea vomiting or diarrhea. Patient denies any urinary burning or frequency. On 02/28/2024 patient was seen and examined on the medical floor she is somnolent arousable, in no apparent distress, she answers few questions by yes and no and goes back to closing her eyes, she has low-grade fever of 99.2, white blood count is slightly more elevated today at 11.6, patient completed a course of ceftriaxone for urinary tract infection, currently she is not on any antibiotics, potassium is low at 3.4, will correct per protocol, yesterday a chest x-ray was ordered however family refused to have it completed, they will be counseled in regard to importance to rule out any infectious process in the chest in view of elevated white blood count and low-grade fever, and possible aspiration. Will continue to hold off antibiotics today, will check chest x-ray 1 view and check procalcitonin level, will continue to follow closely. Objective - Vital Signs Vital signs: Vital Signs Temp 97.6 F 02/28/24 07:12 Pulse 109 H 02/28/24 07:12 Resp 15 02/28/24 07:12 BP 135/74 02/28/24 07:12 Pulse Ox 97 02/28/24 07:12 FiO2 Intake & Output 02/27/24 02/28/24 02/28/24 18:59 06:59 18:59 Intake Total 120 Output Total 600 700 Balance -600 -580 Intake: Oral 120 Output: Urine 600 700 Other: Voiding Method Diaper Diaper External Catheter External Catheter - Exam In general patient is alert, confused in no distress HEENT head normocephalic and atraumatic Neck is supple no JVD no goiter no lymphadenopathy no carotid bruit Chest examination is clear to auscultation no crackles no wheezing Cardiac exam reveals irregular heart sounds S1 and S2 with 3/6 systolic murmur i n the left sternal border Abdomen is soft nontender no organomegaly with normal bowel sounds Extremity exam reveals no edema no cyanosis or clubbing Neurologica confused - Labs CBC & Chem 7: 02/28/24 04:41 02/28/24 04:41 Labs: Abnormal Lab Results - Last 24 Hours (Table) 02/27/24 02/27/24 Range/Units 07: 07:29 MCHC 31.0 L (32.0-37.0) g/dL MPV 12.3 H (9.5-12.2) FL Anion Gap 12.20 H (4.00-12.00) mmol/L Est GFR (CKD-EPI) 49 L (>=60) BUN/Creatinine Ratio 21.55 H (12.00-20.00) Ratio Total Protein 5.9 L (6.2-8.2) g/dL Albumin 3.6 L (3.8-4.9) g/dL Albumin/Globulin Ratio 1.57 L (1.60-3.17) Ratio Assessment and Plan Assessment: Acute confusion with agitation Recent admission with syncopal episode 1 month ago Recent urinary tract infection, resolved urine now is clear Underlying history of atrial fibrillation Underlying history of hypertension At this time patient was seen and examined Home medications reviewed and reordered Neurology consultation and psychiatry consultation requested Will follow closely recheck labs in the a.m. For DVT prophylaxis patient is on Eliquis
[2024-02-29 08:58] LABS: Basophils # (A) 0.03 X 10*3/uL (0.00-0.10); Basophils % (A) 0.3 %; Eosinophils # (A) 0.13 X 10*3/uL (0.04-0.35); Eosinophils % (A) 1.3 %; HCT 36.5 % (37.2-46.3); HGB 11.6 g/dL (12.0-15.0); Lymphocytes % (A) 13.9 %; MCH 30.6 pg (27.0-32.0); MCHC 31.8 g/dL (32.0-37.0); MCV 96.3 FL (80.0-97.0); Mean Platelet Volume 12.5 FL (9.5-12.2); Monocytes # (A) 1.03 X 10*3/uL (0.20-1.00); Monocytes % (A) 10.2 %; NRBC Per 100 WBC 0 X 10*3/uL (0.00-0.01); Neutrophils # (A) 7.44 X 10*3/uL (1.80-7.70); Platelet Count 244 X 10*3/uL (140-440); RBC 3.79 X 10*6/uL (4.10-5.20); RDW 14.1 % (11.5-14.5); WBC 10.06 X 10*3/uL (4.50-10.00)
--- NOTE | 2024-02-29 09:21 | P.PN ---
Subjective Progress Note Date: 02/29/24 Sandra Pro, is an 88-year-old female who was brought into [facility] emergency room, due to mental status changes confusion and agitation. She was evaluated in the emergency room vital examination on presentation revealed a temperature of 97.4 pulse 74 respiration 20 blood pressure 150/78 pulse ox 96% on room air Laboratory data reveals a white blood count of 7.2 hemoglobin 12.8 platelet count 228 BUN 37 creatinine 1.4 Testing in the emergency room revealed chest x-ray done in the emergency room revealed cardiomegaly with pulmonary vascular congestion and small left pleural effusion, CT scan of the brain without contrast done in the emergency room revealed no acute intracranial abnormality Patient was admitted to medical floor for further evaluation and treatment On 02/20/2024 patient remains confused in bed. Patient was evaluated by psychiatry services Zyprexa and Seroquel had been added. EEG also ordered per neurology. Current vital signs temp 97.7, heart 62, respiratory rate 132/78 with a pulse ox of 96% on room air On 02/21/2024 patient remains confused in bed more sleepy today. Patient's grand granddaughter at bedside. Per patient's granddaughter patient is less agitated since the initiation of Seroquel. Neurology and psychiatry services are following. Family requesting patient be started on antibiotics because she was getting treated for UTI outpatient. UA was negative but due to sudden change of mental status changes will start on Rocephin obtain urine culture. Blood culture also will be ordered. Will also start patient on gentle hydration due to poor oral intake. Current vital signs temp 98.1, heart rate 84, respiratory rate 20, blood pressure 124/89 with a pulse ox of 99% on room air On 02/22/2024 patient was seen and examined on the medical floor she is somnolent responsive answering few questions by yes or no, no new episodes of agitation today, she remains on Zyprexa 5 mg twice daily as needed and Seroquel 50 mg at bedtime and 25 mg in the morning, patient is also maintained on IV ceftriaxone for urinary tract infection On 02/23/2024 patient was seen and examined on the medical floor, she is more alert and oriented today there is no fever or chills no headache or dizziness no chest pain no shortness of breath no cough no nausea or vomiting no abdominal pain no diarrhea no urinary symptoms, sodium is elevated at 149 will change IV fluid to 0.45 at 75 cc/h, will do a trial of removing Caba catheter, MRI of the brain within normal limits discussed with patient and her family in details, EEG done today is still pending, will recheck in a.m. On 02/24/2024 patient remains on the medical floor she is alert remains confused. Patient nydia on fluid and IV Rocephin neurology and psychiatry services are following. PT and OT services consulted social work consulted for discharge planning. Patient denies chest pain or shortness of breath. Patient denies nausea vomiting or diarrhea. Patient denies any urinary burning or frequency On 02/25/2024 patient is resting comfortably in bed. Patient was started on prophylactic Vimpat per neurology services. DC planning in place to return to [facility]. At this time patient denies chest pain or shortness of breath. Patient denies nausea vomiting or diarrhea. Patient denies any urinary burning or frequency On 02/26/2024 patient was seen and examined on the medical floor she is alert and oriented x 3 in no apparent distress she is answering questions appropriately she ate part of her breakfast this morning there is no fever or chills no headache or dizziness no chest pain no shortness of breath no cough no nausea or vomiting no abdominal pain no diarrhea and no urinary symptoms. On 02/27/2024 patient's more alert still confused resting comfortably in bed. Patient having low-grade temp of 99.9. Will order chest x-ray to rule out pneumonia. Patient has been on Rocephin for 5 hide 5 days will DC at this time and if patient starts having diarrhea test for C. difficile. Discharge planning in progress. At this time patient denies chest pain or shortness of breath. Patient denies nausea vomiting or diarrhea. Patient denies any urinary burning or frequency. On 02/28/2024 patient was seen and examined on the medical floor she is somnolent arousable, in no apparent distress, she answers few questions by yes and no and goes back to closing her eyes, she has low-grade fever of 99.2, white blood count is slightly more elevated today at 11.6, patient completed a course of ceftriaxone for urinary tract infection, currently she is not on any antibiotics, potassium is low at 3.4, will correct per protocol, yesterday a chest x-ray was ordered however family refused to have it completed, they will be counseled in regard to importance to rule out any infectious process in the chest in view of elevated white blood count and low-grade fever, and possible aspiration. Will continue to hold off antibiotics today, will check chest x-ray 1 view and check procalcitonin level, will continue to follow closely. On 02/29/2024 patient is resting comfortably bed. Pro-calcitonin still pending. Patient having low-grade temps 99.6 will have infectious disease services.Patient denies chest pain or shortness breath. Patient denies nausea vomiting or diarrhea. Patient denies any urinary burning or frequency Objective - Vital Signs Vital signs: Vital Signs Temp 98.2 F 02/29/24 08:00 Pulse 103 H 02/29/24 08:00 Resp 17 02/29/24 08:00 BP 102/66 02/29/24 08:00 Pulse Ox 97 02/29/24 08:00 FiO2 Intake & Output 02/28/24 02/29/24 02/29/24 18:59 06:59 18:59 Intake Total 120 Output Total 200 Balance -80 Intake: Oral 120 Output: Urine 200 Other: Voiding Method External Catheter External Catheter # Bowel Movements 1 - Exam In general patient is alert, confused in no distress HEENT head normocephalic and atraumatic Neck is supple no JVD no goiter no lymphadenopathy no carotid bruit Chest examination is clear to auscultation no crackles no wheezing Cardiac exam reveals irregular heart sounds S1 and S2 with 3/6 systolic murmur in the left sternal border Abdomen is soft nontender no organomegaly with normal bowel sounds Extremity exam reveals no edema no cyanosis or clubbing Neurologica confused - Labs CBC & Chem 7: 02/29/24 05:25 02/28/24 04:41 Labs: Abnormal Lab Results - Last 24 Hours (Table) 02/28/24 02/28/24 Range/Units 04:41 04:41 WBC 11.63 H (4.50-10.00) X 10*3/uL MCHC 31.9 L (32.0-37.0) g/dL MPV 12.6 H (9.5-12.2) FL Neutrophils # 8.16 H (1.80-7.70) X 10*3/uL Monocytes # 1.11 H (0.20-1.00) X 10*3/uL Potassium 3.4 L (3.5-5.5) mmol/L Carbon Dioxide 20.2 L (21.6-31.8) mmol/L Anion Gap 13.80 H (4.00-12.00) mmol/L Est GFR (CKD-EPI) 55 L (>=60) Total Protein 6.1 L (6.2-8.2) g/dL Albumin 3.7 L (3.8-4.9) g/dL Albumin/Globulin Ratio 1.54 L (1.60-3.17) Ratio Assessment and Plan Assessment: Acute confusion with agitation Recent admission with syncopal episode 1 month ago Recent urinary tract infection, resolved urine now is clear Underlying history of atrial fibrillation Underlying history of hypertension At this time patient was seen and examined Home medications reviewed and reordered Neurology consultation and psychiatry consultation requested Will follow closely recheck labs in the a.m. For DVT prophylaxis patient is on Eliquis
[2024-02-29 09:28] LABS: ALT 18 U/L (8-44); AST 22 U/L (13-35); Albumin 3.4 g/dL (3.8-4.9); Albumin/Globulin Ratio 1.62 Ratio (1.60-3.17); Alkaline Phosphatase 73 U/L (41-126); BUN/Creat Ratio 21.22 Ratio (12.00-20.00); Blood Urea Nitrogen 19.1 mg/dL (9.0-27.0); Calcium 9.3 mg/dL (8.7-10.3); Carbon Dioxide 19.8 mmol/L (21.6-31.8); Chloride 105 mmol/L (96-109); Globulin 2.1 g/dL (1.6-3.3); Glucose 94 mg/dL (70-110); Potassium 3.5 mmol/L (3.5-5.5); Sodium 139 mmol/L (135-145); Total Bilirubin 0.7 mg/dL (0.3-1.2); Total Protein 5.5 g/dL (6.2-8.2)
--- NOTE | 2024-02-29 14:19 | XR ---
EXAMINATION TYPE: XR chest 1V portable DATE OF EXAM: 02/29/2024 2:09 PM COMPARISON: Previous chest radiograph, most recently dated 02/18/2024. CLINICAL INDICATION: Female, 88 years old with history of Fever/pneumonia; [facility] TECHNIQUE: XR chest 1V portable Frontal view of the chest. FINDINGS: Myocardial megaly. Small left pleural effusion. No sizable right pleural effusion. No pneumothorax. No acute osseous abnormality. IMPRESSION: 1. Small to moderate size left pleural effusion with adjacent left lower lobe consolidation which co uld reflect atelectasis and/or pneumonia. 2. Additional patchy right upper lobe opacity suspicious for multifocal pneumonia. [facility], , 02/29/2024 2:17 PM
[2024-02-29] MEDS: PIPERACILLIN-TAZOBACTAM 3.375 GM in SODIUM CHLORIDE 0.9% 100 ML IVPB SCH (16:02)
[2024-02-29 21:27] LABS: Appearance,Urine Cloudy (Clear); Bacteria,Urine Rare /hpf; Bilirubin,Urine Negative (Negative); Blood,Urine Moderate (Negative); Budding Yeast,Urine Rare /hpf; Color,Urine Yellow; Glucose,Urine (UA) Negative (Negative); Hyaline Casts,Urine 4 /lpf (0-2); Ketones,Urine Negative (Negative); Leukocyte Esterase,Urine Large (Negative); Mucus,Urine Rare /hpf; Nitrite,Urine Negative (Negative); PH, Urine 5.5 (5.0-8.0); Protein,Urine 1+ (Negative); RBC,Urine 95 /hpf (0-5); Specific Gravity,Urine 1.024 (1.001-1.035); Squamous Epithelial Cell,Urine 17 /hpf (0-4); Urobilinogen,Urine <2.0 mg/dL (<2.0); WBC,Urine 83 /hpf (0-5)
[2024-03-01 07:48] LABS: Basophils % (A) 0 %; Eosinophils # (A) 0.3 k/uL (0-0.7); Eosinophils % (A) 2 %; HCT 36.1 % (34.0-46.0); HGB 12.1 gm/dL (11.4-16.0); Lymphocytes # (A) 1.7 k/uL (1.0-4.8); Lymphocytes % (A) 15 %; MCH 30.9 pg (25.0-35.0); MCHC 33.4 g/dL (31.0-37.0); Mean Platelet Volume 9.8; Monocytes # (A) 0.8 k/uL (0-1.0); Monocytes % (A) 7 %; Neutrophils # (A) 8.3 k/uL (1.3-7.7); Neutrophils % (A) 73 %; Platelet Count 221 k/uL (150-450); WBC 11.3 k/uL (3.8-10.6)
[2024-03-01 07:50] LABS: MCV 92.6 fL (80.0-100.0)
[2024-03-01 07:56] LABS: ALT 19 U/L (4-34); AST 27 U/L (14-36); African American GFR (CKD) 51 (>60 ml/min/1.73 sqM); Albumin 2.9 g/dL (3.5-5.0); Albumin/Globulin Ratio 1.2; Alkaline Phosphatase 68 U/L (38-126); Anion Gap 10 mmol/L; Blood Urea Nitrogen 27 mg/dL (7-17); Calcium 9.1 mg/dL (8.4-10.2); Carbon Dioxide 19 mmol/L (22-30); Chloride 107 mmol/L (98-107); Globulin 2.4 g/dL; Glucose 109 mg/dL (74-99); Non-African American GFR(CKD) 44 (>60 ml/min/1.73 sqM); Potassium 3.6 mmol/L (3.5-5.1); Sodium 136 mmol/L (137-145); Total Bilirubin 0.9 mg/dL (0.2-1.3); Total Protein 5.3 g/dL (6.3-8.2)
--- NOTE | 2024-03-01 09:09 | P.CONS ---
History of Present Illness - Reason for Consult Consult date: 02/29/24 Fever Requesting physician: Kumar Bianchi - Chief Complaint Weakness x days - History of Present Illness Patient is a 88-year-old female with a past medical history significant for atrial fibrillation heart failure hypertension anxiety patient has been brought to the hospital about 10 days ago for evaluation of confusion and hallucination and increased weakness patient was afebrile initially however patient did spike a low-grade fever 100.5 degrees for night on 02/22/2024 and did have another low-grade fever of 99.9 F on 02/26/2024 patient did have a mildly elevated white count of 10.5 on 02/21/2024 and did have a white count of 11.63 yesterday at 10.6 today patient did have a normal creatinine and electrolytes has been normal liver enzymes are normal patient did have a UA on admission that has been negative and the culture were negative and did have a chest x-ray cardiomegaly likely pulmonary vascular congestion and small effusion patient has been evaluated by neurology and did have a CT scan of the brain subsequently MRI no acute intracranial process infectious disease was consulted today because of fever most information has been extracted from review of the chart talking with nursing staff as the patient was not able to provide any history no vomiting or diarrhea has been reported and the patient is overall decreased oral intake but medicine staff did not mention any significant choking on the food Review of Systems Positive points has been mentioned in HPI complete review could not be obtained because of his underlying mental status Past Medical History Past Medical History: Atrial Fibrillation, Heart Failure, Hypertension Additional Past Medical History / Comment(s): Gout approx 20 years ago History of Any Multi-Drug Resistant Organisms: None Reported Past Surgical History: No Surgical Hx Reported Past Anesthesia/Blood Transfusion Reactions: No Reported Reaction Past Psychological History: Anxiety Smoking Status: Never smoker Past Alcohol Use History: None Reported Past Drug Use History: None Reported Medications and Allergies Home Medications Medication Instructions Recorded Confirmed Type Apixaban [Eliquis] 5 mg PO BID@08,199905/16/21 02/18/24 History Aspirin EC [Ecotrin Low Dose] 81 mg PO DAILY@0800 05/16/21 02/18/24 History Furosemide [Lasix] 20 mg PO DAILY@0800 05/16/21 02/18/24 History Metoprolol Tartrate [Lopressor] 50 mg PO BID@08,199905/16/21 02/18/24 History Simvastatin [Zocor] 20 mg PO HS@199905/16/21 02/18/24 History allopurinoL [Zyloprim] 100 mg PO DAILY@0800 05/16/21 02/18/24 History hydrALAZINE HCL [Apresoline] 25 mg PO BID@08,199901/13/24 02/18/24 History ALPRAZolam [Xanax] 0.25 mg PO TID PRN 02/18/24 02/18/24 History Acetaminophen [Tylenol] 650 mg PO Q4H PRN MDD 4000mg 02/18/24 02/18/24 History Caldesene Powder 1 applic TOPICAL TID 02/18/24 02/18/24 History Carbamide Peroxide [Debrox Otic] 10 drops BOTH EARS WE@79902/18/24 02/18/24 History Ciprofloxacin HCl [Cipro] 500 mg PO BID@799,199902/18/24 02/18/24 History Ensure 1 can PO BID@799,199902/18/24 02/18/24 History Magnesium Hydroxide [Milk of 2,400 mg PO DAILY PRN 02/18/24 02/18/24 History Magnesia] Melatonin 3 mg PO HS PRN 02/18/24 02/18/24 History Menthol-Zinc Oxide Oint 1 applic TOPICAL TID 02/18/24 02/18/24 History [Calmoseptine Ointment] Ocusoft Lid Pad Scrub 1 pad BOTH EYES DAILY@0800 02/18/24 02/18/24 History Refresh Classic Pf 1.4-0.6% 2 drops BOTH EYES Q12H PRN 02/18/24 02/18/24 History Sennosides [Senokot] 8.6 mg PO BID@08,199902/18/24 02/18/24 History bisacodyL [Dulcolax] 10 mg RECTAL DAILY PRN 02/18/24 02/18/24 History traMADol HCL 25 mg PO Q8H PRN 02/18/24 02/18/24 History Allergies Allergy/AdvReac Type Severity Reaction Status Date / Time No Known Allergies Allergy Verified 02/18/24 17:19 Physical Exam Vitals: Vital Signs Temp Pulse Resp BP BP Pulse Ox 02/29/24 08:00 98.2 F 103 H 16 102/66 97 02/29/24 02:00 99.6 F 104 H 20 104/60 99 02/28/24 20:00 99.1 F 100 20 171/68 95 02/28/24 14:00 97.5 F L 105 H 16 127/72 95 Intake and Output 02/28/24 02/29/24 02/29/24 22:59 06:59 14:59 Intake Total 120 Output Total 200 Balance 120 -200 Intake: Oral 120 Output: Urine 200 Other: Voiding Method External Catheter External Catheter # Bowel Movements 0 1 GENERAL DESCRIPTION: Elderly female e lying in bed, no distress. No tachypnea or accessory muscle of respiration use. HEENT: Shows Pallor , no scleral icterus. Oral mucous membrane is dry. NECK: Trachea central, no thyromegaly. LUNGS: Unlabored breathing. Decreased breath sound at the base HEART: S1, S2, regular rate and rhythm. No loud murmur ABDOMEN: Soft, no tenderness EXTREMITIES: No edema of feet. SKIN: No rash, no masses palpable. NEUROLOGICAL: The patient is lethargic orientation could not determine Results CBC & Chem 7: 03/01/24 07:10 03/01/24 07:10 Labs: Abnormal Lab Results - Last 24 Hours (Table) 02/29/24 02/29/24 Range/Units 05:25 05:25 WBC 10.06 H (4.50-10.00) X 10*3/uL RBC 3.79 L (4.10-5.20) X 10*6/uL Hgb 11.6 L (12.0-15.0) g/dL Hct 36.5 L (37.2-46.3) % MCHC 31.8 L (32.0-37.0) g/dL MPV 12.5 H (9.5-12.2) FL Monocytes # 1.03 H (0.20-1.00) X 10*3/uL Carbon Dioxide 19.8 L (21.6-31.8) mmol/L Anion Gap 14.20 H (4.00-12.00) mmol/L BUN/Creatinine Ratio 21.22 H (12.00-20.00) Ratio Total Protein 5.5 L (6.2-8.2) g/dL Albumin 3.4 L (3.8-4.9) g/dL Assessment and Plan (1) Fever Current Visit: Yes Status: Acute Code(s): R50.9 - FEVER, UNSPECIFIED SNOMED Code(s): 532319879 (2) Leukocytosis Current Visit: Yes Status: Acute Code(s): D72.829 - ELEVATED WHITE BLOOD CELL COUNT, UNSPECIFIED SNOMED Code(s): 222025205 (3) Pneumonia Current Visit: Yes Status: Acute Code(s): J18.9 - PNEUMONIA, UNSPECIFIED ORGANISM SNOMED Code(s): 455949745 Plan: 1patient with a low-grade fever and elevated white count during this admission and this patient has been in the hospital for almost 10 days before initial evaluation on 02/29/2024 admitted for generalized weakness and confusion with a s ource possible pneumonia as as the patient was noticed to have a congested cough versus UTI. 2we will check a UA and culture. 3we will repeat a chest x-ray and check a procalcitonin level. 4blood cultures will be obtained and will empirically start the patient on Zosyn 3.375 g every 8 hour while waiting for the workup to be completed. We will follow on clinical condition and cultures to further adjust medication if needed Thank you for this consultation we will follow the patient along with you Dictation was produced using [employer] dictation software. please excuse any grammatical, word or spelling errors. Time with Patient: Greater than 30
--- NOTE | 2024-03-01 14:31 | P.CNPUL ---
History of Present Illness Consult date: 03/01/24 Requesting physician: Kumar Bianchi Reason for consult: abnormal CXR/CT Chief complaint: Altered mental status History of present illness: This is an 88-year-old female patient who was admitted 10 days ago for altered mental status. She has been followed by both neurology and psychiatry. She has been more awake and alert. Yesterday a chest x-ray showed small to moderate left pleural effusion with adjacent left lower lobe consolidation reflecting atelectasis versus pneumonia. Additional patchy right upper lobe opacity suspicious for multifocal pneumonia. We are consulted for the same. Currently sitting up in bed. Awake and alert. Somewhat of a poor historian. She is maintaining good O2 saturations up to 100% on room air. She is afebrile. Hemodynamically stable.. Hemoglobin 12.1. Platelets 221. Sodium 136. Potassium 3.6. Bicarb 19. BUN 27. Creatinine 1.14. Glucose 109. Blood and urine cultures negative. She had been initiated on Zosyn. Anticoagulated with Eliquis. Remains on oral diuretics. Review of Systems ROS unobtainable: due to mental status Past Medical History Past Medical History: Atrial Fibrillation, Heart Failure, Hypertension Additional Past Medical History / Comment(s): Gout approx 20 years ago History of Any Multi-Drug Resistant Organisms: None Reported Past Surgical History: No Surgical Hx Reported Past Anesthesia/Blood Transfusion Reactions: No Reported Reaction Past Psychological History: Anxiety Smoking Status: Never smoker Past Alcohol Use History: None Reported Past Drug Use History: None Reported Medications and Allergies Home Medications Medication Instructions Recorded Confirmed Type Apixaban [Eliquis] 5 mg PO BID@0805/16/21 02/18/24 History Aspirin EC [Ecotrin Low Dose] 81 mg PO DAILY@0805/16/21 02/18/24 History Furosemide [Lasix] 20 mg PO DAILY@79905/16/21 02/18/24 History Metoprolol Tartrate [Lopressor] 50 mg PO BID@05/16/21 02/18/24 History Simvastatin [Zocor] 20 mg PO HS@199905/16/21 02/18/24 History allopurinoL [Zyloprim] 100 mg PO DAILY@79905/16/21 02/18/24 History hydrALAZINE HCL [Apresoline] 25 mg PO BID@0800,199901/13/24 02/18/24 History ALPRAZolam [Xanax] 0.25 mg PO TID PRN 02/18/24 02/18/24 History Acetaminophen [Tylenol] 650 mg PO Q4H PRN MDD 4000mg 02/18/24 02/18/24 History Caldesene Powder 1 applic TOPICAL TID 02/18/24 02/18/24 History Carbamide Peroxide [Debrox Otic] 10 drops BOTH EARS WE@0800 02/18/24 02/18/24 History Ciprofloxacin HCl [Cipro] 500 mg PO BID@08,199902/18/24 02/18/24 History Ensure 1 can PO BID@799,199902/18/24 02/18/24 History Magnesium Hydroxide [Milk of 2,400 mg PO DAILY PRN 02/18/24 02/18/24 History Magnesia] Melatonin 3 mg PO HS PRN 02/18/24 02/18/24 History Menthol-Zinc Oxide Oint 1 applic TOPICAL TID 02/18/24 02/18/24 History [Calmoseptine Ointment] Ocusoft Lid Pad Scrub 1 pad BOTH EYES DAILY@0800 02/18/24 02/18/24 History Refresh Classic Pf 1.4-0.6% 2 drops BOTH EYES Q12H PRN 02/18/24 02/18/24 History Sennosides [Senokot] 8.6 mg PO BID@0800,199902/18/24 02/18/24 History bisacodyL [Dulcolax] 10 mg RECTAL DAILY PRN 02/18/24 02/18/24 History traMADol HCL 25 mg PO Q8H PRN 02/18/24 02/18/24 History Allergies Allergy/AdvReac Type Severity Reaction Status Date / Time No Known Allergies Allergy Verified 02/18/24 17:19 Physical Exam Vitals: Vital Signs Temp Pulse Resp BP BP Pulse Ox 03/01/24 07:26 98.1 F 101 H 16 138/77 100 03/01/24 02:00 98.3 F 118 H 18 112/70 97 02/29/24 19:45 98.2 F 108 H 17 146/79 98 Intake and Output 02/29/24 03/01/24 03/01/24 22:59 06:59 14:59 Output Total 2968 300 Balance -2968 -300 Output: Urine 2968 300 Uretheral (Caba) 1400 Other: Voiding Method Indwelling Catheter Indwelling Catheter # Bowel Movements 1 Weight 70.307 kg GENERAL EXAM: Alert, 88-year-old female, on room air, comfortable in no apparent distress. HEAD: Normocephalic. EYES: Normal reaction of pupils, equal size. NOSE: Clear with pink turbinates. THROAT: No erythema or exudates. NECK: No masses, no JVD. CHEST: No chest wall deformity. LUNGS: Equal air entry with bilateral scattered rhonchi. CVS: S1 and S2 normal with no audible murmur, regular rhythm. ABDOMEN: No hepatosplenomegaly, normal bowel sounds, no guarding or rigidity. SPINE: No scoliosis or deformity SKIN: No rashes CENTRAL NERVOUS SYSTEM: No focal deficits, tone is normal in all 4 extremities. EXTREMITIES: There is no peripheral edema. No clubbing, no cyanosis. Peripheral pulses are intact. Results - Laboratory Findings CBC and BMP: 03/01/24 07:10 03/01/24 07:10 PT/INR, D-dimer PT 11.7 sec (10.0-12.5) 02/18/24 17:47 INR 1.1 (<1.2) 02/18/24 17:47 Abnormal lab findings: Abnormal Labs 02/18/24 02/20/24 02/20/24 17:47 02:55 02:55 WBC 10.01 H RBC Hgb Hct MCV 97.1 H MCHC 31.5 L MPV Neutrophils # 7.92 H Monocytes # Eosinophils # Sodium Potassium Chloride Carbon Dioxide 20.3 L Anion Gap 15.70 H BUN 37 H 27.7 H Creatinine 1.40 H Est GFR (CKD-EPI) 49 L BUN/Creatinine Ratio 25.18 H Glucose C-Reactive Protein Total Protein 5.8 L Albumin 3.7 L Albumin/Globulin Ratio Urine Appearance Urine Protein Urine Blood Ur Leukocyte Esterase Urine RBC Urine WBC Urine WBC Clumps Ur Squamous Epith Cells Urine Bacteria Hyaline Casts Urine Mucus Urine Yeast (Budding) 02/21/24 02/21/24 02/22/24 05:26 05:26 07:27 WBC 10.55 H RBC Hgb Hct MCV 97.6 H MCHC 31.5 L MPV 12.3 H Neutrophils # Monocytes # 1.13 H Eosinophils # 0.01 L Sodium Potassium Chloride Carbon Dioxide 18.8 L Anion Gap 17.20 H BUN 34.6 H Creatinine 1.6 H 1.26 H Est GFR (CKD-EPI) 31 L BUN/Creatinine Ratio 21.62 H Glucose 133 H C-Reactive Protein Total Protein 6.1 L Albumin Albumin/Globulin Ratio Urine Appearance Urine Protein Urine Blood Ur Leukocyte Esterase Urine RBC Urine WBC Urine WBC Clumps Ur Squamous Epith Cells Urine Bacteria Hyaline Casts Urine Mucus Urine Yeast (Budding) 02/23/24 02/23/24 02/24/24 05:20 05:20 05:04 WBC RBC 3.68 L Hgb 11.3 L Hct 35.9 L MCV 97.6 H 104.1 H D MCHC 31.5 L 30.5 L MPV 12.5 H Neutrophils # Monocytes # Eosinophils # Sodium 149 H Potassium Chloride 114 H Carbon Dioxide Anion Gap BUN 36.4 H Creatinine Est GFR (CKD-EPI) 49 L BUN/Creatinine Ratio 33.09 H Glucose 112 H C-Reactive Protein Total Protein 5.3 L Albumin 3.3 L Albumin/Globulin Ratio Urine Appearance Urine Protein Urine Blood Ur Leukocyte Esterase Urine RBC Urine WBC Urine WBC Clumps Ur Squamous Epith Cells Urine Bacteria Hyaline Casts Urine Mucus Urine Yeast (Budding) 02/24/24 02/25/24 02/25/24 05:04 03:59 03:59 WBC RBC 3.94 L Hgb Hct MCV MCHC MPV 12.4 H Neutrophils # Monocytes # Eosinophils # Sodium Potassium 3.2 L Chloride 115 H 110 H Carbon Dioxide 18 L 21.4 L Anion Gap BUN 33 H Creatinine Est GFR (CKD-EPI) BUN/Creatinine Ratio 27.67 H Glucose C-Reactive Protein Total Protein 5.4 L 5.6 L Albumin 2.9 L 3.4 L Albumin/Globulin Ratio 1.55 L Urine Appearance Urine Protein Urine Blood Ur Leukocyte Esterase Urine RBC Urine WBC Urine WBC Clumps Ur Squamous Epith Cells Urine Bacteria Hyaline Casts Urine Mucus Urine Yeast (Budding) 02/26/24 02/26/24 02/27/24 05:08 05:08 07:29 WBC RBC 3.96 L Hgb Hct MCV 97.2 H MCHC 31.2 L 31.0 L MPV 12.9 H 12.3 H Neutrophils # Monocytes # Eosinophils # 0.43 H Sodium Potassium Chloride Carbon Dioxide 18.7 L Anion Gap 15.30 H BUN Creatinine Est GFR (CKD-EPI) BUN/Creatinine Ratio 24.67 H Glucose C-Reactive Protein Total Protein 5.4 L Albumin 3.3 L Albumin/Globulin Ratio 1.57 L Urine Appearance Urine Protein Urine Blood Ur Leukocyte Esterase Urine RBC Urine WBC Urine WBC Clumps Ur Squamous Epith Cells Urine Bacteria Hyaline Casts Urine Mucus Urine Yeast (Budding) 02/27/24 02/28/24 02/28/24 07:29 04:41 04:41 WBC 11.63 H RBC Hgb Hct MCV MCHC 31.9 L MPV 12.6 H Neutrophils # 8.16 H Monocytes # 1.11 H Eosinophils # Sodium Potassium 3.4 L Chloride Carbon Dioxide 20.2 L Anion Gap 12.20 H 13.80 H BUN Creatinine Est GFR (CKD-EPI) 49 L 55 L BUN/Creatinine Ratio 21.55 H Glucose C-Reactive Protein Total Protein 5.9 L 6.1 L Albumin 3.6 L 3.7 L Albumin/Globulin Ratio 1.57 L 1.54 L Urine Appearance Urine Protein Urine Blood Ur Leukocyte Esterase Urine RBC Urine WBC Urine WBC Clumps Ur Squamous Epith Cells Urine Bacteria Hyaline Casts Urine Mucus Urine Yeast (Budding) 02/29/24 02/29/24 02/29/24 05:25 05:25 05:25 WBC 10.06 H RBC 3.79 L Hgb 11.6 L Hct 36.5 L MCV MCHC 31.8 L MPV 12.5 H Neutrophils # Monocytes # 1.03 H Eosinophils # Sodium Potassium Chloride Carbon Dioxide 19.8 L Anion Gap 14.20 H BUN Creatinine Est GFR (CKD-EPI) BUN/Creatinine Ratio 21.22 H Glucose C-Reactive Protein 4.80 H Total Protein 5.5 L Albumin 3.4 L Albumin/Globulin Ratio Urine Appearance Urine Protein Urine Blood Ur Leukocyte Esterase Urine RBC Urine WBC Urine WBC Clumps Ur Squamous Epith Cells Urine Bacteria Hyaline Casts Urine Mucus Urine Yeast (Budding) 02/29/24 03/01/24 03/01/24 20:16 07:10 07:10 WBC 11.3 H RBC Hgb Hct MCV MCHC MPV Neutrophils # 8.3 H Monocytes # Eosinophils # Sodium 136 L Potassium Chloride Carbon Dioxide 19 L Anion Gap BUN 27 H Creatinine 1.14 H Est GFR (CKD-EPI) BUN/Creatinine Ratio Glucose 109 H C-Reactive Protein Total Protein 5.3 L Albumin 2.9 L Albumin/Globulin Ratio Urine Appearance Cloudy H Urine Protein 1+ H Urine Blood Moderate H Ur Leukocyte Esterase Large H Urine RBC 95 H Urine WBC 83 H Urine WBC Clumps Occasional H Ur Squamous Epith Cells 17 H Urine Bacteria Rare H Hyaline Casts 4 H Urine Mucus Rare H Urine Yeast (Budding) Rare H - Diagnostic Findings Chest x-ray: image reviewed Assessment and Plan Assessment: Dyspnea secondary to small to moderate left pleural effusion with adjacent consolidation and possible patchy right upper lobe opacity suspicious for pneumonia, suspect aspiration Altered mental status with agitation being followed by neurology and psychiatry History of atrial fibrillation, anticoagulated with Eliquis Hypertension Recent urinary tract infection Recent syncopal episode Plan: The patient was seen and evaluated Chest x-ray, labs and medications reviewed Currently stable and on room air Aspiration precautions Speech therapy consulted Currently on Zosyn We will continue to follow and make further recommendations based on her clinical status I have personally seen and examined the patient, performed the documentation and the assessment and plan as written. Number of minutes spent on the visit: 20 Dictation was produced using [employer] dictation software. Please excuse any grammatical, word or spelling errors.
--- NOTE | 2024-03-01 17:04 | P.PN ---
Subjective Progress Note Date: 03/01/24 I am seeing the patient as follow-up and last time seen her was a week ago. Please refer to Dr. Hunter's notes for further details. It seems the patient continues to be confused, sleepy and making very very gradual improvement per Dr. Hunter notes. It seems the daughter wants her to be under hospice. She had total of two EEG which were negative for seizures and had MRI Brain and is negative for acute process. Objective - Vital Signs Vital signs: Vital Signs Temp 98.2 F 03/01/24 14:00 Pulse 57 L 03/01/24 14:00 Resp 16 03/01/24 14:00 BP 121/71 03/01/24 14:00 Pulse Ox 94 L 03/01/24 14:00 FiO2 Intake & Output 02/29/24 03/01/24 03/01/24 18:59 06:59 18:59 Intake Total 355 Output Total 2968 300 375 Balance -2613 -300 -375 Weight 70.307 kg Intake: Oral 355 Output: Urine 2968 300 375 Uretheral (Caba) 1400 Other: Voiding Method External Catheter Indwelling Catheter Indwelling Catheter # Bowel Movements 1 - Exam General: Lying in bed and does not appear in acute distress. Neuro: Is moderate to severe drowsy but is awakeable to voice. With multiple questioning she is oriented to self. She stated the year is 2026. She is following simple commands (showing thumbs up, smiling, wiggling toes). - Labs CBC & Chem 7: 03/01/24 07:10 03/01/24 07:10 Labs: Abnormal Lab Results - Last 24 Hours (Table) 02/29/24 02/29/24 03/01/24 Range/Units 05:25 20:16 07:10 WBC 11.3 H (3.8-10.6) k/uL Neutrophils # 8.3 H (1.3-7.7) k/uL Sodium (137-145) mmol/L Carbon Dioxide (22-30) mmol/L BUN (7-17) mg/dL Creatinine (0.52-1.04) mg/dL Glucose (74-99) mg/dL C-Reactive Protein 4.80 H (0.00-0.80) mg/dL Total Protein (6.3-8.2) g/dL Albumin (3.5-5.0) g/dL Urine Appearance Cloudy H (Clear) Urine Protein 1+ H (Negative) Urine Blood Moderate H (Negative) Ur Leukocyte Esterase Large H (Negative) Urine RBC 95 H (0-5) /hpf Urine WBC 83 H (0-5) /hpf Urine WBC Clumps Occasional H (None) /hpf Ur Squamous Epith Cells 17 H (0-4) /hpf Urine Bacteria Rare H (None) /hpf Hyaline Casts 4 H (0-2) /lpf Urine Mucus Rare H (None) /hpf Urine Yeast (Budding) Rare H (None) /hpf 03/01/24 Range/Units 07:10 WBC (3.8-10.6) k/uL Neutrophils # (1.3-7.7) k/uL Sodium 136 L (137-145) mmol/L Carbon Dioxide 19 L (22-30) mmol/L BUN 27 H (7-17) mg/dL Creatinine 1.14 H (0.52-1.04) mg/dL Glucose 109 H (74-99) mg/dL C-Reactive Protein (0.00-0.80) mg/dL Total Protein 5.3 L (6.3-8.2) g/dL Albumin 2.9 L (3.5-5.0) g/dL Urine Appearance (Clear) Urine Protein (Negative) Urine Blood (Negative) Ur Leukocyte Esterase (Negative) Urine RBC (0-5) /hpf Urine WBC (0-5) /hpf Urine WBC Clumps (None) /hpf Ur Squamous Epith Cells (0-4) /hpf Urine Bacteria (None) /hpf Hyaline Casts (0-2) /lpf Urine Mucus (None) /hpf Urine Yeast (Budding) (None) /hpf Microbiology - Last 24 Hours (Table) 02/29/24 05:43 Stool Culture - Preliminary Stool Assessment and Plan Assessment: This is an 88-year-old woman who presents to the emergency department from her nursing facility because of hallucination, confusion agitation over the past 3 days. It seems that she was declining over the past 1 month. She had a recent urinary tract infection. She had a syncopal episode and my colleague felt was due to vasovagal versus orthostatic as well as had urinary tract infection. Altered mental status and it seems due to metabolic encephalopathy. Recent Episode of leg shaking with severe confusion unsure if patient had seizure-like activity especially with her underlying history of dementia---making very subtle improvement during this admission. Had two EEG which were negative for seizure or discharges. MRI Brain is negative for acute process. Acute kidney insufficiency Recent syncopal episode and my colleague felt was due to vasovagal versus orthostatic Recent acute urinary tract infection Reported history of disturbance and it was felt also by my colleague possible mild cognitive impairment. 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 Atrial fibrillation on Eliquis Hypertension Plan: Start the patient empirically on Vimpat 50 mg twice daily on 02/21/2024. I will avoid Keppra because of side effects of mood irritability especially with the patient restlessness. Recommend neuropsych evaluation as an outpatient Psychiatry is consulted and they started the patient on Zyprexa 5 mg 1 tablet twice daily as needed for agitation. Is on Seroquel 75mg qhs. Defer the rest of the medical management to primary other specialist. The daughter wanted the patient to be hospice. The plan is discussed with patient's nurse. Time with Patient: Less than 30
--- NOTE | 2024-03-01 18:04 | P.PN ---
Subjective Progress Note Date: 03/01/24 Sandra Pro, is an 88-year-old female who was brought into [facility] emergency room, due to mental status changes confusion and agitation. She was evaluated in the emergency room vital examination on presentation revealed a temperature of 97.4 pulse 74 respiration 20 blood pressure 150/78 pulse ox 96% on room air Laboratory data reveals a white blood count of 7.2 hemoglobin 12.8 platelet count 228 BUN 37 creatinine 1.4 Testing in the emergency room revealed chest x-ray done in the emergency room revealed cardiomegaly with pulmonary vascular congestion and small left pleural effusion, CT scan of the brain without contrast done in the emergency room revealed no acute intracranial abnormality Patient was admitted to medical floor for further evaluation and treatment On 02/20/2024 patient remains confused in bed. Patient was evaluated by psychiatry services Zyprexa and Seroquel had been added. EEG also ordered per neurology. Current vital signs temp 97.7, heart 62, respiratory rate 132/78 with a pulse ox of 96% on room air On 02/21/2024 patient remains confused in bed more sleepy today. Patient's grand granddaughter at bedside. Per patient's granddaughter patient is less agitated since the initiation of Seroquel. Neurology and psychiatry services are following. Family requesting patient be started on antibiotics because she was getting treated for UTI outpatient. UA was negative but due to sudden change of mental status changes will start on Rocephin obtain urine culture. Blood culture also will be ordered. Will also start patient on gentle hydration due to poor oral intake. Current vital signs temp 98.1, heart rate 84, respiratory rate 20, blood pressure 124/89 with a pulse ox of 99% on room air On 02/22/2024 patient was seen and examined on the medical floor she is somnolent responsive answering few questions by yes or no, no new episodes of agitation today, she remains on Zyprexa 5 mg twice daily as needed and Seroquel 50 mg at bedtime and 25 mg in the morning, patient is also maintained on IV ceftriaxone for urinary tract infection On 02/23/2024 patient was seen and examined on the medical floor, she is more alert and oriented today there is no fever or chills no headache or dizziness no chest pain no shortness of breath no cough no nausea or vomiting no abdominal pain no diarrhea no urinary symptoms, sodium is elevated at 149 will change IV fluid to 0.45 at 75 cc/h, will do a trial of removing Caba catheter, MRI of the brain within normal limits discussed with patient and her family in details, EEG done today is still pending, will recheck in a.m. On 02/24/2024 patient remains on the medical floor she is alert remains confused. Patient nydia on fluid and IV Rocephin neurology and psychiatry services are following. PT and OT services consulted social work consulted for discharge planning. Patient denies chest pain or shortness of breath. Patient denies nausea vomiting or diarrhea. Patient denies any urinary burning or frequency On 02/25/2024 patient is resting comfortably in bed. Patient was started on prophylactic Vimpat per neurology services. DC planning in place to return to [facility]. At this time patient denies chest pain or shortness of breath. Patient denies nausea vomiting or diarrhea. Patient denies any urinary burning or frequency On 02/26/2024 patient was seen and examined on the medical floor she is alert and oriented x 3 in no apparent distress she is answering questions appropriately she ate part of her breakfast this morning there is no fever or chills no headache or dizziness no chest pain no shortness of breath no cough no nausea or vomiting no abdominal pain no diarrhea and no urinary symptoms. On 02/27/2024 patient's more alert still confused resting comfortably in bed. Patient having low-grade temp of 99.9. Will order chest x-ray to rule out pneumonia. Patient has been on Rocephin for 5 hide 5 days will DC at this time and if patient starts having diarrhea test for C. difficile. Discharge planning in progress. At this time patient denies chest pain or shortness of breath. Patient denies nausea vomiting or diarrhea. Patient denies any urinary burning or frequency. On 02/28/2024 patient was seen and examined on the medical floor she is somnolent arousable, in no apparent distress, she answers few questions by yes and no and goes back to closing her eyes, she has low-grade fever of 99.2, white blood count is slightly more elevated today at 11.6, patient completed a course of ceftriaxone for urinary tract infection, currently she is not on any antibiotics, potassium is low at 3.4, will correct per protocol, yesterday a chest x-ray was ordered however family refused to have it completed, they will be counseled in regard to importance to rule out any infectious process in the chest in view of elevated white blood count and low-grade fever, and possible aspiration. Will continue to hold off antibiotics today, will check chest x-ray 1 view and check procalcitonin level, will continue to follow closely. On 02/29/2024 patient is resting comfortably bed. Pro-calcitonin still pending. Patient having low-grade temps 99.6 will have infectious disease services.Patient denies chest pain or shortness breath. Patient denies nausea vomiting or diarrhea. Patient denies any urinary burning or frequency On 03/01/2024 patient was seen and examined on the medical floor, she is somnolent responsive in no apparent distress , there is no fever or chills, no headache or dizziness no chest pain, or shortness of breath no cough no nausea or vomiting no abdominal pain no diarrhea, she has a Caba catheter at this time. Vital exam reveals a temperature of 98.2 pulse 108 respiration 17 blood pressure 146/79 pulse ox 98% on room air, laboratory data reveals a white blood count of 11.3 hemoglobin 12.1 platelet count 221 BUN 27 creatinine 1.14 chest x- ray done yesterday reveals moderate size left pleural effusion with adjacent left lower lobe consolidation and additional patchy right upper lobe opacity suspicious for multifocal pneumonia. Objective - Vital Signs Vital signs: Vital Signs Temp 98.1 F 03/01/24 07:26 Pulse 101 H 03/01/24 07:26 Resp 16 03/01/24 07:26 BP 138/77 03/01/24 07:26 Pulse Ox 100 03/01/24 07:26 FiO2 Intake & Output 02/29/24 03/01/24 03/01/24 18:59 06:59 18:59 Intake Total 355 Output Total 2968 300 Balance -2613 -300 Intake: Oral 355 Output: Urine 2968 300 Uretheral (Caba) 1400 Other: Voiding Method External Catheter Indwelling Catheter - Exam In general patient is alert, confused in no distress HEENT head normocephalic and atraumatic Neck is supple no JVD no goiter no lymphadenopathy no carotid bruit Chest examination is clear to auscultation no crackles no wheezing Cardiac exam reveals irregular heart sounds S1 and S2 with 3/6 systolic murmur in the left sternal border Abdomen is soft nontender no organomegaly with normal bowel sounds Extremity exam reveals no edema no cyanosis or clubbing Neurologica confused - Labs CBC & Chem 7: 03/01/24 07:10 03/01/24 07:10 Labs: Abnormal Lab Results - Last 24 Hours (Table) 02/29/24 02/29/24 02/29/24 Range/Units 05:25 05:25 05:25 WBC 10.06 H (4.50-10.00) X 10*3/uL RBC 3.79 L (4.10-5.20) X 10*6/uL Hgb 11.6 L (12.0-15.0) g/dL Hct 36.5 L (37.2-46.3) % MCHC 31.8 L (32.0-37.0) g/dL MPV 12.5 H (9.5-12.2) FL Monocytes # 1.03 H (0.20-1.00) X 10*3/uL Carbon Dioxide 19.8 L (21.6-31.8) mmol/L Anion Gap 14.20 H (4.00-12.00) mmol/L BUN/Creatinine Ratio 21.22 H (12.00-20.00) Ratio C-Reactive Protein 4.80 H (0.00-0.80) mg/dL Total Protein 5.5 L (6.2-8.2) g/dL Albumin 3.4 L (3.8-4.9) g/dL Urine Appearance (Clear) Urine Protein (Negative) Urine Blood (Negative) Ur Leukocyte Esterase (Negative) Urine RBC (0-5) /hpf Urine WBC (0-5) /hpf Urine WBC Clumps (None) /hpf Ur Squamous Epith Cells (0-4) /hpf Urine Bacteria (None) /hpf Hyaline Casts (0-2) /lpf Urine Mucus (None) /hpf Urine Yeast (Budding) (None) /hpf 02/29/24 Range/Units 20:16 WBC (4.50-10.00) X 10*3/uL RBC (4.10-5.20) X 10*6/uL Hgb (12.0-15.0) g/dL Hct (37.2-46.3) % MCHC (32.0-37.0) g/dL MPV (9.5-12.2) FL Monocytes # (0.20-1.00) X 10*3/uL Carbon Dioxide (21.6-31.8) mmol/L Anion Gap (4.00-12.00) mmol/L BUN/Creatinine Ratio (12.00-20.00) Ratio C-Reactive Protein (0.00-0.80) mg/dL Total Protein (6.2-8.2) g/dL Albumin (3.8-4.9) g/dL Urine Appearance Cloudy H (Clear) Urine Protein 1+ H (Negative) Urine Blood Moderate H (Negative) Ur Leukocyte Esterase Large H (Negative) Urine RBC 95 H (0-5) /hpf Urine WBC 83 H (0-5) /hpf Urine WBC Clumps Occasional H (None) /hpf Ur Squamous Epith Cells 17 H (0-4) /hpf Urine Bacteria Rare H (None) /hpf Hyaline Casts 4 H (0-2) /lpf Urine Mucus Rare H (None) /hpf Urine Yeast (Budding) Rare H (None) /hpf Assessment and Plan Assessment: Acute confusion with agitation Recent admission with syncopal episode 1 month ago Recent urinary tract infection, resolved urine now is clear Underlying history of atrial fibrillation Underlying history of hypertension At this time patient was seen and examined Home medications reviewed and reordered Neurology consultation and psychiatry consultation requested Will follow closely recheck labs in the a.m. For DVT prophylaxis patient is on Eliquis
--- NOTE | 2024-03-02 07:57 | P.PN ---
Subjective Progress Note Date: 03/01/24 Principal diagnosis: Reason for follow-up is fever/pneumonia/UTI Patient is a 88-year-old female with a past medical history significant for atrial fibrillation heart failure hypertension anxiety patient has been brought to the hospital for evaluation of confusion and hallucination and increased weakness, did have a low-grade fever elevated white count prompting this consultation On today's evaluation that is 03/01/2024, patient has been afebrile, patient is breathing comfortably and is currently on room air, patient slightly more awake today compared to yesterday however has not been good historian no vomiting or diarrhea has been reported by the nursing staff. Patient white count is 11.3 creatinine is 1.14 UA positive chest x-ray small to moderate size left effusion with adjacent left lower consolidation concerning for pneumonia Objective - Vital Signs Vital signs: Vital Signs Temp 98.1 F 03/01/24 07:26 Pulse 101 H 03/01/24 07:26 Resp 16 03/01/24 07:26 BP 138/77 03/01/24 07:26 Pulse Ox 100 03/01/24 07:26 FiO2 Intake & Output 02/29/24 03/01/24 03/01/24 18:59 06:59 18:59 Intake Total 355 Output Total 2968 300 Balance -2613 -300 Weight 70.307 kg Intake: Oral 355 Output: Urine 2968 300 Uretheral (Caba) 1400 Other: Voiding Method External Catheter Indwelling Catheter Indwelling Catheter # Bowel Movements 1 - Exam GENERAL DESCRIPTION: An elderly female lying in bed in no distress RESPIRATORY SYSTEM: Unlabored breathing , decreased breath sounds at bases HEART: S1 S2 regular rate and rhythm , ABDOMEN: Soft , no tenderness EXTREMITIES: No edema feet - Labs CBC & Chem 7: 03/01/24 07:10 03/01/24 07:10 Labs: Abnormal Lab Results - Last 24 Hours (Table) 02/29/24 02/29/24 03/01/24 Range/Units 05:25 20:16 07:10 WBC 11.3 H (3.8-10.6) k/uL Neutrophils # 8.3 H (1.3-7.7) k/uL Sodium (137-145) mmol/L Carbon Dioxide (22-30) mmol/L BUN (7-17) mg/dL Creatinine (0.52-1.04) mg/dL Glucose (74-99) mg/dL C-Reactive Protein 4.80 H (0.00-0.80) mg/dL Total Protein (6.3-8.2) g/dL Albumin (3.5-5.0) g/dL Urine Appearance Cloudy H (Clear) Urine Protein 1+ H (Negative) Urine Blood Moderate H (Negative) Ur Leukocyte Esterase Large H (Negative) Urine RBC 95 H (0-5) /hpf Urine WBC 83 H (0-5) /hpf Urine WBC Clumps Occasional H (None) /hpf Ur Squamous Epith Cells 17 H (0-4) /hpf Urine Bacteria Rare H (None) /hpf Hyaline Casts 4 H (0-2) /lpf Urine Mucus Rare H (None) /hpf Urine Yeast (Budding) Rare H (None) /hpf 03/01/24 Range/Units 07:10 WBC (3.8-10.6) k/uL Neutrophils # (1.3-7.7) k/uL Sodium 136 L (137-145) mmol/L Carbon Dioxide 19 L (22-30) mmol/L BUN 27 H (7-17) mg/dL Creatinine 1.14 H (0.52-1.04) mg/dL Glucose 109 H (74-99) mg/dL C-Reactive Protein (0.00-0.80) mg/dL Total Protein 5.3 L (6.3-8.2) g/dL Albumin 2.9 L (3.5-5.0) g/dL Urine Appearance (Clear) Urine Protein (Negative) Urine Blood (Negative) Ur Leukocyte Esterase (Negative) Urine RBC (0-5) /hpf Urine WBC (0-5) /hpf Urine WBC Clumps (None) /hpf Ur Squamous Epith Cells (0-4) /hpf Urine Bacteria (None) /hpf Hyaline Casts (0-2) /lpf Urine Mucus (None) /hpf Urine Yeast (Budding) (None) /hpf Microbiology - Last 24 Hours (Table) 02/29/24 05:43 Stool Culture - Preliminary Stool Assessment and Plan (1) Fever Current Visit: Yes Status: Acute Code(s): R50.9 - FEVER, UNSPECIFIED SNOMED Code(s): 014755749 (2) Leukocytosis Current Visit: Yes Status: Acute Code(s): D72.829 - ELEVATED WHITE BLOOD CELL COUNT, UNSPECIFIED SNOMED Code(s): 093920485 (3) Pneumonia Current Visit: Yes Status: Acute Code(s): J18.9 - PNEUMONIA, UNSPECIFIED ORGANISM SNOMED Code(s): 327130732 Plan: 1patient with a low-grade fever and elevated white count during this admission and this patient has been in the hospital for almost 10 days before initial evaluation on 02/29/2024 admitted for generalized weakness and confusion with a source possible pneumonia as as the patient was noticed to have a congested cough versus UTI. 2patient did have a positive UA chest x-ray did shows left-sided effusion and possible consolidation likely etiology for her fever 3blood cultures has been obtained which are currently pending 4-patient to continue with the Zosyn while waiting for the workup to be completed Dictation was produced using [employer] dictation software. please excuse any grammatical, word or spelling errors. Time with Patient: Less than 30
--- NOTE | 2024-03-02 08:49 | P.PN ---
Subjective Progress Note Date: 03/02/24 Sandra Pro, is an 88-year-old female who was brought into [facility] emergency room, due to mental status changes confusion and agitation. She was evaluated in the emergency room vital examination on presentation revealed a temperature of 97.4 pulse 74 respiration 20 blood pressure 150/78 pulse ox 96% on room air Laboratory data reveals a white blood count of 7.2 hemoglobin 12.8 platelet count 228 BUN 37 creatinine 1.4 Testing in the emergency room revealed chest x-ray done in the emergency room revealed cardiomegaly with pulmonary vascular congestion and small left pleural effusion, CT scan of the brain without contrast done in the emergency room revealed no acute intracranial abnormality Patient was admitted to medical floor for further evaluation and treatment On 02/20/2024 patient remains confused in bed. Patient was evaluated by psychiatry services Zyprexa and Seroquel had been added. EEG also ordered per neurology. Current vital signs temp 97.7, heart 62, respiratory rate 132/78 with a pulse ox of 96% on room air On 02/21/2024 patient remains confused in bed more sleepy today. Patient's grand granddaughter at bedside. Per patient's granddaughter patient is less agitated since the initiation of Seroquel. Neurology and psychiatry services are following. Family requesting patient be started on antibiotics because she was getting treated for UTI outpatient. UA was negative but due to sudden change of mental status changes will start on Rocephin obtain urine culture. Blood culture also will be ordered. Will also start patient on gentle hydration due to poor oral intake. Current vital signs temp 98.1, heart rate 84, respiratory rate 20, blood pressure 124/89 with a pulse ox of 99% on room air On 02/22/2024 patient was seen and examined on the medical floor she is somnolent responsive answering few questions by yes or no, no new episodes of agitation today, she remains on Zyprexa 5 mg twice daily as needed and Seroquel 50 mg at bedtime and 25 mg in the morning, patient is also maintained on IV ceftriaxone for urinary tract infection On 02/23/2024 patient was seen and examined on the medical floor, she is more alert and oriented today there is no fever or chills no headache or dizziness no chest pain no shortness of breath no cough no nausea or vomiting no abdominal pain no diarrhea no urinary symptoms, sodium is elevated at 149 will change IV fluid to 0.45 at 75 cc/h, will do a trial of removing Caba catheter, MRI of the brain within normal limits discussed with patient and her family in details, EEG done today is still pending, will recheck in a.m. On 02/24/2024 patient remains on the medical floor she is alert remains confused. Patient nydia on fluid and IV Rocephin neurology and psychiatry services are following. PT and OT services consulted social work consulted for discharge planning. Patient denies chest pain or shortness of breath. Patient denies nausea vomiting or diarrhea. Patient denies any urinary burning or frequency On 02/25/2024 patient is resting comfortably in bed. Patient was started on prophylactic Vimpat per neurology services. DC planning in place to return to [facility]. At this time patient denies chest pain or shortness of breath. Patient denies nausea vomiting or diarrhea. Patient denies any urinary burning or frequency On 02/26/2024 patient was seen and examined on the medical floor she is alert and oriented x 3 in no apparent distress she is answering questions appropriately she ate part of her breakfast this morning there is no fever or chills no headache or dizziness no chest pain no shortness of breath no cough no nausea or vomiting no abdominal pain no diarrhea and no urinary symptoms. On 02/27/2024 patient's more alert still confused resting comfortably in bed. Patient having low-grade temp of 99.9. Will order chest x-ray to rule out pneumonia. Patient has been on Rocephin for 5 hide 5 days will DC at this time and if patient starts having diarrhea test for C. difficile. Discharge planning in progress. At this time patient denies chest pain or shortness of breath. Patient denies nausea vomiting or diarrhea. Patient denies any urinary burning or frequency. On 02/28/2024 patient was seen and examined on the medical floor she is somnolent arousable, in no apparent distress, she answers few questions by yes and no and goes back to closing her eyes, she has low-grade fever of 99.2, white blood count is slightly more elevated today at 11.6, patient completed a course of ceftriaxone for urinary tract infection, currently she is not on any antibiotics, potassium is low at 3.4, will correct per protocol, yesterday a chest x-ray was ordered however family refused to have it completed, they will be counseled in regard to importance to rule out any infectious process in the chest in view of elevated white blood count and low-grade fever, and possible aspiration. Will continue to hold off antibiotics today, will check chest x-ray 1 view and check procalcitonin level, will continue to follow closely. On 02/29/2024 patient is resting comfortably bed. Pro-calcitonin still pending. Patient having low-grade temps 99.6 will have infectious disease services.Patient denies chest pain or shortness breath. Patient denies nausea vomiting or diarrhea. Patient denies any urinary burning or frequency On 03/01/2024 patient was seen and examined on the medical floor, she is somnolent responsive in no apparent distress , there is no fever or chills, no headache or dizziness no chest pain, or shortness of breath no cough no nausea or vomiting no abdominal pain no diarrhea, she has a Caba catheter at this time. Vital exam reveals a temperature of 98.2 pulse 108 respiration 17 blood pressure 146/79 pulse ox 98% on room air, laboratory data reveals a white blood count of 11.3 hemoglobin 12.1 platelet count 221 BUN 27 creatinine 1.14 chest x- ray done yesterday reveals moderate size left pleural effusion with adjacent left lower lobe consolidation and additional patchy right upper lobe opacity suspicious for multifocal pneumonia. On 03/02/2024 patient is resting comfortably in bed remains confused patient nydia on IV Zosyn for aspiration pneumonia. Pulmonary infectious disease and neurology services are all following. Patient denies chest pain or shortness of breath. Patient denies nausea vomiting or diarrhea. Patient denies any urinary burning or frequency. Diet adjusted per speech therapy's recommendation. Current vital signs temp 97.6, heart rate 90, respiratory rate 19, blood pressure 140/65 Objective - Vital Signs Vital signs: Vital Signs Temp 98.9 F 03/02/24 07:22 Pulse 117 H 03/02/24 07:22 Resp 15 03/02/24 07:22 BP 107/56 03/02/24 07:22 Pulse Ox 93 L 03/02/24 07:22 FiO2 Intake & Output 03/01/24 03/02/24 03/02/24 18:59 06:59 18:59 Output Total 575 900 Balance -575 -900 Weight 70.307 kg Output: Urine 575 900 Other: Voiding Method Indwelling Catheter Indwelling Catheter # Bowel Movements 1 1 - Exam In general patient is alert, confused in no distress HEENT head normocephalic and atraumatic Neck is supple no JVD no goiter no lymphadenopathy no carotid bruit Chest examination is clear to auscultation no crackles no wheezing Cardiac exam reveals irregular heart sounds S1 and S2 with 3/6 systolic murmur in the left sternal border Abdomen is soft nontender no organomegaly with normal bowel sounds Extremity exam reveals no edema no cyanosis or clubbing Neurologica confused - Labs CBC & Chem 7: 03/01/24 07:10 03/01/24 07:10 Labs: Microbiology - Last 24 Hours (Table) 02/29/24 17:31 Blood Culture - Preliminary Blood 02/29/24 05:43 Stool Culture - Preliminary Stool Assessment and Plan Assessment: Acute confusion with agitation Recent admission with syncopal episode 1 month ago Aspiration pneumonia. Patient started on Zosyn Recent urinary tract infection, resolved urine now is clear Underlying history of atrial fibrillation Underlying history of hypertension At this time patient was seen and examined Home medications reviewed and reordered Neurology consultation and psychiatry consultation requested Will follow closely recheck labs in the a.m. For DVT prophylaxis patient is on Eliquis
--- NOTE | 2024-03-02 13:16 | P.DS ---
Providers Date of admission: 02/20/24 11:00 Attending physician: Kumar Bianchi Consults: 02/19/24 07:58 Consult Physician Routine Consulting Provider: Harlan Foster Consult Reason/Comments: mental status changes Do you want consulting provider notified?: Yes 02/19/24 10:01 Consult Physician Routine Consulting Provider: Rebekah Pavon Consult Reason/Comments: Confusion and agitation Do you want consulting provider notified?: Already Contacted 02/29/24 09:18 Consult Physician Routine Consulting Provider: Corry Leon Consult Reason/Comments: fever, Do you want consulting provider notified?: Yes 02/29/24 15:36 Consult Physician Routine Consulting Provider: Zeferino Burr Consult Reason/Comments: possible pneumonia Do you want consulting provider notified?: Yes Primary care physician: Laura Terrazas Hospital Course: Diagnosis on discharge: Acute confusion with agitation Recent admission with syncopal episode 1 month ago Aspiration pneumonia. Patient started on Zosyn Recent urinary tract infection, resolved urine now is clear Underlying history of atrial fibrillation Underlying history of hypertension Hospital course: Sandra Pro, is an 88-year-old female who was brought into [facility] emergency room, due to mental status changes confusion and agitation. She was evaluated in the emergency room vital examination on presentation revealed a temperature of 97.4 pulse 74 respiration 20 blood pressure 150/78 pulse ox 96% on room air Laboratory data reveals a white blood count of 7.2 hemoglobin 12.8 platelet count 228 BUN 37 creatinine 1.4 Testing in the emergency room revealed chest x-ray done in the emergency room revealed cardiomegaly with pulmonary vascular congestion and small left pleural effusion, CT scan of the brain without contrast done in the emergency room revealed no acute intracranial abnormality Patient was admitted to medical floor for further evaluation and treatment On 02/20/2024 patient remains confused in bed. Patient was evaluated by psychiatry services Zyprexa and Seroquel had been added. EEG also ordered per neurology. Current vital signs temp 97.7, heart 62, respiratory rate 132/78 with a pulse ox of 96% on room air On 02/21/2024 patient remains confused in bed more sleepy today. Patient's grand granddaughter at bedside. Per patient's granddaughter patient is less agitated since the initiation of Seroquel. Neurology and psychiatry services are following. Family requesting patient be started on antibiotics because she was getting treated for UTI outpatient. UA was negative but due to sudden change of mental status changes will start on Rocephin obtain urine culture. Blood culture also will be ordered. Will also start patient on gentle hydration due to poor oral intake. Current vital signs temp 98.1, heart rate 84, respiratory rate 20, blood pressure 124/89 with a pulse ox of 99% on room air On 02/22/2024 patient was seen and examined on the medical floor she is somnolent responsive answering few questions by yes or no, no new episodes of agitation today, she remains on Zyprexa 5 mg twice daily as needed and Seroquel 50 mg at bedtime and 25 mg in the morning, patient is also maintained on IV ceftriaxone for urinary tract infection On 02/23/2024 patient was seen and examined on the medical floor, she is more alert and oriented today there is no fever or chills no headache or dizziness no chest pain no shortness of breath no cough no nausea or vomiting no abdominal pain no diarrhea no urinary symptoms, sodium is elevated at 149 will change IV fluid to 0.45 at 75 cc/h, will do a trial of removing Caba catheter, MRI of the brain within normal limits discussed with patient and her family in details, EEG done today is still pending, will recheck in a.m. On 02/24/2024 patient remains on the medical floor she is alert remains confused. Patient nydia on fluid and IV Rocephin neurology and psychiatry services are following. PT and OT services consulted social work consulted for discharge planning. Patient denies chest pain or shortness of breath. Patient denies nausea vomiting or diarrhea. Patient denies any urinary burning or frequency On 02/25/2024 patient is resting comfortably in bed. Patient was started on prophylactic Vimpat per neurology services. DC planning in place to return to [facility] care unit. At this time patient denies chest pain or shortness of breath. Patient denies nausea vomiting or diarrhea. Patient denies any urinary burning or frequency On 02/26/2024 patient was seen and examined on the medical floor she is alert and oriented x 3 in no apparent distress she is answering questions appropriately she ate part of her breakfast this morning there is no fever or chills no headache or dizziness no chest pain no shortness of breath no cough no nausea or vomiting no abdominal pain no diarrhea and no urinary symptoms. On 02/27/2024 patient's more alert still confused resting comfortably in bed. Patient having low-grade temp of 99.9. Will order chest x-ray to rule out pneumonia. Patient has been on Rocephin for 5 hide 5 days will DC at this time and if patient starts having diarrhea test for C. difficile. Discharge planning in progress. At this time patient denies chest pain or shortness of breath. Patient denies nausea vomiting or diarrhea. Patient denies any urinary burning or frequency. On 02/28/2024 patient was seen and examined on the medical floor she is somnolent arousable, in no apparent distress, she answers few questions by yes and no and goes back to closing her eyes, she has low-grade fever of 99.2, white blood count is slightly more elevated today at 11.6, patient completed a course of ceftriaxone for urinary tract infection, currently she is not on any antibiotics, potassium is low at 3.4, will correct per protocol, yesterday a chest x-ray was ordered however family refused to have it completed, they will be counseled in regard to importance to rule out any infectious process in the chest in view of elevated white blood count and low-grade fever, and possible aspiration. Will continue to hold off antibiotics today, will check chest x-ray 1 view and check procalcitonin level, will continue to follow closely. On 02/29/2024 patient is resting comfortably bed. Pro-calcitonin still pending. Patient having low-grade temps 99.6 will have infectious disease services.Patient denies chest pain or shortness breath. Patient denies nausea vomiting or diarrhea. Patient denies any urinary burning or frequency On 03/01/2024 patient was seen and examined on the medical floor, she is somnolent responsive in no apparent distress , there is no fever or chills, no headache or dizziness no chest pain, or shortness of breath no cough no nausea or vomiting no abdominal pain no diarrhea, she has a Caba catheter at this time. Vital exam reveals a temperature of 98.2 pulse 108 respiration 17 blood pressure 146/79 pulse ox 98% on room air, laboratory data reveals a white blood count of 11.3 hemoglobin 12.1 platelet count 221 BUN 27 creatinine 1.14 chest x- ray done yesterday reveals moderate size left pleural effusion with adjacent left lower lobe consolidation and additional patchy right upper lobe opacity suspicious for multifocal pneumonia. On 03/02/2024 patient is resting comfortably in bed remains confused patient nydia on IV Zosyn for aspiration pneumonia. Pulmonary infectious disease and neurology services are all following. Patient denies chest pain or shortness of breath. Patient denies nausea vomiting or diarrhea. Patient denies any urinary burning or frequency. Diet adjusted per speech therapy's recommendation. Current vital signs temp 97.6, heart rate 90, respiratory rate 19, blood pre ssure 140/65 At this time patient is insisting on having patient discharged to [facility] where she will be started on hospice care. Current diagnoses include left lower lobe pneumonia small to moderate size left pleural effusion and right upper lobe pneumonia, this may be related to aspiration, patient is maintained on IV Zosyn. Patient also has encephalopathy which could be related to me tabolic reason related to her recurrent urinary tract infections and currently bilateral pneumonia, she was evaluated by neurology repeatedly during this admission, there was no evidence of stroke or seizure disorder, she was also evaluated by psychiatry, pulmonary critical care, and infectious disease. At the time of discharge patient should be continued on her current medications, which could be de-escalated if patient is started on hospice care. Patient Condition at Discharge: Stable Plan - Discharge Summary Discharge Rx Participant: No New Discharge Prescriptions: New Nystatin 100,000 Unit/ml Susp [Mycostatin Oral Susp] 500,000 unit PO QID #0 ml QUEtiapine [SEROquel] 75 mg PO HS tab Piperacillin-Tazobactam [Zosyn] 3.375 gm IVPB Q8HR each OLANZapine ODT [ZyPREXA Zydis] 5 mg PO BID PRN tab PRN Reason: Agitation Continue allopurinoL [Zyloprim] 100 mg PO DAILY@0800 Simvastatin [Zocor] 20 mg PO HS@2000 Furosemide [Lasix] 20 mg PO DAILY@0800 Apixaban [Eliquis] 5 mg PO BID@0800,1999 Caldesene Powder 1 applic TOPICAL TID Ocusoft Lid Pad Scrub 1 pad BOTH EYES DAILY@0800 Refresh Classic Pf 1.4-0.6% 2 drops BOTH EYES Q12H PRN PRN Reason: dry eyes Acetaminophen [Tylenol] 650 mg PO Q4H PRN MDD 4000mg PRN Reason: Pain Or Fever > 100.5 Ensure 1 can PO BID@ Magnesium Hydroxide [Milk of Magnesia] 2,400 mg PO DAILY PRN PRN Reason: Constipation traMADol HCL 25 mg PO Q8H PRN PRN Reason: Pain Metoprolol Tartrate [Lopressor] 50 mg PO BID@ Aspirin EC [Ecotrin Low Dose] 81 mg PO DAILY@799 hydrALAZINE HCL [Apresoline] 25 mg PO BID@ ALPRAZolam [Xanax] 0.25 mg PO TID PRN PRN Reason: Anxiety bisacodyL [Dulcolax] 10 mg RECTAL DAILY PRN PRN Reason: Constipation Melatonin 3 mg PO HS PRN PRN Reason: sleep Menthol-Zinc Oxide Oint [Calmoseptine Ointment] 1 applic TOPICAL TID Sennosides [Senokot] 8.6 mg PO BID@ Discontinued Carbamide Peroxide [Debrox Otic] 10 drops BOTH EARS WE@0800 Ciprofloxacin HCl [Cipro] 500 mg PO BID@799,1999 Discharge Medication List Apixaban [Eliquis] 5 mg PO BID@799,199905/16/21 [History] Aspirin EC [Ecotrin Low Dose] 81 mg PO DAILY@0805/16/21 [History] Furosemide [Lasix] 20 mg PO DAILY@0805/16/21 [History] Metoprolol Tartrate [Lopressor] 50 mg PO BID@05/16/21 [History] Simvastatin [Zocor] 20 mg PO HS@199905/16/21 [History] allopurinoL [Zyloprim] 100 mg PO DAILY@0805/16/21 [History] hydrALAZINE HCL [Apresoline] 25 mg PO BID@01/13/24 [History] ALPRAZolam [Xanax] 0.25 mg PO TID PRN 02/18/24 [History] Acetaminophen [Tylenol] 650 mg PO Q4H PRN MDD 4000mg 02/18/24 [History] Caldesene Powder 1 applic TOPICAL TID 02/18/24 [History] Ensure 1 can PO BID@02/18/24 [History] Magnesium Hydroxide [Milk of Magnesia] 2,400 mg PO DAILY PRN 02/18/24 [History] Melatonin 3 mg PO HS PRN 02/18/24 [History] Menthol-Zinc Oxide Oint [Calmoseptine Ointment] 1 applic TOPICAL TID 02/18/24 [History] Ocusoft Lid Pad Scrub 1 pad BOTH EYES DAILY@0800 02/18/24 [History] Refresh Classic Pf 1.4-0.6% 2 drops BOTH EYES Q12H PRN 02/18/24 [History] Sennosides [Senokot] 8.6 mg PO BID@0800,199902/18/24 [History] bisacodyL [Dulcolax] 10 mg RECTAL DAILY PRN 02/18/24 [History] traMADol HCL 25 mg PO Q8H PRN 02/18/24 [History] Nystatin 100,000 Unit/ml Susp [Mycostatin Oral Susp] 500,000 unit PO QID #0 ml 03/02/24 [Rx] OLANZapine ODT [ZyPREXA Zydis] 5 mg PO BID PRN tab 03/02/24 [Rx] Piperacillin-Tazobactam [Zosyn] 3.375 gm IVPB Q8HR each 03/02/24 [Rx] QUEtiapine [SEROquel] 75 mg PO HS tab 03/02/24 [Rx] Follow up Appointment(s)/Referral(s): Hospice,[facility] [NON-STAFF] - As Needed Kumar Bianchi MD [STAFF PHYSICIAN] - As Needed
--- NOTE | 2024-03-02 13:23 | P.PN ---
Subjective Progress Note Date: 03/02/24 This is an 88-year-old female patient who was admitted 10 days ago for altered mental status. She has been followed by both neurology and psychiatry. She has been more awake and alert. Yesterday a chest x-ray showed small to moderate left pleural effusion with adjacent left lower lobe consolidation reflecting atelectasis versus pneumonia. Additional patchy right upper lobe opacity suspicious for multifocal pneumonia. We are consulted for the same. Currently sitting up in bed. Awake and alert. Somewhat of a poor historian. She is maintaining good O2 saturations up to 100% on room air. She is afebrile. Hemodynamically stable.. Hemoglobin 12.1. Platelets 221. Sodium 136. Potassium 3.6. Bicarb 19. BUN 27. Creatinine 1.14. Glucose 109. Blood and urine cultures negative. She had been initiated on Zosyn. Anticoagulated with Eliquis. Remains on oral diuretics. The patient is seen today March 02, 2024 in follow-up on the regular medical floor. She is currently sitting up in bed. Awake and alert. Confused to time and place. She is maintaining good O2 saturations in the 90s on room air. Blood, urine and stool cultures all revealed no growth. No new labs today. She is currently on Zosyn. Remains on oral diuretics. Anticoagulated with Eliquis. Objective - Vital Signs Vital signs: Vital Signs Temp 98.9 F 03/02/24 07:22 Pulse 117 H 03/02/24 07:22 Resp 15 03/02/24 07:22 BP 107/56 03/02/24 07:22 Pulse Ox 93 L 03/02/24 07:22 FiO2 Intake & Output 03/01/24 03/02/24 03/02/24 18:59 06:59 18:59 Output Total 575 900 Balance -575 -900 Weight 70.307 kg Output: Urine 575 900 Other: Voiding Method Indwelling Catheter Indwelling Catheter Indwelling Catheter # Bowel Movements 1 1 - Exam GENERAL EXAM: Alert, confused to time and place, 88-year-old female, on room air, in no apparent distress. HEAD: Normocephalic. EYES: Normal reaction of pupils, equal size. NOSE: Clear with pink turbinates. THROAT: No erythema or exudates. NECK: No masses, no JVD. CHEST: No chest wall deformity. LUNGS: Equal air entry with few bilateral scattered rhonchi. CVS: S1 and S2 normal with no audible murmur, regular rhythm. ABDOMEN: No hepatosplenomegaly, normal bowel sounds, no guarding or rigidity. SPINE: No scoliosis or deformity SKIN: No rashes CENTRAL NERVOUS SYSTEM: No focal deficits, tone is normal in all 4 extremities. EXTREMITIES: There is no peripheral edema. No clubbing, no cyanosis. Peripheral pulses are intact. - Labs CBC & Chem 7: 03/01/24 07:10 03/01/24 07:10 Labs: Microbiology - Last 24 Hours (Table) 03/01/24 08:08 Urine Culture - Final Urine,Catheterized 02/29/24 05:43 Stool Culture - Preliminary Stool 02/29/24 20:16 Urine Culture - Final Urine,Voided 02/29/24 17:31 Blood Culture - Preliminary Blood Assessment and Plan Assessment: Dyspnea secondary to small to moderate left pleural effusion with adjacent consolidation and possible patchy right upper lobe opacity suspicious for pneumonia, suspect aspiration Altered mental status with agitation being followed by neurology and psychiatry History of atrial fibrillation, anticoagulated with Eliquis Hypertension Recent urinary tract infection Recent syncopal episode Plan: The patient was seen and evaluated Medications reviewed Currently stable and on room air Plan is to return to [facility] memory care unit with hospice at discharge I have personally seen and examined the patient, performed the documentation and the assessment and plan as written. Number of minutes spent on the visit: 10 Dictation was produced using [employer] dictation software. Please excuse any grammatical, word or spelling errors.
[2024-03-02 13:56] VITALS: BP 151/62; PULSE 127; RESP 18; TEMP 99
--- NOTE | 2024-03-02 15:59 | P.PN ---
Subjective Progress Note Date: 03/02/24 Principal diagnosis: Reason for follow-up is fever/pneumonia/UTI Patient is a 88-year-old female with a past medical history significant for atrial fibrillation heart failure hypertension anxiety patient has been brought to the hospital for evaluation of confusion and hallucination and increased weakness, did have a low-grade fever elevated white count prompting this consultation On today's evaluation that is 03/02/2024, Patient did have a low-grade fever of 99 degrees following axillary this morning patient is slightly tachycardic although breathing comfortably on room air patient remains to be lethargic and did not answer any question no vomiting or diarrhea has been reported. No new lab has been obtained today cultures currently pending Objective - Vital Signs Vital signs: Vital Signs Temp 98.9 F 03/02/24 07:22 Pulse 117 H 03/02/24 07:22 Resp 15 03/02/24 07:22 BP 107/56 03/02/24 07:22 Pulse Ox 93 L 03/02/24 07:22 FiO2 Intake & Output 03/01/24 03/02/24 03/02/24 18:59 06:59 18:59 Output Total 575 900 Balance -575 -900 Weight 70.307 kg Output: Urine 575 900 Other: Voiding Method Indwelling Catheter Indwelling Catheter Indwelling Catheter # Bowel Movements 1 1 - Exam GENERAL DESCRIPTION: An elderly female lying in bed in no distress RESPIRATORY SYSTEM: Unlabored breathing , decreased breath sounds at bases HEART: S1 S2 regular rate and rhythm , ABDOMEN: Soft , no tenderness EXTREMITIES: No edema feet - Labs CBC & Chem 7: 03/01/24 07:10 03/01/24 07:10 Labs: Microbiology - Last 24 Hours (Table) 02/29/24 05:43 Stool Culture - Preliminary Stool 02/29/24 20:16 Urine Culture - Final Urine,Voided 02/29/24 17:31 Blood Culture - Preliminary Blood Assessment and Plan (1) Fever Current Visit: Yes Status: Acute Code(s): R50.9 - FEVER, UNSPECIFIED SNOMED Code(s): 115823688 (2) Leukocytosis Current Visit: Yes Status: Acute Code(s): D72.829 - ELEVATED WHITE BLOOD CELL COUNT, UNSPECIFIED SNOMED Code(s): 365527862 (3) Pneumonia Current Visit: Yes Status: Acute Code(s): J18.9 - PNEUMONIA, UNSPECIFIED ORGANISM SNOMED Code(s): 386506621 Plan: 1patient with a low-grade fever and elevated white count during this admission and this patient has been in the hospital for almost 10 days before initial evaluation on 02/29/2024 admitted for generalized weakness and confusion with a source possible pneumonia as as the patient was noticed to have a congested cough versus UTI. 2patient did have a positive UA chest x-ray did shows left-sided effusion and possible consolidation likely etiology for her fever, urine culture have been negative 3blood cultures are currently pending, patient will be treated with Zosyn while waiting for the workup to be completed however possible plan for hospice which may be appropriate for her in that case antibiotics can be safely discontinued Dictation was produced using [employer] dictation software. please excuse any grammatical, word or spelling errors. Time with Patient: Less than 30
== END 2024-03-02 18:37 | disposition home health service (06) | DRG 177 ==
LOC: EC 17:07 → 6NMEDSUR 20:23 → OBSVTOIN 02-20 11:00
PROVIDERS: ADMIT Internal Medicine; ATTEND Internal Medicine
DX: J69.0 Pneumonitis due to inhalation of food and vomit (principal); G93.41 Metabolic encephalopathy; R41.0 Disorientation, unspecified; R45.1 Restlessness and agitation; Z79.01 Long term (current) use of anticoagulants; Z51.5 Encounter for palliative care; Z66 Do not resuscitate; I48.91 Unspecified atrial fibrillation; I50.9 Heart failure, unspecified; I11.0 Hypertensive heart disease with heart failure; N28.9 Disorder of kidney and ureter, unspecified; F41.9 Anxiety disorder, unspecified; Z79.82 Long term (current) use of aspirin; Z79.899 Other long term (current) drug therapy
CPT/HCPCS: 36415; 70450; 70551; 71045; 80053; 81001; 81003; 82140; 82565; 84145; 85025; 85610; 85730; 86140; 87040; 87045; 87046; 87086; 93005; 94760; 95816; 96361; 96374; 99285